=== PATIENT | female | born 1985 | race Caucasian/White ===

== ENCOUNTER 2018-12-05 18:01 | Inpatient (IN) ==
[~2018-12-05 18:01] MED LIST: CEFAZOLIN 2000MG 2,000 MG/15 ML SYR IV SCH
[2018-12-05] MEDS ORDERED: LACTATED RINGER'S 1,000 ML IV SCH ×3 (18:45→21:11)
--- NOTE | 2018-12-05 18:52 | Obstetrical Progress Note ---
Date of Service December 05, 2018 Assessment & Plan (1) Irregular contractions: Patient c/o contractions but nothing on monitor and she appears in no distress. Cervix is unchanged from yesterday. I'm unconvinced she is in true labor, though could be in latent phase. The challenge in this case is her tones. I have explained to the patient that I currently think her infant is likely truly tachycardic with decels and would recommend given she is 40wk, and that I do not feel she has the necessary time to allow for a TOLAC. She is very upset at the idea of a repeat and is tearful about this. I have reviewed the records and note that her prior occurred when she arrested dilation at 3cm with a 34wk baby, and I note the success calculator predicts a 44% chance of success. Further discussion with the patient will be ongoing but I anticipate moving to unless there is marked improvement in FHT soon. Present on Admission?: Yes (2) Previous delivery, antepartum condition or complication: Present on Admission?: Yes Subjective 33yo at 40wk presents with complaints of "labor for the last 62 hours." She reports contractions ranging from Q5-7 minutes since yesterday, when she was seen on L&D and sent home as cervix was unchanged. She returns today after calling the office to complain of ongoing painful contractions. She denies LOF, and has no VB, though she feels she lost her mucus plug earlier today. She reports good FM including here in L&D. Physical Exam Constitutional: WD/WN, vitals as above Eyes: PERRL, conjunctivae normal, anicteric sclerae ENMT: external ear and nose normal, oropharynx normal Neck: supple Respiratory: normal respiratory effort and able to speak in complete sentences; no respiratory distress Cardiovascular: Rate/Rhythm: regular rate and regular rhythm Extremities: + pedal edema Gastrointestinal (Abdomen): Gravid / AGA, nontender Musculoskeletal: no cyanosis or clubbing, extremities motor strength 5/5 Skin: no rashes, warm and dry Neurologic: patellar DTR's 2+ bilat, sensation intact Psychiatric: A+Ox3, euthymic affect Genitourinary: Speculum/Bimanual Exam: no vaginal lesions, no vaginal bleeding and uterus nontender OB Exam Abdomen: + vertex, + estimated weight (7) and + regular contractions (Q3) Manual OB Exam: + cervical dilation 1 cm, + cervical effacement 90%, + station -2 and + amniotic fluid (No leaking evident) OB Exam Monitor Tracing: + external FHT monitor used and + external uterine monitor used (No obvious contractions on short strip reviewed at the time I saw patient) Short tracing available thus far - baseline could be 160s with accels to 180, or baseline could be 180 with decels to 160. Variability is moderate. Lymphatic: no cervical or axillary lymphadenopathy Results & Data Vital Signs (Past 12 Hours) Vital Signs Temp Pulse Resp BP 12/05/18 18:07 98.2 F 96 H 22 131/88 PG Care Time/CCT Total # of Minutes Spent Total Time Spent with Patient: Total time spent is greater than 50% in coordination of care (as documented) at patient's floor/unit and/or counseling patient:
[2018-12-05] MEDS ORDERED: CITRIC ACID/SODIUM CITRATE 15 ML UDC ONE (18:59)
[2018-12-05 19:01] LABS: Basophils # (auto) 0.01 K/uL (0-0.2); Basophils % (auto) 0.1 %; Eosinophils # (auto) 0.04 K/uL (0-0.5); Eosinophils % (auto) 0.4 %; Hematocrit (blood only) 34.4 % (37-47); Hemoglobin 11.5 g/dL (12.0-16.0); Immature Granulocytes # (auto) 0.03 K/uL (0.00-0.02); Immature Granulocytes % (auto) 0.3 %; Lymphocytes # (auto) 1.76 K/uL (1.2-3.4); Mean Corpuscular Hemoglobin 27.5 pg (25-34); Mean Corpuscular Volume 82.3 fL (80-100); Mean Platelet Volume 10.3 fL (7.4-10.4); Monocytes # (auto) 0.89 K/uL (0.11-0.59); Monocytes % (auto) 8.6 %; Neutrophils # (auto) 7.64 K/uL (1.4-6.5); Neutrophils % (auto) 73.6 %; Platelet Count 233 K/uL (130-400); RDW Coefficient of Variation 14.9 % (11.5-14.5); RDW Standard Deviation 43.5 fL (36.4-46.3); Red Blood Count 4.18 M/uL (4.2-5.4); White Blood Count 10.37 K/uL (4.8-10.8)
--- NOTE | 2018-12-05 19:14 | Communication Note ---
Date of Service: December 05, 2018 Update: With further observation, the pattern of FHT appears to be most consistent with baseline 180bpm and late decels to 160, as contractions are now tracing at irregular intervals and each "dip" is preceded by a contraction. Patient counseled. She states she wants "to do whatever is best for baby." I recommended proceeding to and she agreed. She was consented with her two support persons in the room, as well as several nurses. Peds/Anesthesia have been notified. Neither are currently in-house and we are preparing for as we await their arrival.
[2018-12-05 19:21] LABS: Mean Corpuscular Hgb Conc 33.4 g/dL (32-36)
[2018-12-05] MEDS ORDERED: ePHEDrine sulfate 50 MG/ML AMP ONE (19:30)
[2018-12-05] MEDS ORDERED: ONDANSETRON INJ 2 MG/ML 2 ML VIAL ONE (19:30)
[2018-12-05] MEDS ORDERED: METOCLOPRAMIDE HCL INJ 5 MG/ML 2 ML VIAL ONE (19:30)
[2018-12-05] MEDS ORDERED: OXYTOCIN 10 UNITS/ML VIAL ONE ×3 (19:30→20:15)
[2018-12-05] MEDS ORDERED: MoRPHine SULFATE PF 1 MG/ML 10 ML AMP/VIAL ONE (19:30)
[2018-12-05] MEDS ORDERED: PHENYLEPHRINE HCL 10 MG/ML VIAL ONE (19:30)
[2018-12-05] MEDS ORDERED: fentaNYL citrate 100 MCG/2 ML VIAL ONE (19:30)
--- NOTE | 2018-12-05 20:41 | Operative Report ---
PG Post Operative Report Pre & Post Diagnosis Operation Date: 12/05/18 18:55 Pre-Op Diagnosis: 1.) Single IUP at 2.) Prior Section 3.) Non Reasurring Heart Tones 4.) Remote From Delivery Post-Op Diagnosis: Same as PreOp Procedure Operation Date: 12/05/18 18:55 Actual Procedures p Repeat low transverse Section - Lauren Hughes MD Surgeon Lauren Hughes MD Chief Digital Media Officer Carolynn Luz RN Estimated Blood Loss 650 Findings Consistent with Post-Op Diagnosis Specimens Placenta, cord blood Anesthesia Type Spinal Complications none Disposition Accompanied Patient To Recovery: Yes Disposition: L&D Description of Procedure The patient was brought to the operating room and placed on the table in the supine position with a leftward tilt, then prepped and draped in standard sterile fashion. A hard time out was taken prior to proceeding. A pfannensteil incision was created sharply and carried down to the fascia using bovie electrocautery. The fascia was nicked and then extended using velazco scissors. The edges of the fascia were grasped with Fabiola clamps and elevated, then sharply and bluntly dissected off the underlying rectus. The midline of the rectus was identified and bluntly . The peritoneum was bluntly entered, and this entry was extended using pressure from the surgeon's hands. The bladder retractor was placed and the lower uterine segment was examined and found to be well developed. A bladder flap was created and the retractor was replaced behind this flap to protect the bladder. A transverse lower uterine incision was then created, with final entry to the uterine cavity made in a blunt manner with the surgeon's finger. Clear amniotic fluid was encountered. The head was elevated to the incision and delivered using mild fundal pressure. The cord was doubly clamped and cut, then the vigorous was taken to the warmer for philosophy instructor care. The placenta was manually extracted, then the uterus was gently exteriorized from the maternal abdomen. The cavity was cleared of clot and debris using a dry lap sponge. The angles of the incision were identified with allis clamps, and the hysterotomy was then repaired in running locked fashion using 0-vicryl suture, followed by a second imbricating layer. The tubes and ovaries were examined and found to be normal bilaterally. The posterior gutter was irrigated and cleared of clot and debris. The uterus was then gently re-internalized to the abdomen. Lateral gutters were cleared of clot and debris using a damp lap sponge, and a final exam of the hysterotomy revealed a slight ooze at the R angle. This was controlled with application of 1gm navid and pressure. The rectus muscles were then allowed to reapproximate naturally. The angle of the fascia was grasped with a Fabiola clamp and the fascia was then repaired in running non-locked fashion with 1- vicryl suture. At the completion of repair, the fascia was examined and found to be free of any defect. The subcutaneous tissue was copiously irrigated and then reapproximated using 3-0 chromic. The skin was then closed using 4-0 monocryl in a running subcuticular fashion and a dermabond dressing was applied. The elliott was noted to be draining clear yellow urine as the patient was transferred back to her recovery room. I attest to the content of the Intraoperative Record and any orders documented therein. Any exceptions are noted below.
[2018-12-05] MEDS ORDERED: LACTATED RINGER'S 500 ML IV PRN (20:51)
[2018-12-05] MEDS ORDERED: METOCLOPRAMIDE HCL 20 MG in SODIUM CHLORIDE 0.9% 50 ML IV PRN (20:51)
[2018-12-05] MEDS ORDERED: NALOXONE HCL 0.4 MG/1 ML VIAL/CARP IV PRN (20:51)
[2018-12-05] MEDS ORDERED: MoRPHine SULFATE 2 MG/ML CARP IV PRN (20:51)
[2018-12-05] MEDS ORDERED: MoRPHine SULFATE PF 1 MG/ML 10 ML AMP/VIAL INT SPINAL ONE (20:51)
[2018-12-05] MEDS ORDERED: ONDANSETRON INJ 2 MG/ML 2 ML VIAL IV PRN ×2 (20:51→21:11)
[2018-12-05] MEDS ORDERED: NALOXONE HCL 1 MG in SODIUM CHLORIDE 0.9% 1000ML 1,000 ML IV PRN (20:51)
[2018-12-05] MEDS ORDERED: NALOXONE HCL 0.08 MG in SYRINGE 1.8 ML IV PRN (20:51)
[2018-12-05] MEDS ORDERED: DiphenhydrAMINE HCL 50 MG/ML VIAL IV PRN ×2 (20:51→21:11)
[2018-12-05] MEDS ORDERED: PROMETHAZINE HCL 25 MG in SODIUM CHLORIDE 0.9% 50 ML IV PRN ×2 (20:51→21:11)
[2018-12-05] MEDS ORDERED: ePHEDrine sulfate 50 MG/ML AMP IV PRN (20:51)
[2018-12-05] MEDS ORDERED: NALBUPHINE HCL INJ 10 MG/ML AMP IV PRN (20:51)
[2018-12-05] MEDS ORDERED: MEPERIDINE HCL 25 MG/ML CARP IV PRN (20:51)
--- NOTE | 2018-12-05 20:51 | Anesthesiology Consultation ---
Date of Service December 05, 2018 Assessment & Plan Chart Review Chart Review: Acceptable Risk for Surgery late entry secondary to urgent C/S. Full consult was performed with patient and consent signed prior to OR entrance Consults Requested none ASA ASA2 Proposed Anesthesia Anesthesia Type: Spinal History Surgery Operation Date: 12/05/18 18:55 Proposed Procedures p Section in - Lauren Hughes MD Height/Weight Height: 5 ft 3 in Weight: 94.801 kg Allergies Allergy/AdvReac Type Severity Reaction Status Date / Time Penicillins Allergy Verified 11/28/18 15:48 Medications Home Medications Medication Instructions Recorded Confirmed Last Taken vit-iron fum-folic ac 1 tab PO DAILY 12/04/18 12/04/18 12/03/18 08:00 [ Vitamin] ranitidine HCl 150 mg PO DAILY 12/04/18 12/04/18 12/03/18 08:00 sertraline [Zoloft] 25 mg PO DAILY 12/04/18 12/04/18 12/03/18 08:00 Active Medications Generic Name Dose Route Start Last Admin Trade Name Mary Kay PRN Reason Stop Dose Admin Citric Acid/Sodium Citrate 30 ml 12/06/18 06:00 12/05/18 19:20 Bicitra PO 12/06/18 06:01 30 ml PREOP EMILY Administration Cefazolin Sodium 2,000 mg in 15 mls @ 3.75 mls/min 12/05/18 06:00 12/05/18 19:33 Ancef 2000mg IV 12/05/18 23:00 3.75 mls/min PREOP EMILY Administration Protocol NPO Date Last Intake of Fluids: 12/05/18 Time Last Intake of Fluids: 18:45 Last Intake of Fluids Comment: water Date Last Intake of Solids: 12/05/18 Time Last Intake of Solids: 14:00 Past Medical History Medical History Ovarian cyst Varicella Exercise / Class Metabolic Activity II 4-5 Yardwork/Stairs/Walk up hill Past Family History Family History Father Hypertension Past Surgical History Surgical History H/O cervical biopsy H/O section H/O dilation and curettage History of oral surgery Past Anesthesia History No Hx of Anesthesia Complications and No Family Hx of Anesthesia Complications History of PONV No Hx of PONV and No Hx of Motion Sickness Social History Smoking Status: Former smoker tobacco type: e-cigarettes Do You Dip or Chew Tobacco: No Hx Alcohol Use: No Hx Substance Use: No substance use type: does not use Physical Exam Vital Signs Last Vital Signs Temp 36.8 C 12/05/18 18:07 Pulse 81 12/05/18 20:48 Resp 22 12/05/18 18:07 BP 120/73 12/05/18 20:43 Pulse Ox 98 12/05/18 20:48 ENMT Mouth: no TMJ abnormality Thyromental Distance: > or= 3.5 Finger Breadths Mallampati Class: II Neck normal visual inspection and trachea midline; neck extension not limited Respiratory normal respiratory effort Auscultation: lungs clear to auscultation bilaterally Cardiovascular Rate/Rhythm: regular rate and regular rhythm Heart Sounds: no murmur Musculoskeletal Spine: normal cervical ROM Extremities: full ROM of extremities Neurologic moves all extremities Psychiatric Orientation: alert and oriented x 3 Testing Laboratory Results 12/05/18 18:54 Blood Type A Positive 12/05/18 18:54 Antibody Screen NEGATIVE 12/05/18 18:54
--- NOTE | 2018-12-05 20:54 | Anesthesiology Progress Note ---
Date of Service December 05, 2018 Anesthesia Post Procedure Vital Signs Vital Signs: Temp Pulse Resp BP Pulse Ox 12/05/18 20:48 81 98 12/05/18 20:43 81 120/73 97 12/05/18 19:01 97 H 133/101 H 12/05/18 18:58 92 H 128/100 12/05/18 18:07 36.8 C 96 H 22 131/88 Transfer of Care Handoff Completed per policy Notes Mental Status: alert / awake / arousable and participated in evaluation Nausea / Vomiting: adequately controlled Pain: adequately controlled Airway Patency, RR, SpO2: stable & adequate BP & HR: stable & adequate Hydration State: stable & adequate Neuraxial Anesthesia: was administered Anesthetic Complications: no major complications apparent
[2018-12-05] MEDS ORDERED: DC INTRASPINAL MORPHINE SCH (21:00)
[2018-12-05] MEDS ORDERED: NO NARCOTICS OR SEDATIVES SCH (21:00)
[2018-12-05] MEDS ORDERED: SODIUM CHLORIDE 0.9% 1000ML 1,000 ML IV SCH (21:00)
[2018-12-05] MEDS ORDERED: BENZOCAINE 20% AER SPR 82.5 GM CAN EXT PRN (21:11)
[2018-12-05] MEDS ORDERED: HYDROCORTISONE ACETATE 25 MG SUPP PR PRN (21:11)
[2018-12-05] MEDS ORDERED: SENNA 8.6 MG TAB PO PRN (21:11)
[2018-12-05] MEDS ORDERED: MAGNESIUM HYDROXIDE SUSP 30 ML UDC PO PRN (21:11)
[2018-12-05] MEDS ORDERED: SUPERCREAM 0.870% 15 GM JAR EXT PRN (21:11)
[2018-12-05] MEDS ORDERED: DIPHTHERIA/TETANUS/PERTUSSIS 0.5 ML SYR/VIAL IM ONE (21:11)
[2018-12-05] MEDS ORDERED: OXYTOCIN 30 UNITS in LACTATED RINGER'S 1,000 ML IV SCH (21:30)
[2018-12-05] MEDS: KETOROLAC 30 MG/ML VIAL IV PRN (22:40)
[2018-12-06] MEDS: SIMETHICONE 80 MG CHEW PO SCH ×5 (01:02→20:54)
[2018-12-06] MEDS: DOCUSATE SODIUM 100 MG CAP PO SCH ×3 (01:02→20:54)
[2018-12-06] MEDS: KETOROLAC 30 MG/ML VIAL IV PRN ×2 (05:05→12:51)
--- NOTE | 2018-12-06 05:51 | Obstetrical Progress Note ---
Date of Service December 06, 2018 Assessment & Plan (1) : 33 yo s/p repeat C/S @ 39.1 for nonreassuring FHT -PPD/POD#1 - GBS negative, Blood Type A+ - Feels well today. Eating well, voiding well, ambulating well. - Pain well controlled. - Routine post operative care - After discharge will have [address] Hughes. Supervising Physician Co-Signing Physician Notes I have reviewed the resident's note and examined the patient myself, and agree with the note above. Subjective Doing well this morning, she stated "I breastfeed my other child for 3 weeks" she explained that her supply decreased despite pumping last time. No other questions or concerns today. Review of Systems Review of Systems: Denies fever, chills, sweats Denies shortness of breath, difficulty breathing, chest pain, palpitations, chest pressure. Denies breast pain. Denies dysuria. Denies headache. Physical Exam Physical Exam: General: Alert, oriented. No acute distress. Cardiac: Regular rate and rhythm, no murmurs/rubs/gallops. Respiratory: Clear to auscultation anterior and posteriorly, no wheezes/rales/rhonchi. No increased work of breathing. Symmetrical chest rise. N o respiratory distress. Abdomen: Soft, nontender, nondistended. Bowel sounds present. Uterus: Uterine fundus firm, palpable at the umbilicus. Lower Extremities: No lower extremity edema or swelling. No deep calf pain. Melissa's negative bilaterally. surgical incision intact, clean, dry. No warmth, erythema, discharge, or dehiscence. Results & Data Vital Signs (Past 12 Hours) Vital Signs Temp Pulse Pulse Resp BP BP Pulse Ox 12/06/18 05:11 18 99 12/06/18 04:30 18 98 12/06/18 03:40 36.7 C 97 H 18 115/79 98 12/06/18 02:45 18 98 12/06/18 01:23 18 99 12/06/18 00:20 18 100 12/05/18 23:50 36.7 C 89 18 109/69 100 12/05/18 22:43 36.9 C 74 20 122/65 100 12/05/18 22:38 84 100 12/05/18 22:34 81 118/57 L 12/05/18 22:33 77 100 12/05/18 22:28 75 100 12/05/18 22:23 92 H 100 12/05/18 22:18 86 100 12/05/18 22:13 85 20 139/90 100 12/05/18 22:08 88 100 12/05/18 22:03 84 128/83 100 12/05/18 21:58 76 100 12/05/18 21:54 78 124/78 12/05/18 21:53 82 100 12/05/18 21:48 89 100 12/05/18 21:43 36.9 C 86 20 122/76 100 12/05/18 21:38 86 100 12/05/18 21:34 80 18 120/72 12/05/18 21:33 80 99 12/05/18 21:28 75 99 12/05/18 21:23 76 20 116/82 99 12/05/18 21:18 80 98 12/05/18 21:13 86 20 118/73 97 12/05/18 21:08 83 98 12/05/18 21:03 75 18 116/74 98 12/05/18 20:59 86 90 12/05/18 20:58 86 97 12/05/18 20:56 64 120/75 12/05/18 20:55 20 12/05/18 20:53 81 94 12/05/18 20:48 81 98 12/05/18 20:43 36.7 C 81 18 120/73 97 12/05/18 19:01 97 H 133/101 H 12/05/18 18:58 92 H 128/100 12/05/18 18:07 36.8 C 96 H 22 131/88 PG Care Time/CCT Total # of Minutes Spent Total Time Spent with Patient: Total time spent is greater than 50% in coordination of care (as documented) at patient's floor/unit and/or counseling patient: Resident Activity Tracking Resident Involvement: Resident Care Provided Care Provided: Adult Hospital Medicine
[2018-12-06] MEDS ORDERED: CITRIC ACID/SODIUM CITRATE 15 ML UDC PO SCH (06:00)
[2018-12-06 06:54] LABS: Basophils # (auto) 0.01 K/uL (0-0.2); Basophils % (auto) 0.1 %; Eosinophils # (auto) 0.06 K/uL (0-0.5); Eosinophils % (auto) 0.8 %; Hemoglobin 9.3 g/dL (12.0-16.0); Immature Granulocytes # (auto) 0.02 K/uL (0.00-0.02); Immature Granulocytes % (auto) 0.3 %; Lymphocytes # (auto) 0.76 K/uL (1.2-3.4); Lymphocytes % (auto) 10.1 %; Mean Corpuscular Hemoglobin 27.7 pg (25-34); Mean Corpuscular Hgb Conc 33.2 g/dL (32-36); Mean Corpuscular Volume 83.3 fL (80-100); Mean Platelet Volume 10.8 fL (7.4-10.4); Monocytes # (auto) 0.35 K/uL (0.11-0.59); Monocytes % (auto) 4.7 %; Neutrophils # (auto) 6.29 K/uL (1.4-6.5); Platelet Count 178 K/uL (130-400); RDW Coefficient of Variation 15.2 % (11.5-14.5); RDW Standard Deviation 45.5 fL (36.4-46.3); Red Blood Count 3.36 M/uL (4.2-5.4); White Blood Count 7.49 K/uL (4.8-10.8)
[2018-12-06] MEDS: FERROUS SULFATE 325 MG TAB PO SCH (08:32)
[2018-12-06] MEDS: PRENATAL VITAMIN 1 TAB PO SCH (08:32)
[2018-12-06] MEDS ORDERED: SERTRALINE HCL 50 MG TABLET PO SCH (09:00)
[2018-12-06] MEDS ORDERED: MEPERIDINE HCL 50 MG/ML CARP IV PRN (14:51)
[2018-12-06] MEDS ORDERED: KETOROLAC 30 MG/ML VIAL IV PRN (14:51)
[2018-12-06] MEDS ORDERED: DiphenhydrAMINE HCL 50 MG/ML VIAL IV PRN (14:51)
[2018-12-06] MEDS: IBUPROFEN 600 MG TAB PO PRN ×2 (18:53→23:29)
[2018-12-06] MEDS: OXYCODONE/ACETAMINOPHEN 5mg/325mg TAB PO PRN ×2 (18:53→23:29)
[2018-12-07] MEDS: OXYCODONE/ACETAMINOPHEN 5mg/325mg TAB PO PRN ×4 (04:20→20:59)
[2018-12-07] MEDS: IBUPROFEN 600 MG TAB PO PRN ×4 (04:21→20:58)
--- NOTE | 2018-12-07 05:21 | Obstetrical Progress Note ---
Date of Service December 07, 2018 Assessment & Plan (1) : 33 yo s/p repeat C/S @ 39.1 for nonreassuring FHT -POD#2 - GBS negative, Blood Type A+ - Feels well today. Eating well, voiding well, ambulating well. - Pain well controlled. - Routine post operative care. - After discharge will have [address] Hughes. Supervising Physician Co-Signing Physician Notes Patient seen and evaluated and agree with the above findings and plan. Doing well. Routine care Subjective Doing well this morning, she stated "I breastfeed my other child for 3 weeks" she explained that her supply decreased despite pumping last time. No other questions or concerns today. Her pain was a 2/10. Review of Systems Review of Systems: Denies fever, chills, sweats Denies shortness of breath, difficulty breathing, chest pain, palpitations, chest pressure. Denies breast pain. Denies dysuria. Denies headache. Physical Exam Physical Exam: General: Alert, oriented. No acute distress. Cardiac: Regular rate and rhythm, no murmurs/rubs/gallops. Respiratory: Clear to auscultation anterior and posteriorly, no wheezes/rales/rhonchi. No increased work of breathing. Symmetrical chest rise. No respiratory distress. Abdomen: Soft, nontender, nondistended. Bowel sounds present. Uterus: Uterine fundus firm, palpable _cm below umbilicus. Lower Extremities: No lower extremity edema or swelling. No deep calf pain. Melissa's negative bilaterally. surgical incision intact, clean, dry. No warmth, erythema, discharge, or dehiscence. Results & Data Vital Signs (Past 12 Hours) Vital Signs Temp Pulse Resp BP Pulse Ox 12/06/18 23:25 36.7 C 81 17 101/67 98 12/06/18 20:50 36.7 C 100 H 18 101/67 97 PG Care Time/CCT Total # of Minutes Spent Total Time Spent with Patient: Total time spent is greater than 50% in coordination of care (as documented) at patient's floor/unit and/or counseling patient: Resident Activity Tracking Resident Involvement: Resident Care Provided Care Provided: Adult [facility] Medicine
[2018-12-07 06:34] LABS: Hematocrit (blood only) 25.3 % (37-47); Hemoglobin 8.3 g/dL (12.0-16.0)
[2018-12-07] MEDS: SIMETHICONE 80 MG CHEW PO SCH ×4 (08:03→20:59)
[2018-12-07] MEDS: PRENATAL VITAMIN 1 TAB PO SCH (08:03)
[2018-12-07] MEDS: FERROUS SULFATE 325 MG TAB PO SCH (08:03)
[2018-12-07] MEDS: DOCUSATE SODIUM 100 MG CAP PO SCH ×2 (08:03→20:58)
[2018-12-08] MEDS: OXYCODONE/ACETAMINOPHEN 5mg/325mg TAB PO PRN ×2 (01:22→08:02)
[2018-12-08] MEDS: IBUPROFEN 600 MG TAB PO PRN ×2 (01:23→08:01)
--- NOTE | 2018-12-08 06:22 | Obstetrical Progress Note ---
Date of Service December 08, 2018 Assessment & Plan (1) : 33 yo s/p repeat C/S @ 39.1 for nonreassuring FHT -POD#3 - GBS negative, Blood Type A+ - Feels well today. Eating well, voiding well, ambulating well. - Pain well controlled. - Routine post operative care. - After discharge will have [address] Hughes. Supervising Physician Co-Signing Physician Notes Resident Physician Supervision Note: I was present with Dr. Steward during the history and exam. I discussed the case with the resident and agree with the findings and plan as documented in the note. Any exceptions or clarifications are listed here: POD#3 doing well. DC home. Instructions discussed . Documented By: Kaylie Germain, DO Subjective Doing well this morning, she stated "I breastfeed my other child for 3 weeks" she explained that her supply decreased despite pumping last time. No other questions or concerns today. Her pain was a 2/10. Her bleeding is described as, "light." Review of Systems Review of Systems: Denies fever, chills, sweats Denies shortness of breath, difficulty breathing, chest pain, palpitations, chest pressure. Denies breast pain. Denies dysuria. Denies headache. Physical Exam Physical Exam: General: Alert, oriented. No acute distress. Cardiac: Regular rate and rhythm, no murmurs/rubs/gallops. Respiratory: Clear to auscultation anterior and posteriorly, no wheezes/rales/rhonchi. No increased work of breathing. Symmetrical chest rise. No respiratory distress. Abdomen: Soft, nontender, nondistended. Bowel sounds present. Uterus: Uterine fundus firm, palpable 1 cm below umbilicus. Lower Extremities: No lower extremity edema or swelling. No deep calf pain. Melissa's negative bilaterally. surgical incision intact, clean, dry. No warmth, erythema, discharge, or dehiscence. Results & Data Vital Signs (Past 12 Hours) Vital Signs Temp Pulse Resp BP Pulse Ox 12/07/18 23:25 36.5 C 87 20 116/75 98 12/07/18 19:30 36.7 C 92 H 20 112/78 99 PG Care Time/CCT Total # of Minutes Spent Total Time Spent with Patient: Total time spent is greater than 50% in coordination of care (as documented) at patient's floor/unit and/or counseling patient: Resident Activity Tracking Resident Involvement: Resident Care Provided Care Provided: Adult [facility] Medicine
[2018-12-08] MEDS: PRENATAL VITAMIN 1 TAB PO SCH (08:01)
[2018-12-08] MEDS: FERROUS SULFATE 325 MG TAB PO SCH (08:01)
[2018-12-08] MEDS: DOCUSATE SODIUM 100 MG CAP PO SCH (08:01)
[2018-12-08] MEDS: SIMETHICONE 80 MG CHEW PO SCH (08:03)
--- NOTE | 2018-12-09 10:23 | Discharge Summary ---
Date of Service December 09, 2018 Discharge Data Consultations 12/05/18 18:41 Consult Anesthesiology Stat Procedures Performed Operation Date: 12/05/18 18:55 Actual Procedures p Repeat Section for the of a live female child at 2003.(Left) - Lauren Hughes MD Hospital Course (1) Previous delivery, antepartum condition or complication: Patient underwent uncomplicated repeat section for NRFHT remote from delivery. See op report for details. She was discharged home in good condition on POD#3 with usual follow up instructions.
== END 2018-12-08 13:02 | disposition home or self-care (01) | DRG 788 ==
LOC: OPB 18:01 → 4S1 18:02 → 4S2 23:22
DX: Z3A.40 40 weeks gestation of pregnancy; O76 Abnormality in fetal heart rate and rhythm complicating labor and delivery; Z37.0 Single live birth

== ENCOUNTER 2020-03-14 13:49 | Inpatient (IN) ==
[2020-03-14] MEDS ORDERED: HYDROmorphone INJ 0.5 MG/0.5 ML SYR IV STA (14:16)
[2020-03-14] MEDS ORDERED: ONDANSETRON INJ 2 MG/ML 2 ML VIAL IV STA (14:16)
--- NOTE | 2020-03-14 14:24 | Emergency Department Note ---
Impression & Plan Generalized abdominal pain, Vaginal spotting ED Provider Note INFORMANT: Patient ED PROVIDER(S): Ant Borden MD CHIEF COMPLAINT: Abdominal pain PLAN: Disposition: Pending admission Condition: Good Outpatient prescription management: none Referral: None MEDICAL DECISION MAKING: The patient presented emergency room complaining of abdominal pain. She notes being almost 6 weeks . She received fentanyl prehospital and this helped transiently. She was given Zofran and Dilaudid. She was hydrated. The patient underwent blood work and ultrasound imaging. She does have an IUP with heartbeat at this point in time. I discussed the case with [employer], Dr. Lee. She felt treatment with antiemetics and Pepcid would be reasonable. This was performed. The patient was given Reglan and Pepcid. She was given additional Dilaudid. She was still very uncomfortable. At this point time I was concerned about the pain in her abdomen and she went for an abdomen complete ultrasound. The patient's case was signed out to Dr. Patel. I did review the findings with Dr. Jason of internal medicine as she will likely need to be admitted however the ultrasound will dictate further actions. Triage Nursing notes reviewed and agree them. Prior medical records reviewed regarding her work-up at [facility]. MRI report was obtained and was read as negative. Normal appendix. Vital Signs: reviewed and remarkable for no significant abnormalities Differential diagnosis: Appendicitis, ovarian cyst, ovarian torsion, ectopic , TOA, PID, infections, diverticulitis, UTI, obstruction, mesenteric ischemia, aortic pathology, inflammatory bowel disease, renal colic, PUD, pancreatitis, biliary pathology, hernia, volvulus, constipation, as well as other pathologies. Diagnostics interpreted by me: Cardiac Monitoring: Cardiac monitoring ordered by me: The patient was placed on continuous cardiac monitoring and observed. It revealed a sinus tachycardia at 106 beats per minute without ectopy or evidence of dysrhythmia. Imaging studies: Ultrasound imaging of the pelvis reveals a normal IUP. No pathology noted. Abdomen complete ultrasound pending. HPI: The patient is a 34 year old female at approximately 6 weeks who presents to the Emergency Room with complaints of generalized abdominal pain and vaginal spotting. This started 2 days ago and is worsening. The patient also notes the following associated symptoms, nausea and vomiting, constipation. The patient has found no relieving factors. Current pain is rated as 7/10. The patient presented to the ER at [facility] the day before yesterday. She had lower abdominal pain. She had an ultrasound performed and confirmed an IUP. She was discharged. Pain worsened and became generalized. She went back to the ER. She states MRI was performed to rule out appendicitis and obstruction and this was negative. She was discharged. The pain and nausea became worse today. Pain migrated to the epigastrium. She describes it as crampy. She has not had any more vaginal spotting, just some mild brown discharge when she wipes after urination. Pt denies LOC, headache, fevers, chills, diaphoresis, visual changes, neck pain, chest pain, breathing difficulties, back pain, melena, hematochezia, urinary symptoms, numbness, weakness, lymphadenopathy, rash, or other complaints. ROS: See above HPI for pertinent positives & negatives. A total of 10 systems reviewed and were otherwise negative. PAST MEDICAL HISTORY:See Below , IBS PAST SURGICAL HISTORY:See Below, FAMILY HISTORY:See Below SOCIAL HISTORY:See Below, lives with boyfriend and family HOME MEDICATIONS:See Below ALLERGIES:See Below VITALS:See Below PHYSICAL EXAMINATION: GENERAL: Awake, alert, uncomfortable-appearing, in no distress HENT: Normocephalic, atraumatic. Oropharynx unremarkable. EYES: Normal conjunctiva. Sclera non-icteric. NECK: Inspection normal. Non-tender. Supple. No nuchal rigidity. FROM. No masses. RESPIRATORY: Clear to auscultation. No wheezes. No rales. Normal respiratory effort. CARDIAC: Normal rate. Normal rhythm. No murmurs. No rubs. Extremities warm and well perfused. Pulses equal. No JVD. GI: Soft, non-distended. Generalized tenderness to palpation. No rebound or guarding. No masses. RECTAL: Deferred. MUSCULOSKELETAL: Atraumatic. Chest examination reveals no tenderness. The back is symmetrical on inspection without obvious abnormality. There is no CVA tenderness to palpation. No joint edema. LOWER EXTREMITIES: Calves are equal size bilaterally and non-tender. No edema. No discoloration. NEURO: Normal sensorium. No sensory or motor deficits noted. SKIN: No rash or jaundice noted. Ant Borden MD Past Med/Surg History Medical History Chronic idiopathic constipation Eosinophilic esophagitis Ovarian cyst Surgical History H/O cervical biopsy H/O section H/O dilation and curettage History of laparoscopic appendectomy (03/15/20) Laparoscopic Cholecystectomy and Laparoscopic Appendectomy Dr. Vale 03/15/2020 History of oral surgery Hx laparoscopic cholecystectomy (03/15/20) Laparoscopic Cholecystectomy and Laparoscopic Appendectomy Dr. Vale 03/15/2020 Family History Father Hypertension Other Gallbladder disease Social History Smoking Status: Former smoker Second Hand Exposure: No; Hx Alcohol Use: No Hx Substance Use: No Preferred Language: Syriac Communication Ability: Effective Web Services Manager Required: No Beliefs That Will Affect Care: None marital status: Single Current Living Situation: Significant Other Current Living Situation Comment: Pt lives with significant other and 14 year old son. Pt has 2 cats. Feels Safe at Home: Yes and No Is there a partner from a previous relationship who is making you feel unsafe now?: No Assistive Devices: None Allergies Allergies Allergy/AdvReac Type Severity Reaction Status Date / Time adhesive tape Allergy Mild blisters Unverified 03/14/20 15:01 on skin Penicillins Allergy Verified 03/14/20 15:00 Home Meds Home Medications Medication Instructions Recorded Confirmed acetaminophen-codeine 1 tab PO ONCE 03/14/20 03/14/20 [Tylenol-Codeine #2] cetirizine [Zyrtec] 10 mg PO QAM 03/14/20 03/14/20 21-iron fu-folic acid 1 tab PO QAM 03/14/20 03/14/20 [ Complete] Results & Data (ED) Vital Signs Vital Signs - 24 hr 03/14/20 20:26 03/14/20 20:30 03/14/20 20:40 Pulse Rate 124 H 124 H Pulse Rate from SpO2 Sensor 125 H 123 H Respiratory Rate 55 H 21 19 Blood Pressure 122/82 Blood Pressure Mean 87 Pulse Oximetry 96 96 03/14/20 21:22 03/14/20 21:25 03/14/20 21:26 Pulse Rate 117 H 114 H 122 H Pulse Rate from SpO2 Sensor 115 H 121 H Respiratory Rate 21 16 21 Blood Pressure 114/79 Blood Pressure Mean 87 Pulse Oximetry 97 100 03/14/20 21:30 03/14/20 21:40 03/14/20 22:00 Pulse Rate 120 H 115 H 115 H Pulse Rate from SpO2 Sensor 118 H 114 H 115 H Respiratory Rate 17 19 20 Blood Pressure 117/76 112/70 Blood Pressure Mean 82 84 Pulse Oximetry 97 97 98 03/14/20 22:01 03/14/20 22:20 03/14/20 22:30 Pulse Rate 116 H 120 H 119 H Pulse Rate from SpO2 Sensor 117 H 120 H Respiratory Rate 19 19 17 Blood Pressure 117/81 Blood Pressure Mean 89 Pulse Oximetry 97 98 03/14/20 22:31 03/14/20 22:40 03/14/20 23:00 Pulse Rate 115 H 122 H 117 H Pulse Rate from SpO2 Sensor Respiratory Rate 20 27 H 22 Blood Pressure 117/81 Blood Pressure Mean 91 Pulse Oximetry 03/14/20 23:01 Pulse Rate 117 H Pulse Rate from SpO2 Sensor Respiratory Rate 16 Blood Pressure Blood Pressure Mean Pulse Oximetry Laboratory Data Result diagrams: 03/15/20 06:11 03/15/20 06:11 Lab Results 03/14/20 03/14/20 03/14/20 Range/Units 14:23 14:23 14:23 WBC 14.18 H (4.8-10.8) K/uL RBC 4.52 (4.2-5.4) M/uL Hgb 12.8 (12.0-16.0) g/dL Hct 37.8 (37-47) % MCV 83.6 (80-100) fL MCH 28.3 (25-34) pg MCHC 33.9 (32-36) g/dL RDW Std Deviation 39.7 (36.4-46.3) fL RDW Coeff of Rustam 13.2 (11.5-14.5) % Plt Count 247 (130-400) K/uL MPV 10.9 H (7.4-10.4) fL Immature Gran % (Auto) 0.2 % Neut % (Auto) 89.0 % Lymph % (Auto) 4.7 % Sanborn % (Auto) 5.9 % Eos % (Auto) 0.1 % Baso % (Auto) 0.1 % Neut # (Auto) 12.61 H (1.4-6.5) K/uL Lymph # (Auto) 0.67 L (1.2-3.4) K/uL Sanborn # (Auto) 0.83 H (0.11-0.59) K/uL Eos # (Auto) 0.02 (0-0.5) K/uL Baso # (Auto) 0.02 (0-0.2) K/uL Immature Gran # (Auto) 0.03 H (0.00-0.02) K/uL PT 11.4 (9.0-12.0) Seconds INR 1.1 (0.9-1.1) APTT 30.6 (21.0-31.0) Seconds PTT Ratio 1.1 Sodium (136-145) mmol/L Potassium (3.5-5.1) mmol/L Chloride (98-107) mmol/L Carbon Dioxide (21-32) mmol/L Anion Gap (3-11) BUN (7-18) mg/dl Creatinine (0.6-1.2) mg/dl Est Cr Clr Drug Dosing Est GFR ( Amer) Est GFR (Non-Af Amer) BUN/Creatinine Ratio (10-20) Glucose (70-99) mg/dl Lactate (0.4-2.0) mmol/L Calcium (8.5-10.1) mg/dl Phosphorus (2.5-4.9) mg/dl Magnesium (1.8-2.4) mg/dl Total Bilirubin (0.2-1) mg/dl AST (15-37) U/L ALT (12-78) U/L Alkaline Phosphatase (45-117) U/L Total Protein (6.4-8.2) gm/dl Albumin (3.4-5.0) gm/dl Globulin (2.5-4.0) gm/dl Albumin/Globulin Ratio (0.9-2) Lipase (73-393) U/L HCG, Quant mIU/ml COVID-19 Eval Order SARS-CoV-2 (PCR) (Negative) Influenza Type A (PCR) (Neg) Influenza Type B (PCR) (Neg) RSV (RT-PCR) (Neg) Blood Type A Positive 03/14/20 03/14/20 03/14/20 Range/Units 14:23 14:23 21:25 WBC (4.8-10.8) K/uL RBC (4.2-5.4) M/uL Hgb (12.0-16.0) g/dL Hct (37-47) % MCV (80-100) fL MCH (25-34) pg MCHC (32-36) g/dL RDW Std Deviation (36.4-46.3) fL RDW Coeff of Rustam (11.5-14.5) % Plt Count (130-400) K/uL MPV (7.4-10.4) fL Immature Gran % (Auto) % Neut % (Auto) % Lymph % (Auto) % Sanborn % (Auto) % Eos % (Auto) % Baso % (Auto) % Neut # (Auto) (1.4-6.5) K/uL Lymph # (Auto) (1.2-3.4) K/uL Sanborn # (Auto) (0.11-0.59) K/uL Eos # (Auto) (0-0.5) K/uL Baso # (Auto) (0-0.2) K/uL Immature Gran # (Auto) (0.00-0.02) K/uL PT (9.0-12.0) Seconds INR (0.9-1.1) APTT (21.0-31.0) Seconds PTT Ratio Sodium 134 L (136-145) mmol/L Potassium 3.8 (3.5-5.1) mmol/L Chloride 102 (98-107) mmol/L Carbon Dioxide 26 (21-32) mmol/L Anion Gap 6.0 (3-11) BUN 10 (7-18) mg/dl Creatinine 0.69 (0.6-1.2) mg/dl Est Cr Clr Drug Dosing Not Reportable Est GFR ( Amer) 130.7 Est GFR (Non-Af Amer) 112.8 BUN/Creatinine Ratio 14.8 (10-20) Glucose 106 H (70-99) mg/dl Lactate (0.4-2.0) mmol/L Calcium 8.4 L (8.5-10.1) mg/dl Phosphorus 1.7 L (2.5-4.9) mg/dl Magnesium 2.8 H (1.8-2.4) mg/dl Total Bilirubin 0.5 (0.2-1) mg/dl AST 8 L (15-37) U/L ALT 12 (12-78) U/L Alkaline Phosphatase 86 (45-117) U/L Total Protein 7.2 (6.4-8.2) gm/dl Albumin 2.9 L (3.4-5.0) gm/dl Globulin 4.3 H (2.5-4.0) gm/dl Albumin/Globulin Ratio 0.7 L (0.9-2) Lipase 48 L (73-393) U/L HCG, Quant 5036 mIU/ml COVID-19 Eval Order CovFluRsv at [facility] SARS-CoV-2 (PCR) (Negative) Influenza Type A (PCR) (Neg) Influenza Type B (PCR) (Neg) RSV (RT-PCR) (Neg) Blood Type 03/14/20 03/14/20 Range/Units 21:25 21:30 WBC (4.8-10.8) K/uL RBC (4.2-5.4) M/uL Hgb (12.0-16.0) g/dL Hct (37-47) % MCV (80-100) fL MCH (25-34) pg MCHC (32-36) g/dL RDW Std Deviation (36.4-46.3) fL RDW Coeff of Rustam (11.5-14.5) % Plt Count (130-400) K/uL MPV (7.4-10.4) fL Immature Gran % (Auto) % Neut % (Auto) % Lymph % (Auto) % Sanborn % (Auto) % Eos % (Auto) % Baso % (Auto) % Neut # (Auto) (1.4-6.5) K/uL Lymph # (Auto) (1.2-3.4) K/uL Sanborn # (Auto) (0.11-0.59) K/uL Eos # (Auto) (0-0.5) K/uL Baso # (Auto) (0-0.2) K/uL Immature Gran # (Auto) (0.00-0.02) K/uL PT (9.0-12.0) Seconds INR (0.9-1.1) APTT (21.0-31.0) Seconds PTT Ratio Sodium (136-145) mmol/L Potassium (3.5-5.1) mmol/L Chloride (98-107) mmol/L Carbon Dioxide (21-32) mmol/L Anion Gap (3-11) BUN (7-18) mg/dl Creatinine (0.6-1.2) mg/dl Est Cr Clr Drug Dosing Est GFR ( Amer) Est GFR (Non-Af Amer) BUN/Creatinine Ratio (10-20) Glucose (70-99) mg/dl Lactate 0.8 (0.4-2.0) mmol/L Calcium (8.5-10.1) mg/dl Phosphorus (2.5-4.9) mg/dl Magnesium (1.8-2.4) mg/dl Total Bilirubin (0.2-1) mg/dl AST (15-37) U/L ALT (12-78) U/L Alkaline Phosphatase (45-117) U/L Total Protein (6.4-8.2) gm/dl Albumin (3.4-5.0) gm/dl Globulin (2.5-4.0) gm/dl Albumin/Globulin Ratio (0.9-2) Lipase (73-393) U/L HCG, Quant mIU/ml COVID-19 Eval Order SARS-CoV-2 (PCR) NEGATIVE (Negative) Influenza Type A (PCR) Negative (Neg) Influenza Type B (PCR) Negative (Neg) RSV (RT-PCR) Negative (Neg) Blood Type Administered Medications Acetaminophen/Codeine Phosphate (Acetaminophen W/Codeine #3 1 Tab) 1 tab PO Q4H PRN PRN Reason: Pain Stop: 04/14/20 11:28 Last Admin: 03/15/20 18:01 Dose: 1 tab Documented by: [id number] Admin: 03/15/20 11:59 Dose: 1 tab Documented by: [id number] Hydromorphone HCl (Hydromorphone Inj 0.5 Mg/0.5 Ml Syr) 0.5 mg IV Q2H PRN PRN Reason: Pain Stop: 03/29/20 00:37 Last Admin: 03/15/20 04:56 Dose: 0.5 mg Documented by: [id number] Admin: 03/15/20 02:43 Dose: 0.5 mg Documented by: [id number] Famotidine 20 mg/ Syringe 5 mls @ 2.5 mls/min IV DAILY EMILY Stop: 04/14/20 08:59 Last Admin: 03/15/20 11:33 Dose: Not Given Documented by: [id number] Sodium Chloride (Nss) 500 mls @ 80 mls/hr IV .Q6H15M EMILY Stop: 04/14/20 11:28 Last Admin: 03/15/20 19:10 Dose: 80 mls/hr Documented by: [id number] Infusion: 03/15/20 19:10 Dose: 0 mls/hr Documented by: [id number] Admin: 03/15/20 13:08 Dose: 80 mls/hr Documented by: [id number] Ceftriaxone Sodium 1,000 mg/ (Dextrose) 50 mls @ 100 mls/hr IV Q24H [facility]; Protocol Stop: 03/24/20 15:59 Last Infusion: 03/15/20 18:02 Dose: 0 mls/hr Documented by: [id number] Admin: 03/15/20 17:09 Dose: 100 mls/hr Documented by: [id number] Prenat Multivit/Mize/Iron/Folic Ac ( Vitamin 1 Tab) 1 tab PO QAM [facility] Stop: 04/14/20 08:59 Last Admin: 03/15/20 11:33 Dose: Not Given Documented by: [id number] Discontinued Medications Fentanyl Citrate (Fentanyl Citrate 100 Mcg/2 Ml Vial) 25 mcg IV Q5M PRN PRN Reason: PACU Use Only-Pain Stop: 03/15/20 16:07 Last Admin: 03/15/20 10:30 Dose: 25 mcg Documented by: [id number] Admin: 03/15/20 10:15 Dose: 25 mcg Documented by: [id number] Admin: 03/15/20 10:10 Dose: 25 mcg Documented by: [id number] Admin: 03/15/20 10:04 Dose: 25 mcg Documented by: [id number] Hydromorphone HCl (Hydromorphone Inj 0.5 Mg/0.5 Ml Syr) 0.5 mg IV NOW STA Stop: 03/14/20 14:17 Last Admin: 03/14/20 14:39 Dose: 0.5 mg Documented by: [id number] Hydromorphone HCl (Hydromorphone Inj 0.5 Mg/0.5 Ml Syr) 0.5 mg IV Q15M PRN PRN Reason: Pain Stop: 03/28/20 16:45 Last Admin: 03/14/20 20:11 Dose: 0.5 mg Documented by: [id number] Hydromorphone HCl (Hydromorphone Inj 0.5 Mg/0.5 Ml Syr) Confirm Administered Dose 0.5 mg .ROUTE .STK-MED ONE Stop: 03/15/20 00:43 Last Admin: 03/15/20 00:43 Dose: 0.5 mg Documented by: [id number] Sodium Chloride (Nss 1000ml) 1,000 mls @ 999 mls/hr IV .Q1H1M EMILY Stop: 03/14/20 15:30 Last Infusion: 03/14/20 18:11 Dose: 0 mls/hr Documented by: [id number] Admin: 03/14/20 14:39 Dose: 999 mls/hr Documented by: [id number] Sodium Chloride (Nss 1000ml) 1,000 mls @ 999 mls/hr IV .Q1H1M ONE Stop: 03/14/20 19:15 Last Infusion: 03/14/20 20:59 Dose: 0 mls/hr Documented by: [id number] Admin: 03/14/20 18:39 Dose: 999 mls/hr Documented by: [id number] Ceftriaxone Sodium (Rocephin) 1,000 mg in 50 mls @ 100 mls/hr IV NOW STA Stop: 03/14/20 18:44 Last Infusion: 03/14/20 20:59 Dose: 0 mls/hr Documented by: [id number] Admin: 03/14/20 18:39 Dose: 100 mls/hr Documented by: [id number] Famotidine (Pepcid 20mg Iv Push) 20 mg in 5 mls @ 2.5 mls/min IV NOW STA Stop: 03/14/20 18:24 Last Admin: 03/14/20 18:40 Dose: 2.5 mls/min Documented by: [id number] Promethazine HCl (Phenergan) 25 mg in 51 mls @ 204 mls/hr IV NOW STA Stop: 03/14/20 22:28 Last Infusion: 03/14/20 22:46 Dose: 0 mls/hr Documented by: [id number] Admin: 03/14/20 22:25 Dose: 204 mls/hr Documented by: [id number] Sodium Chloride (Nss 1000ml) 1,000 mls @ 100 mls/hr IV .Q10H EMILY Stop: 03/15/20 20:59 Last Admin: 03/15/20 13:03 Dose: Not Given Documented by: [id number] Infusion: 03/15/20 11:33 Dose: 0 mls/hr Documented by: [id number] Admin: 03/15/20 01:34 Dose: 100 mls/hr Documented by: [id number] Sodium Phosphate 15 mmol/ (Sodium Chloride) 255 mls @ 102 mls/hr IV ONE ONE Stop: 03/15/20 11:29 Last Infusion: 03/15/20 16:39 Dose: 0 mls/hr Documented by: [id number] Admin: 03/15/20 14:02 Dose: 102 mls/hr Documented by: [id number] Promethazine HCl 6.25 mg/ (Sodium Chloride) 50.25 mls @ 201 mls/hr IV NOW STA Stop: 03/15/20 10:27 Last Infusion: 03/15/20 13:01 Dose: 0 mls/hr Documented by: [id number] Admin: 03/15/20 10:52 Dose: 201 mls/hr Documented by: [id number] Lidocaine/Epinephrine (Lidocaine/Epinephrine 1% 20 Ml Vial) Confirm Administered Dose 20 ml .ROUTE .STK-MED ONE Stop: 03/15/20 07:15 Last Admin: 03/15/20 09:37 Dose: 10 ml Documented by: [id number] Metoclopramide HCl (Metoclopramide Hcl Inj 5 Mg/Ml 2 Ml Vial) 5 mg IV ONE ONE Stop: 03/14/20 18:26 Last Admin: 03/14/20 18:40 Dose: 5 mg Documented by: [id number] Metoclopramide HCl (Metoclopramide Hcl Inj 5 Mg/Ml 2 Ml Vial) 5 mg IV ONE ONE Stop: 03/15/20 13:05 Last Admin: 03/15/20 13:12 Dose: 5 mg Documented by: [id number] Ondansetron HCl (Ondansetron Inj 2 Mg/Ml 2 Ml Vial) 4 mg IV NOW STA Stop: 03/14/20 14:17 Last Admin: 03/14/20 14:38 Dose: 4 mg Documented by: [id number] Ondansetron HCl (Ondansetron Inj 2 Mg/Ml 2 Ml Vial) 4 mg IV ONCE PRN PRN Reason: PACU Use Only-Nausea/Vomiting Stop: 03/15/20 16:07 Last Admin: 03/15/20 10:03 Dose: 4 mg Documented by: [id number] Discharge Plan Visit Data Chief Complaint: Vaginal Bleeding ED Provider: Jerrell Patel Discharge Problem: Generalized abdominal pain, Vaginal spotting Patient Disposition: Admitted As Inpatient Discharge Instructions Interventions: ED Discharge Assessment Last Done: 03/14/20 23:39
[2020-03-14] MEDS ORDERED: SODIUM CHLORIDE 0.9% 1000ML 1,000 ML IV SCH (14:30)
[2020-03-14 14:31] LABS: Basophils # (auto) 0.02 K/uL (0-0.2); Basophils % (auto) 0.1 %; Eosinophils # (auto) 0.02 K/uL (0-0.5); Eosinophils % (auto) 0.1 %; Hematocrit (blood only) 37.8 % (37-47); Hemoglobin 12.8 g/dL (12.0-16.0); Immature Granulocytes # (auto) 0.03 K/uL (0.00-0.02); Immature Granulocytes % (auto) 0.2 %; Lymphocytes # (auto) 0.67 K/uL (1.2-3.4); Lymphocytes % (auto) 4.7 %; Mean Corpuscular Hemoglobin 28.3 pg (25-34); Mean Corpuscular Hgb Conc 33.9 g/dL (32-36); Mean Corpuscular Volume 83.6 fL (80-100); Mean Platelet Volume 10.9 fL (7.4-10.4); Monocytes # (auto) 0.83 K/uL (0.11-0.59); Monocytes % (auto) 5.9 %; Neutrophils # (auto) 12.61 K/uL (1.4-6.5); Platelet Count 247 K/uL (130-400); RDW Coefficient of Variation 13.2 % (11.5-14.5); RDW Standard Deviation 39.7 fL (36.4-46.3); Red Blood Count 4.52 M/uL (4.2-5.4); White Blood Count 14.18 K/uL (4.8-10.8)
[2020-03-14 14:44] LABS: INR 1.1 (0.9-1.1); Partial Thromboplastin Ratio 1.1; Partial Thromboplastin Time 30.6 Seconds (21.0-31.0); Prothrombin Time 11.4 Seconds (9.0-12.0)
[2020-03-14 14:51] LABS: Alanine Aminotransferase 12 U/L (12-78); Albumin Level 2.9 gm/dl (3.4-5.0); Aspartate Aminotransferase 8 U/L (15-37); BUN Creatinine Ratio 14.8 (10-20); Blood Urea Nitrogen 10 mg/dl (7-18); Calcium 8.4 mg/dl (8.5-10.1); Carbon Dioxide 26 mmol/L (21-32); Chloride 102 mmol/L (98-107); Est GFR (African American) 130.7; Est GFR (Non-African American) 112.8; Glucose 106 mg/dl (70-99); Potassium 3.8 mmol/L (3.5-5.1); Sodium 134 mmol/L (136-145)
[2020-03-14 14:54] LABS: Albumin Globulin Ratio 0.7 (0.9-2); Alkaline Phosphatase 86 U/L (45-117); Bilirubin,Total 0.5 mg/dl (0.2-1); Globulin 4.3 gm/dl (2.5-4.0); Total Protein 7.2 gm/dl (6.4-8.2)
[2020-03-14] MEDS ORDERED: HYDROmorphone INJ 0.5 MG/0.5 ML SYR IV PRN (16:46)
[2020-03-14 16:53] LABS: Lipase 48 U/L (73-393)
--- NOTE | 2020-03-14 18:04 | Ultrasound Report ---
US OB <= 14 weeks fetus CLINICAL HISTORY: low abd pain, spotting, + preg COMPARISON STUDY: No previous studies for comparison. TECHNIQUE: Transabdominal and transvaginal sonography of the pelvis was performed. FINDINGS: The uterus measures 10.1 x 5 x 5.8 cm. Intrauterine gestational sac is noted. The mean sac diameter is 0.91 cm. This contains a yolk sac as well as a pole with crown-rump length of 0.26 cm which corresponds to an estimated gestational age of 5 weeks and 6 days. cardiac activity is noted with normal heart rate of 115 bpm. Left ovary is sonographically normal. The right ovary conta ins a suspected 2.4 cm corpus luteal cyst. There is also a 2.3 cm right ovarian cyst. Debris is incid entally noted within the bladder. There is trace fluid within the pelvis. IMPRESSION: 1. Intrauterine gestational sac which contains a pole with estimated gestational age of 5 weeks and 6 days. cardiac activity identified. 2. Suspected corpus luteal cyst within the right ovary. ACT 112: Negative or not required by law. Electronically signed by: Kirill Coronel M.D. 03/14/2020 6:03 PM
[2020-03-14] MEDS ORDERED: cefTRIAXone SODIUM 1,000 MG/50 ML BAG IV STA (18:15)
[2020-03-14] MEDS ORDERED: SODIUM CHLORIDE 0.9% 1000ML 1,000 ML IV ONE (18:15)
[2020-03-14] MEDS ORDERED: FAMOTIDINE 20MG IV PUSH 20 MG/5 ML SYR IV STA (18:23)
[2020-03-14] MEDS ORDERED: METOCLOPRAMIDE HCL INJ 5 MG/ML 2 ML VIAL IV ONE (18:25)
--- NOTE | 2020-03-14 22:01 | Emergency Department Note ---
ED Visit Note The patient was taken in signout from Dr. Borden at the change of shift. Please see his note for details. In brief, the patient is a 34 y/o woman who is 6 weeks with 2 day of abdominal pain with negative MRI of abdomen at [facility] yesterday. The patient was pending US to rule out biliary etiology among others to the patient's pain. Labs with unremarkable LFTs with no elevation in bilirubin, alk phos or lipase. Ultrasound completed and commented on sludge in the gallbladder with borderline thickening of the gallbladder wall and trace surrounding fluid with reported sonographic Gentile sign suspicious for cholecystitis. I reevaluated the patient and she continues to have tenderness, more so in the epigastrium. I reviewed her ultrasound findings and plan to discuss with surgery. Already received ceftriaxone earlier. Case was discussed with Dr. Vale, general surgery on-call, who evaluated the patient at the bedside, and will plan to take to the OR in the morning. Dr. Jason, [facility] hospitalist, who was already aware the patient was updated and will admit the patient with surgery following for OR in AM. -- STATRAD Preliminary Findings Only See Final Report For Complete Findings US ABDOMEN: Sludge in the gallbladder. Borderline thickening of the gallbladder wall. Trace surrounding fluid. Sonographic Gentile's sign is reportedly positive. This may represent acute cholecystitis. Small amount of ascites. Pancreas is not visualized due to overlying bowel gas. Liver measures 15.8 cm. No focal lesion. Normal common bile duct measuring 4 mm. Spleen measures 12.9 cm, borderline in size. Visualized portions of the IVC are grossly unremarkable. Aorta is obscured by overlying bowel gas. Visualized kidneys are grossly unremarkable. No hydronephrosis or stone. Radiologist: Jayson Brambila M.D. Study ready at 21:22 and initial results transmitted at 21:28
[2020-03-14] MEDS ORDERED: PROMETHAZINE 25 MG/51 ML BAG IV STA (22:14)
[2020-03-14 22:21] LABS: Influenza A virus by PCR Negative (Neg); Influenza B virus by PCR Negative (Neg); RSV by PCR Negative (Neg); SARS CoV2 RNA(COVID-19) InHosp NEGATIVE (Negative)
--- NOTE | 2020-03-14 23:04 | Surgery Consultation ---
Date of Consultation March 14, 2020 Assessment & Plan (1) Acute cholecystitis: Patient is in her first trimester she has acute cholecystitis and I recommend that we proceed with laparoscopic cholecystectomy and plan to do it in the morning She was given antibiotic coverage 1 g Rocephin in the ER History of Present Illness Reason for Consultation: Acute cholecystitis History of Present Illness This pleasant 34-year-old female who at the present time appears very uncomfortable after having had multiple doses of Dilaudid throughout the day presented to the emergency room earlier today with abdominal pain some vaginal spotting that has subsided She stated the abdominal pain started about 2 days ago and was seen in [place] in ER 2 times when she went ultrasound of the pelvis that revealed 6 weeks gestational she underwent an MRI the abdomen which was pretty much unremarkable for acute appendicitis or other pathology and she continued to have nausea and occasional vomiting and decided to come here to this ER where she was reevaluated and underwent an ultrasound of the gallbladder which showed thickened gallbladder wall sludge and some last cholecystic fluid positive Gentile's therefore we were asked to see her Her past history is remarkable for having had a she is 3 para 2 She occasionally suffers constipation and develops lower abdominal discomfort that she has now since she has not moved her bowels in a couple days She has an allergy to penicillin Allergies Allergy/AdvReac Type Severity Reaction Status Date / Time adhesive tape Allergy Mild blisters Unverified 03/14/20 15:01 on skin Penicillins Allergy Verified 03/14/20 15:00 Home Medications Medication Instructions Recorded Confirmed Type acetaminophen-codeine 1 tab PO ONCE 03/14/20 03/14/20 History [Tylenol-Codeine #2] cetirizine [Zyrtec] 10 mg PO QAM 03/14/20 03/14/20 History 21-iron fu-folic acid 1 tab PO QAM 03/14/20 03/14/20 History [ Complete] Patient History Medical History (Updated 03/14/20 @ 23:48 by Alisha Jason DO) Chronic idiopathic constipation Eosinophilic esophagitis Ovarian cyst Surgical History H/O cervical biopsy H/O section H/O dilation and curettage History of oral surgery Family History (Updated 03/14/20 @ 23:29 by Alisha Jason DO) Father Hypertension Other Gallbladder disease Social History (Updated 10/04/18 @ 16:33 by Dina Bartlett) Smoking Status: Former smoker Second Hand Exposure: No; Hx Alcohol Use: No Hx Substance Use: No Preferred Language: Faroese Communication Ability: Effective Building 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 Pt has 2 cats. Feels Safe at Home: Yes and No Is there a partner from a previous relationship who is making you feel unsafe now?: No Assistive Devices: None Physical Exam Physical Exam: At this time Blaire has a washcloth on her head appears uncomfortable even though she has been medicated recently Sclerae nonicteric Her abdomen is slightly distended and stated she has lower abdominal guarding and some tenderness but she is exquisitely tender in her right upper quadrant Results & Data ([facility]) Vital Signs (Past 12 Hours) Vital Signs Temp Pulse Pulse Resp BP BP Pulse Ox 03/14/20 22:30 119 H 17 117/81 03/14/20 22:20 120 H 19 98 03/14/20 22:01 116 H 19 97 03/14/20 22:00 115 H 20 112/70 98 03/14/20 21:40 115 H 19 97 03/14/20 21:30 120 H 17 117/76 97 03/14/20 21:26 122 H 21 100 03/14/20 21:25 114 H 16 114/79 97 03/14/20 21:22 117 H 21 03/14/20 20:40 124 H 19 96 03/14/20 20:30 124 H 21 122/82 96 03/14/20 20:26 55 H 03/14/20 20:01 111 H 20 100 03/14/20 20:00 121 H 21 111/68 99 03/14/20 19:40 112 H 23 100 03/14/20 19:31 114 H 24 100 03/14/20 19:30 112 H 20 105/77 100 03/14/20 19:20 102 H 20 100 03/14/20 19:01 100 H 18 99 03/14/20 19:00 105 H 20 112/71 99 03/14/20 18:40 108 H 15 97 03/14/20 18:30 107 H 31 H 102/77 99 03/14/20 18:20 105 H 20 98 03/14/20 18:10 115 H 23 99 03/14/20 18:09 110 H 17 105/71 100 03/14/20 18:00 101 H 18 03/14/20 17:45 107 H 13 03/14/20 16:40 108 H 24 100 03/14/20 16:30 93 H 20 109/77 100 03/14/20 16:22 96 03/14/20 16:20 102 H 17 100 03/14/20 16:01 91 H 20 100 03/14/20 16:00 97 H 18 107/74 100 03/14/20 15:40 106 H 22 100 03/14/20 15:30 104 H 17 104/73 100 03/14/20 15:20 104 H 20 99 03/14/20 15:01 97 H 19 96 03/14/20 15:00 100 H 24 104/74 97 03/14/20 14:58 99 H 19 95 03/14/20 14:41 113 H 20 120/75 96 03/14/20 14:39 101 H 18 120/75 95 03/14/20 13:55 36.7 C 127 H 20 116/81 100 a white count is elevated at 14,000 with a left shift ultrasound of the gallbladder discussed with the physician in ER that stated the above findings PG Care Time/CCT Total # of Minutes Spent Total Time Spent with Patient: Total time spent is greater than 50% in coordination of care (as documented) at patient's floor/unit and/or counseling patient: Coding Level of Care Code 59176 Inpt Consult Level 3 Diagnoses Acute cholecystitis K81.0
--- NOTE | 2020-03-14 23:50 | History & Physical Report ---
Date of Service March 14, 2020 Assessment & Plan (1) Acute cholecystitis: 34yo female at 5 weeks + 6 days by US performed 03/14/20 presenting with 3 days of progressive abdominal pain. Patient has diffuse pain as well as focal RUQ discomfort and nausea. Suspect diffuse pain may be from chronic constipation, possibly gas. RUQUS is suspicious for acute cholecystitis. She is afebrile, tachycardic, otherwise HD stable. She is in pain but non-toxic in appearance. She has a leukocytosis with WBC=14.18, elevated neutrophils. LFTs, Lipase and Lactate are WNL. -Admit to medical floor -Keep NPO except medications -Pain control with Dilaudid 0.5mg IV q 2 hours PRN. -Zofran PRN nausea -Simethicone PRN gas pain -Patient received Ceftriaxone 1gm at 18:39 - she will be given additional antibiotics prior to OR tomorrow -General Surgery assistance appreciated. Plan for OR tomorrow. Patient will be kept NPO. SARS-CoV-2 PCR as performed in ER is NEGATIVE Present on Admission?: Yes (2) Generalized abdominal pain: As above. Suspect constipation and gas contributing to abdominal discomfort -Dilaudid as above, Zofran and Simethicone -Colace PRN -Dulcolax PA PRN Present on Admission?: Yes (3) Chronic idiopathic constipation: Patient reports having a BM 1-2 times weekly at baseline. She has been constipated since 03/11/20. She took a suppository with some relief. -Colace 100mg po BID PRN -Dulcolax PA PRN -IVF and electrolyte repletion Present on Admission?: Yes (4) : Patient with confirmed intrauterine . US performed today estimates 5 weeks + 6 days. -Avoid teratogenic agents -Continue PNVs F/E/N - NSS at 100mL/hr x 2 liters, monitor electrolytes and replete as needed, NPO for now Ppx - SCDs to bilateral LEs, Pepcid 20mg IV daily Code - Full per discussion with patient Dispo -Admit to medical Present on Admission?: Yes History of Present Illness Chief Complaint: abdominal pain Primary Care Provider: Dipak Villa Muna Villa is a 34yo female at 5 weeks + 6 days with confirmed intrauterine presenting with abdominal pain. Patient reports developing sharp lower abdominal pain and pressure on 03/11/20 as well as pressure with urination. She was seen at [facility] with this complaint on 03/12/20 and was treated with Zofran, Morphine and Oxycodone at that time. She had an MRI of the abdomen which revealed normal liver with scattered small cysts. Normal gallbladder, pancreas, spleen, adrenal glands and kidneys. Normal appendix. Presence of gestational sac within the uterus consistent with early . She had an US which noted 5w Od at that time. Her symptoms continued and she was seen at [facility] again on 03/14/20. Patient continues to have diffuse abdominal pain. Her pain is now more diffuse, with spasm and cramping, radiation into her back. She has had nausea with 4 episodes of non-bloody/non-bilious emesis - last emesis was 03/12/20. She has chronic constipation and reports being very constipated. She took a suppository and had some diarrhea. Poor appetite with decreased PO intake with last full meal being on 03/11/20. She denies fevers/chills/chest pain/palpitations/cough/SOB. No additional complaints at this time. On arrival to the ER she was found to be afebrile, sinus tachycardia at 114 bpm ER Course: Zofran 4mg IV, NSS x 2L, Dilaudid 0.5mg IV x 2, Ceftriaxone 1gm IV (18:39), Pepcid 20mg IV, Dilaudid 0.5mg IV, Phenergan 25mg IV Allergies Allergy/AdvReac Type Severity Reaction Status Date / Time adhesive tape Allergy Mild blisters Unverified 03/14/20 15:01 on skin Penicillins Allergy Verified 03/14/20 15:00 Home Medications Medication Instructions Recorded Confirmed Type acetaminophen-codeine 1 tab PO ONCE 03/14/20 03/14/20 History [Tylenol-Codeine #2] cetirizine [Zyrtec] 10 mg PO QAM 03/14/20 03/14/20 History 21-iron fu-folic acid 1 tab PO QAM 03/14/20 03/14/20 History [ Complete] Past Med/Surg History Medical History (Updated 03/14/20 @ 23:48 by Alisha Jason DO) Chronic idiopathic constipation Eosinophilic esophagitis Ovarian cyst Surgical History H/O cervical biopsy H/O section H/O dilation and curettage History of oral surgery Family History (Updated 03/14/20 @ 23:29 by Alisha Jason DO) Father Hypertension Other Gallbladder disease Social History (Updated 10/04/18 @ 16:33 by Dina Bartlett) Smoking Status: Never smoker Second Hand Exposure: No; Hx Alcohol Use: No Hx Substance Use: No Preferred Language: Rwandan Communication Ability: Effective Level Designer Required: No Beliefs That Will Affect Care: None marital status: Single Current Living Situation: Significant Other Current Living Situation Comment: Pt lives with significant other and 14 year old son. Pt has 2 cats. Feels Safe at Home: Yes Assistive Devices: None Review of Systems Review of Systems: All systems reviewed & are unremarkable except as noted in HPI & below Physical Exam Physical Exam: General: patient resting in bed, in mild distress secondary to discomfort, skin clammy Skin: warm, dry, intact, no rashes or lesions, no jaundice or icterus HEENT: NC/AT, PERRL, EOMI, anicteric sclera, conjunctiva without injection, external ear normal to inspection and nontender, nares patent, moist mucus membranes, dentition intact, no oropharyngeal lesions, neck supple, trachea midline, no LAD, no thyromegaly, no JVD Heart: +S1/S2, regular, tachycardic, no m/r/g Lungs: equal air entry bilaterally, no rales/rhonchi/wheezes Abd: +BS diminished, soft, mildly distended, diffusely tender most in RUQ with voluntary guarding, no masses/organomegaly/ascites. Patient experienced waves of discomfort during our exam during which she had to stop and breathe through the pain. During these episodes no bloating, spasm or abdominal tension noted. Ext: warm, 2+ pulses in UE/LE bilaterally, no clubbing/cyanosis or edema Neuro: nonfocal, patient AA&O x 4, speech intact, no facial droop, moving all extremities on command with equal strength 5/5 Results & Data Results & Data ([facility]) Vital Signs (Past 12 Hours) Vital Signs Temp Pulse Pulse Resp BP BP Pulse Ox 03/14/20 22:30 119 H 17 117/81 03/14/20 22:20 120 H 19 98 03/14/20 22:01 116 H 19 97 03/14/20 22:00 115 H 20 112/70 98 03/14/20 21:40 115 H 19 97 03/14/20 21:30 120 H 17 117/76 97 03/14/20 21:26 122 H 21 100 03/14/20 21:25 114 H 16 114/79 97 03/14/20 21:22 117 H 21 03/14/20 20:40 124 H 19 96 03/14/20 20:30 124 H 21 122/82 96 03/14/20 20:26 55 H 03/14/20 20:01 111 H 20 100 03/14/20 20:00 121 H 21 111/68 99 03/14/20 19:40 112 H 23 100 03/14/20 19:31 114 H 24 100 03/14/20 19:30 112 H 20 105/77 100 03/14/20 19:20 102 H 20 100 03/14/20 19:01 100 H 18 99 03/14/20 19:00 105 H 20 112/71 99 03/14/20 18:40 108 H 15 97 03/14/20 18:30 107 H 31 H 102/77 99 03/14/20 18:20 105 H 20 98 03/14/20 18:10 115 H 23 99 03/14/20 18:09 110 H 17 105/71 100 03/14/20 18:00 101 H 18 03/14/20 17:45 107 H 13 03/14/20 16:40 108 H 24 100 03/14/20 16:30 93 H 20 109/77 100 03/14/20 16:22 96 03/14/20 16:20 102 H 17 100 03/14/20 16:01 91 H 20 100 03/14/20 16:00 97 H 18 107/74 100 03/14/20 15:40 106 H 22 100 03/14/20 15:30 104 H 17 104/73 100 03/14/20 15:20 104 H 20 99 03/14/20 15:01 97 H 19 96 03/14/20 15:00 100 H 24 104/74 97 03/14/20 14:58 99 H 19 95 03/14/20 14:41 113 H 20 120/75 96 03/14/20 14:39 101 H 18 120/75 95 03/14/20 13:55 36.7 C 127 H 20 116/81 100 Laboratory Results Lab Results 03/14/20 03/14/20 03/14/20 Range/Units 14:23 14:23 14:23 WBC 14.18 H (4.8-10.8) K/uL RBC 4.52 (4.2-5.4) M/uL Hgb 12.8 (12.0-16.0) g/dL Hct 37.8 (37-47) % MCV 83.6 (80-100) fL MCH 28.3 (25-34) pg MCHC 33.9 (32-36) g/dL RDW Std Deviation 39.7 (36.4-46.3) fL RDW Coeff of Rustam 13.2 (11.5-14.5) % Plt Count 247 (130-400) K/uL MPV 10.9 H (7.4-10.4) fL Immature Gran % (Auto) 0.2 % Neut % (Auto) 89.0 % Lymph % (Auto) 4.7 % Appling % (Auto) 5.9 % Eos % (Auto) 0.1 % Baso % (Auto) 0.1 % Neut # (Auto) 12.61 H (1.4-6.5) K/uL Lymph # (Auto) 0.67 L (1.2-3.4) K/uL Appling # (Auto) 0.83 H (0.11-0.59) K/uL Eos # (Auto) 0.02 (0-0.5) K/uL Baso # (Auto) 0.02 (0-0.2) K/uL Immature Gran # (Auto) 0.03 H (0.00-0.02) K/uL PT 11.4 (9.0-12.0) Seconds INR 1.1 (0.9-1.1) APTT 30.6 (21.0-31.0) Seconds PTT Ratio 1.1 Sodium (136-145) mmol/L Potassium (3.5-5.1) mmol/L Chloride (98-107) mmol/L Carbon Dioxide (21-32) mmol/L Anion Gap (3-11) BUN (7-18) mg/dl Creatinine (0.6-1.2) mg/dl Est Cr Clr Drug Dosing Est GFR ( Amer) Est GFR (Non-Af Amer) BUN/Creatinine Ratio (10-20) Glucose (70-99) mg/dl Lactate (0.4-2.0) mmol/L Calcium (8.5-10.1) mg/dl Total Bilirubin (0.2-1) mg/dl AST (15-37) U/L ALT (12-78) U/L Alkaline Phosphatase (45-117) U/L Total Protein (6.4-8.2) gm/dl Albumin (3.4-5.0) gm/dl Globulin (2.5-4.0) gm/dl Albumin/Globulin Ratio (0.9-2) Lipase (73-393) U/L HCG, Quant mIU/ml COVID-19 Eval Order SARS-CoV-2 (PCR) (Negative) Influenza Type A (PCR) (Neg) Influenza Type B (PCR) (Neg) RSV (RT-PCR) (Neg) Blood Type A Positive 03/14/20 03/14/20 03/14/20 Range/Units 14:23 14:23 21:25 WBC (4.8-10.8) K/uL RBC (4.2-5.4) M/uL Hgb (12.0-16.0) g/dL Hct (37-47) % MCV (80-100) fL MCH (25-34) pg MCHC (32-36) g/dL RDW Std Deviation (36.4-46.3) fL RDW Coeff of Rustam (11.5-14.5) % Plt Count (130-400) K/uL MPV (7.4-10.4) fL Immature Gran % (Auto) % Neut % (Auto) % Lymph % (Auto) % Appling % (Auto) % Eos % (Auto) % Baso % (Auto) % Neut # (Auto) (1.4-6.5) K/uL Lymph # (Auto) (1.2-3.4) K/uL Appling # (Auto) (0.11-0.59) K/uL Eos # (Auto) (0-0.5) K/uL Baso # (Auto) (0-0.2) K/uL Immature Gran # (Auto) (0.00-0.02) K/uL PT (9.0-12.0) Seconds INR (0.9-1.1) APTT (21.0-31.0) Seconds PTT Ratio Sodium 134 L (136-145) mmol/L Potassium 3.8 (3.5-5.1) mmol/L Chloride 102 (98-107) mmol/L Carbon Dioxide 26 (21-32) mmol/L Anion Gap 6.0 (3-11) BUN 10 (7-18) mg/dl Creatinine 0.69 (0.6-1.2) mg/dl Est Cr Clr Drug Dosing Not Reportable Est GFR ( Amer) 130.7 Est GFR (Non-Af Amer) 112.8 BUN/Creatinine Ratio 14.8 (10-20) Glucose 106 H (70-99) mg/dl Lactate (0.4-2.0) mmol/L Calcium 8.4 L (8.5-10.1) mg/dl Total Bilirubin 0.5 (0.2-1) mg/dl AST 8 L (15-37) U/L ALT 12 (12-78) U/L Alkaline Phosphatase 86 (45-117) U/L Total Protein 7.2 (6.4-8.2) gm/dl Albumin 2.9 L (3.4-5.0) gm/dl Globulin 4.3 H (2.5-4.0) gm/dl Albumin/Globulin Ratio 0.7 L (0.9-2) Lipase 48 L (73-393) U/L HCG, Quant 5036 mIU/ml COVID-19 Eval Order CovFluRsv at [facility] SARS-CoV-2 (PCR) (Negative) Influenza Type A (PCR) (Neg) Influenza Type B (PCR) (Neg) RSV (RT-PCR) (Neg) Blood Type 03/14/20 03/14/20 Range/Units 21:25 21:30 WBC (4.8-10.8) K/uL RBC (4.2-5.4) M/uL Hgb (12.0-16.0) g/dL Hct (37-47) % MCV (80-100) fL MCH (25-34) pg MCHC (32-36) g/dL RDW Std Deviation (36.4-46.3) fL RDW Coeff of Rustam (11.5-14.5) % Plt Count (130-400) K/uL MPV (7.4-10.4) fL Immature Gran % (Auto) % Neut % (Auto) % Lymph % (Auto) % Appling % (Auto) % Eos % (Auto) % Baso % (Auto) % Neut # (Auto) (1.4-6.5) K/uL Lymph # (Auto) (1.2-3.4) K/uL Appling # (Auto) (0.11-0.59) K/uL Eos # (Auto) (0-0.5) K/uL Baso # (Auto) (0-0.2) K/uL Immature Gran # (Auto) (0.00-0.02) K/uL PT (9.0-12.0) Seconds INR (0.9-1.1) APTT (21.0-31.0) Seconds PTT Ratio Sodium (136-145) mmol/L Potassium (3.5-5.1) mmol/L Chloride (98-107) mmol/L Carbon Dioxide (21-32) mmol/L Anion Gap (3-11) BUN (7-18) mg/dl Creatinine (0.6-1.2) mg/dl Est Cr Clr Drug Dosing Est GFR ( Amer) Est GFR (Non-Af Amer) BUN/Creatinine Ratio (10-20) Glucose (70-99) mg/dl Lactate 0.8 (0.4-2.0) mmol/L Calcium (8.5-10.1) mg/dl Total Bilirubin (0.2-1) mg/dl AST (15-37) U/L ALT (12-78) U/L Alkaline Phosphatase (45-117) U/L Total Protein (6.4-8.2) gm/dl Albumin (3.4-5.0) gm/dl Globulin (2.5-4.0) gm/dl Albumin/Globulin Ratio (0.9-2) Lipase (73-393) U/L HCG, Quant mIU/ml COVID-19 Eval Order SARS-CoV-2 (PCR) NEGATIVE (Negative) Influenza Type A (PCR) Negative (Neg) Influenza Type B (PCR) Negative (Neg) RSV (RT-PCR) Negative (Neg) Blood Type Diagnostic Findings US OB <= 14 weeks fetus CLINICAL HISTORY: low abd pain, spotting, + preg COMPARISON STUDY: No previous studies for comparison. TECHNIQUE: Transabdominal and transvaginal sonography of the pelvis was performed. FINDINGS: The uterus measures 10.1 x 5 x 5.8 cm. Intrauterine gestational sac is noted. The mean sac diameter is 0.91 cm. This contains a yolk sac as well as a pole with crown-rump length of 0.26 cm which corresponds to an estimated gestational age of 5 weeks and 6 days. cardiac activity is noted with normal heart rate of 115 bpm. Left ovary is sonographically normal. The right ovary contains a suspected 2.4 cm corpus luteal cyst. There is also a 2.3 cm right ovarian cyst. Debris is incidentally noted within the bladder. There is trace fluid within the pelvis. IMPRESSION: 1. Intrauterine gestational sac which contains a pole with estimated gestational age of 5 weeks and 6 days. cardiac activity identified. 2. Suspected corpus luteal cyst within the right ovary. ACT 112: Negative or not required by law. Electronically signed by: Kirill Coronel M.D. 03/14/2020 6:03 PM Dictated: 03/14/201800Transcribed: 03/14/201800 US Abdomen: per STAT-rad - Sludge in the gallbladder. Borderline thickening of the gallbladder wall. Trace surrounding fluid. Sonographic Gentile's sign is reportedly positive. This may represent acute cholecystitis. Small amount of ascites. Pancreas is not visualized due to overlying bowel gas. Liver measures 15.8 cm. No focal lesions. Normal CBD measuring 4mm. Spleen measures 12.9 cm, borderline in size. Visualized portions of the IVC are grossly unremarkable. Aorta is obscured by overlying bowel gas. Visualized kidneys are grossly unremarkable. No hydronephrosis or stone. PG Care Time/CCT Total # of Minutes Spent Total Time Spent with Patient: Total time spent is greater than 50% in coordination of care (as documented) at patient's floor/unit and/or counseling patient: Coding Level of Care Code 23627 Initial Inpt Care Lvl 3 Diagnoses Acute cholecystitis K81.0 Generalized abdominal pain R10.84 Chronic idiopathic constipation K59.04 Z3A.01 Weeks of gestation: less than 8 weeks (1) Weeks of gestation: less than 8 weeks Qualified Code(s): Z3A.01 - Less than 8 weeks gestation of
[2020-03-15] MEDS ORDERED: SIMETHICONE 80 MG CHEW PO PRN (00:38)
[2020-03-15] MEDS ORDERED: bisacodyL 10 MG SUPP PR PRN (00:38)
[2020-03-15] MEDS ORDERED: DOCUSATE SODIUM 100 MG CAP PO PRN (00:38)
[2020-03-15] MEDS ORDERED: ONDANSETRON INJ 2 MG/ML 2 ML VIAL IV PRN ×2 (00:38→08:06)
[2020-03-15] MEDS ORDERED: HYDROmorphone INJ 0.5 MG/0.5 ML SYR ONE (00:42)
[2020-03-15 01:03] LABS: Magnesium 2.8 mg/dl (1.8-2.4); Phosphorus 1.7 mg/dl (2.5-4.9)
[2020-03-15] MEDS: SODIUM CHLORIDE 0.9% 1000ML 1,000 ML IV SCH ×2 (01:34→13:03)
[2020-03-15] MEDS: HYDROmorphone INJ 0.5 MG/0.5 ML SYR IV PRN ×2 (02:43→04:56)
[2020-03-15 04:54] LABS: Appearance Urine Cloudy (Clear); Blood Urine Trace (Negative); Color Urine Dark Yellow; Epithelial Cell Urine Auto >30 /lpf (0-5); Glucose Urine UA Negative (Negative); Ketones Urine 4+ (Negative); Leukocyte Esterase Urine Negative (Negative); Nitrite Urine Negative (Negative); Protein Urine 3+ (Negative); Specific Gravity Urine 1.033 (1.000-1.030); Urobilinogen Urine Negative (Negative); pH Urine 5.5 (4.5-7.5)
[2020-03-15 04:57] LABS: Bilirubin Urine 1+ (Negative)
[2020-03-15 05:11] LABS: Bacteria Urine Automated 2+ (Negative); Granular Casts Urine >30 /lpf (0); RBC Urine Automated 0-4 /hpf (0-4)
[2020-03-15 05:12] LABS: Mucus Urine Present (None Prsent)
[2020-03-15 06:25] LABS: Basophils # (auto) 0.01 K/uL (0-0.2); Basophils % (auto) 0.1 %; Eosinophils # (auto) 0.08 K/uL (0-0.5); Eosinophils % (auto) 0.8 %; Hematocrit (blood only) 35.6 % (37-47); Hemoglobin 11.8 g/dL (12.0-16.0); Immature Granulocytes # (auto) 0.02 K/uL (0.00-0.02); Immature Granulocytes % (auto) 0.2 %; Lymphocytes # (auto) 0.84 K/uL (1.2-3.4); Lymphocytes % (auto) 7.9 %; Mean Corpuscular Hemoglobin 27.8 pg (25-34); Mean Corpuscular Hgb Conc 33.1 g/dL (32-36); Mean Platelet Volume 10.5 fL (7.4-10.4); Monocytes # (auto) 0.69 K/uL (0.11-0.59); Monocytes % (auto) 6.5 %; Neutrophils # (auto) 8.94 K/uL (1.4-6.5); Neutrophils % (auto) 84.5 %; Platelet Count 231 K/uL (130-400); RDW Coefficient of Variation 13.3 % (11.5-14.5); RDW Standard Deviation 40.7 fL (36.4-46.3); Red Blood Count 4.24 M/uL (4.2-5.4); White Blood Count 10.58 K/uL (4.8-10.8)
[2020-03-15] MEDS ORDERED: GLYCOPYRROLATE 0.2 MG/ML VIAL ONE (07:02)
[2020-03-15] MEDS ORDERED: DEXAMETHASONE SOD INJ 4 MG/ML VIAL ONE (07:02)
[2020-03-15] MEDS ORDERED: fentaNYL citrate 100 MCG/2 ML VIAL ONE ×2 (07:02→08:24)
[2020-03-15] MEDS ORDERED: MIDAZOLAM HCL 1 MG/ML 2ML VIAL ONE (07:02)
[2020-03-15] MEDS ORDERED: ROCURONIUM BROMIDE 10 MG/ML 5 ML VIAL IV ONE (07:02)
[2020-03-15] MEDS ORDERED: NEOSTIGMINE METHYLSULFATE 5 MG/5 ML SYR ONE (07:02)
[2020-03-15] MEDS ORDERED: LIDOCAINE HCL 2% 2 ML VIAL/AMP(20MG/ML) INFIL ONE (07:02)
[2020-03-15] MEDS ORDERED: PROPOFOL IV EMULSION 10 MG/ML 20 ML VIAL IV ONE (07:02)
[2020-03-15] MEDS ORDERED: ONDANSETRON INJ 2 MG/ML 2 ML VIAL ONE (07:02)
[2020-03-15 07:03] LABS: Albumin Level 2.1 gm/dl (3.4-5.0); BUN Creatinine Ratio 14.2 (10-20); Bilirubin Direct 0.1 mg/dl (0-0.2); Creatinine Clr Calc Pharmacy 143.6 ml/min; Est GFR (African American) 141.7; Est GFR (Non-African American) 122.3; Potassium 3.8 mmol/L (3.5-5.1)
[2020-03-15 07:11] LABS: Bilirubin,Total 0.4 mg/dl (0.2-1); Total Protein 5.6 gm/dl (6.4-8.2)
--- NOTE | 2020-03-15 07:13 | Ultrasound Report ---
US abdomen complete CLINICAL HISTORY: Upper abdominal pain. . COMPARISON STUDY: No previous studies for comparison. FINDINGS: The pancreas is obscured. There is tumefactive sludge within the gallbladder. The technologist reports a positive sonographic M urphy sign. The common bile duct measures 4 mm. There is minimal intrahepatic biliary ductal prominence. The right kidney measures 11.2 cm in length. The left kidney measures 12.4 cm in length. The spleen measures 12.9 cm in length. The IVC was patent. The abdominal aorta was nonvisualized. There is trace free fluid within Morison's pouch. There is fluid surrounding the gallbladder. There i s trace fluid surrounding the spleen. Multiple fluid-filled bowel loops are visualized. IMPRESSION: 1. Nonvisualization of the pancreas 2. Tumefactive sludge within the gallbladder. Pericholecystic fluid. Technologist reported positive s onographic Gentile sign. 3. Small amount of free fluid surrounding the gallbladder, within Morison's pouch, and surrounding th e spleen. 4. Multiple nonspecific fluid-filled bowel loops. ACT 112: Negative or not required by law. Electronically signed by: Corky Altamirano M.D. 03/15/2020 7:12 AM
[2020-03-15] MEDS ORDERED: LIDOCAINE/EPINEPHRINE 1% 20 ML VIAL ONE (07:14)
--- NOTE | 2020-03-15 07:18 | Surgery Progress Note ---
Date of Service March 15, 2020 Assessment & Plan (1) Acute cholecystitis: Patient is in her first trimester she has acute cholecystitis and I recommend that we proceed with laparoscopic cholecystectomy and plan to do it in the morning She was given antibiotic coverage 1 g Rocephin in the ER March 15, 2020 At this time we will proceed with laparoscopic cholecystectomy risk and complication of the surgery was explained to the patient including bleeding infection converting to an open procedure and she would like to proceed accordingly We will call her boyfriend after surgery at her request Permit has been signed Admission and Anticipated Discharge Date Admission Date: March 14, 2020 Subjective Feels better this morning but still has some pain right side of her belly gallbladder area No nausea or emesis Physical Exam Physical Exam: Appears more comfortable than last seen last night The abdomen is relatively soft except still some tenderness in the right upper quadrant Results & Data ([facility]) Vital Signs (Past 12 Hours) Vital Signs Temp Pulse Pulse Resp BP BP Pulse Ox 03/15/20 00:12 37.1 C 114 H 20 124/82 99 03/14/20 23:39 108 H 20 112/79 95 03/14/20 23:30 108 H 20 112/79 03/14/20 23:20 110 H 20 03/14/20 23:01 117 H 16 03/14/20 23:00 117 H 22 117/81 03/14/20 22:40 122 H 27 H 03/14/20 22:31 115 H 20 03/14/20 22:30 119 H 17 117/81 03/14/20 22:20 120 H 19 98 03/14/20 22:01 116 H 19 97 03/14/20 22:00 115 H 20 112/70 98 03/14/20 21:40 115 H 19 97 03/14/20 21:30 120 H 17 117/76 97 03/14/20 21:26 122 H 21 100 03/14/20 21:25 114 H 16 114/79 97 03/14/20 21:22 117 H 21 03/14/20 20:40 124 H 19 96 03/14/20 20:30 124 H 21 122/82 96 03/14/20 20:26 55 H 03/14/20 20:01 111 H 20 100 03/14/20 20:00 121 H 21 111/68 99 01/14/21 19:40 112 H 23 100 03/14/20 19:31 114 H 24 100 03/14/20 19:30 112 H 20 105/77 100 03/14/20 19:20 102 H 20 100 PG Care Time/CCT Total # of Minutes Spent Total Time Spent with Patient: Total time spent is greater than 50% in coordination of care (as documented) at patient's floor/unit and/or counseling patient: Coding Level of Care Code 51939 Subseq Hosp Care Lvl 2 Diagnoses Acute cholecystitis K81.0
--- NOTE | 2020-03-15 07:40 | Anesthesiology Consultation ---
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 History Surgery Operation Date: 03/15/20 08:50 Proposed Procedures p Laparoscopic Cholecystectomy - Yang Vale MD Height/Weight Height: 5 ft 4 in Weight: 74.3 kg Allergies Allergy/AdvReac Type Severity Reaction Status Date / Time adhesive tape Allergy Mild blisters Unverified 03/14/20 15:01 on skin Penicillins Allergy Verified 03/14/20 15:00 Medications Home Medications Medication Instructions Recorded Confirmed Last Taken acetaminophen-codeine 1 tab PO ONCE 03/14/20 03/14/20 03/14/20 [Tylenol-Codeine #2] cetirizine [Zyrtec] 10 mg PO QAM 03/14/20 03/14/20 03/13/20 21-iron fu-folic acid 1 tab PO QAM 03/14/20 03/14/20 03/13/20 [ Complete] Active Medications Generic Name Dose Route Start Last Admin Trade Name Freq PRN Reason Stop Dose Admin Hydromorphone HCl 0.5 mg 03/15/20 00:38 03/15/20 04:56 Hydromorphone Inj 0.5 Mg/0.5 Ml Syr IV 03/29/20 00:37 0.5 mg Q2H PRN Administration Pain Sodium Chloride 1,000 mls @ 100 mls/hr 03/15/20 01:00 03/15/20 01:34 Nss 1000ml IV 03/15/20 20:59 100 mls/hr .Q10H EMILY Administration NPO Date Last Intake of Fluids: 03/15/20 Time Last Intake of Fluids: 00:30 Date Last Intake of Solids: 03/15/20 Time Last Intake of Solids: 00:30 Past Medical History Medical History Chronic idiopathic constipation Eosinophilic esophagitis Ovarian cyst Past Family History Family History Father Hypertension Other Gallbladder disease Past Surgical History Surgical History H/O cervical biopsy H/O section H/O dilation and curettage History of oral surgery Social History Smoking Status: Former smoker tobacco type: e-cigarettes Smoking End Date: former vaper Hx Alcohol Use: No Hx Substance Use: No substance use type: does not use Physical Exam Vital Signs Last Vital Signs Temp 99.1 F 03/15/20 07:31 Pulse 98 H 03/15/20 07:31 Resp 18 03/15/20 07:31 BP 106/75 03/15/20 07:31 Pulse Ox 97 03/15/20 07:31 Testing Laboratory Results 03/15/20 06:11 03/15/20 06:11 PT 11.4 Seconds (9.0-12.0) 03/14/20 14: INR 1.1 (0.9-1.1) 03/14/20 14: APTT 30.6 Seconds (21.0-31.0) 03/14/20 14: HCG, Quant 5036 mIU/ml 03/14/20 14:23 Urine Color Dark Yellow 03/15/20 Unknown Urine Appearance Cloudy (Clear) A 03/15/20 Unknown Urine pH 5.5 (4.5-7.5) 03/15/20 Unknown Ur Specific [place] 1.033 (1.000-1.030) H 03/15/20 Unknown Urine Protein 3+ (Negative) H 03/15/20 Unknown Urine Glucose (UA) Negative (Negative) 03/15/20 Unknown Urine Ketones 4+ (Negative) H 03/15/20 Unknown Urine Nitrite Negative (Negative) 03/15/20 Unknown Ur Leukocyte Esterase Negative (Negative) 03/15/20 Unknown Urine WBC (Auto) 1-5 /hpf (0-5) 03/15/20 Unknown Urine RBC (Auto) 0-4 /hpf (0-4) 03/15/20 Unknown U Hyaline Cast (Auto) 1-5 /lpf (0-5) 03/15/20 Unknown U Epithel Cells (Auto) >30 /lpf (0-5) H 03/15/20 Unknown Urine Bacteria (Auto) 2+ (Negative) H 03/15/20 Unknown Blood Type A Positive 03/14/20 14:23 03/14/20 14:23 HCG, Quant 5036 Laboratory Tests 03/14/20 21:25 SARS-CoV-2 (PCR) NEGATIVE
[2020-03-15] MEDS ORDERED: ATROPINE SULFATE 0.1 MG/ML 10ML SYR IV PRN (08:06)
[2020-03-15] MEDS ORDERED: SODIUM PHOSPHATE 3 MMOL/1 ML INFUSION IV STA (08:56)
[2020-03-15] MEDS ORDERED: SODIUM PHOSPHATE 15 MMOL in SODIUM CHLORIDE 0.9% 250 ML IV ONE (09:00)
--- NOTE | 2020-03-15 09:35 | Post Operative Brief Note ---
PG Immediate Post Op with CF Date of Surgery March 15, 2020 Pre & Post Diagnosis Operation Date: 03/15/20 08:50 Pre-Op Diagnosis: ACUTE CHOLECYSTITIS Post-Op Diagnosis: Acute Cholecystitis , Acute Appendicitis I identified the patient and participated in the time-out.: Yes Procedure Operation Date: 03/15/20 08:50 Actual Procedures p Laparoscopic Cholecystectomy and Laparoscopic Appendectomy(Not Applicable) - Yang Vale MD Surgeon Yang Vale MD Team Member Alyx HAMILTON Estimated Blood Loss 15 Findings Consistent with Post-Op Diagnosis Specimens Specimen Description: Permanent Specimen A: Gallbladder and contents B: Appendix Microbiology #1 Abdominal Fluid Routine culture and sentivity, Anerobic & Aerobic, Gram Stain Drains Geraldo-Velasquez Drain
--- NOTE | 2020-03-15 09:48 | Hospitalist Progress Note ---
Date of Service March 15, 2020 Assessment & Plan (1) Appendicitis with perforation: 34yo female at 5 weeks + 6 days by US performed 03/14/20 presenting with 3 days of progressive abdominal pain. Patient has diffuse pain as well as focal RUQ discomfort and nausea. Suspect diffuse pain may be from chronic constipation, possibly gas. RUQUS is suspicious for acute cholecystitis. She is afebrile, tachycardic, otherwise HD stable on admission. She is in pain but non-toxic in appearance. She has a leukocytosis with WBC=14.18, elevated neutrophils. LFTs, Lipase and Lactate are WNL. General surgery consulted POD#0 s/p lap chace AND appendectomy for perforation Received Ceftriaxone IV pre-operatively - continue Will see about PCN allergy Flagyl not safe -- she is not currently covered for anaerobics, but will be covered for gram negative WBC trending down, continues to be afebrile Diet post operatively -- advance as tolerated Zofran prn Added reglan prn for better control of nausea Pain control with Tylenol #3, diluadid prn IVF continued OB consulted for pt 6wks with bleeding reported -- appreciate input. Transvaginal US pending (2) Acute cholecystitis: in conjuntion with ruptured appendix as above -- see operative report (3) Generalized abdominal pain: As above. Suspect constipation and gas contributing to abdominal discomfort See above Patient states adequate pain control but has more nausea post-operatively -Colace PRN -Dulcolax MS PRN (4) Chronic idiopathic constipation: Patient reports having a BM 1-2 times weekly at baseline. She has been constipated since 03/11/20. She took a suppository with some relief. -Colace 100mg po BID PRN -Dulcolax MS PRN -IVF and electrolyte repletion (5) : Patient with confirmed intrauterine . US performed today estimates 5 weeks + 6 days. -Avoid teratogenic agents -Continue PNVs Ppx - SCDs to bilateral LEs, Pepcid 20mg IV daily Code - Full per discussion with patient Dispo -continued inpatient stay Admission and Anticipated Discharge Date Admission Date: March 14, 2020 Subjective Patient evaluated this afternoon following surgery. Patient brought in with abd pain and thought initially constipation and given suppository with some relief. She states she has not passed gas or moved bowels since arriving back to room. Got up to use bathroom and states she did have some light blood noted, then darker but was unable to discern if there were clots present. She is 6 weeks and had been scheduled follow up later this month for an ultrasound but that it was rescheduled. was planned but patient feels possible miscarriage happening. Nausea is moreso the issues compared to pain, although she is extremely painful with movement and palpation. Did just receive something but would like something else if possible/safe. Discussed there are risks with pain medications. Patient aware and would like to continue these. She states she would like to continue with as long as it will be a normal . Will have OB evaluate while inpatient. Urine output slightly low and patient placed on IVF. Eating clear diet. No emesis. No fever, chills (although did have them and that's what brought her into the ER), chest pain, shortness of breath. Worried about when she will be discharged as she is hopeful not today and to be "a burden" on her boyfriend and 2 children at home. Discussed necrotic and ruptured appendix and will continue inpatient stay at this time. Review of Systems Review of Systems: All systems reviewed & are unremarkable except as noted in HPI & below Physical Exam Constitutional: well developed, well nourished and cooperative; no acute distress and + uncomfortable Eyes: + anicteric sclerae and PERRL ENMT: mmm Neck: normal visual inspection and trachea midline Respiratory: normal respiratory effort, lungs clear to auscultation Cardiovascular: RRR, no murmur, no edema Gastrointestinal (Abdomen): Inspection/Auscultation: + hypoactive bowel sounds Percussion/Palpation: + abdomen tender (diffusely, R sided); no guarding and abdomen not rigid surgical incisions c/d/i with steri strips PREETI drain with serosanguineous drainage Musculoskeletal: no cyanosis or clubbing, extremities motor strength 5/5 Skin: warm, dry Neurologic: PERRL, EOMI, accommodation nl, no face palsy, no dysarthria Psychiatric: Orientation: alert and oriented x 3 Affect: + anxious affect and + tearful affect (about being discharged home too early) Lymphatic: no cervical or axillary lymphadenopathy Results & Data Results & Data ([facility]) Vital Signs (Past 12 Hours) Vital Signs Temp Pulse Pulse Pulse Pulse Resp BP 01/15/21 07:31 37.3 C 98 H 18 03/15/20 07:13 37.2 C 92 H 18 03/15/20 00:12 37.1 C 114 H 20 03/14/20 23:39 108 H 20 112/79 03/14/20 23:30 108 H 20 112/79 03/14/20 23:20 110 H 20 03/14/20 23:01 117 H 16 03/14/20 23:00 117 H 22 117/81 03/14/20 22:40 122 H 27 H 03/14/20 22:31 115 H 20 03/14/20 22:30 119 H 17 117/81 03/14/20 22:20 120 H 19 03/14/20 22:01 116 H 19 03/14/20 22:00 115 H 20 112/70 BP Pulse Ox 03/15/20 07:31 106/75 97 03/15/20 07:13 108/74 97 03/15/20 00:12 124/82 99 03/14/20 23:39 95 03/14/20 23:30 03/14/20 23:20 03/14/20 23:01 03/14/20 23:00 03/14/20 22:40 03/14/20 22:31 03/14/20 22:30 03/14/20 22:20 98 03/14/20 22:01 97 03/14/20 22:00 98 Laboratory Results 03/15/20 03/15/20 03/15/20 Range/Units Unknown 06:11 06:11 WBC 10.58 (4.8-10.8) K/uL RBC 4.24 (4.2-5.4) M/uL Hgb 11.8 L (12.0-16.0) g/dL Hct 35.6 L (37-47) % MCV 84.0 (80-100) fL MCH 27.8 (25-34) pg MCHC 33.1 (32-36) g/dL RDW Std Deviation 40.7 (36.4-46.3) fL RDW Coeff of Rustam 13.3 (11.5-14.5) % Plt Count 231 (130-400) K/uL MPV 10.5 H (7.4-10.4) fL Immature Gran % (Auto) 0.2 % Neut % (Auto) 84.5 % Lymph % (Auto) 7.9 % [place] % (Auto) 6.5 % Eos % (Auto) 0.8 % Baso % (Auto) 0.1 % Neut # (Auto) 8.94 H (1.4-6.5) K/uL Lymph # (Auto) 0.84 L (1.2-3.4) K/uL [place] # (Auto) 0.69 H (0.11-0.59) K/uL Eos # (Auto) 0.08 (0-0.5) K/uL Baso # (Auto) 0.01 (0-0.2) K/uL Immature Gran # (Auto) 0.02 (0.00-0.02) K/uL PT (9.0-12.0) Seconds INR (0.9-1.1) APTT (21.0-31.0) Seconds PTT Ratio Sodium 139 (136-145) mmol/L Potassium 3.8 (3.5-5.1) mmol/L Chloride 109 H (98-107) mmol/L Carbon Dioxide 22 (21-32) mmol/L Anion Gap 8.0 (3-11) BUN 8 (7-18) mg/dl Creatinine 0.54 L (0.6-1.2) mg/dl Est Cr Clr Drug Dosing 143.6 Est GFR ( Amer) 141.7 Est GFR (Non-Af Amer) 122.3 BUN/Creatinine Ratio 14.2 (10-20) Glucose 89 (70-99) mg/dl Lactate (0.4-2.0) mmol/L Calcium 8.0 L (8.5-10.1) mg/dl Phosphorus (2.5-4.9) mg/dl Magnesium (1.8-2.4) mg/dl Total Bilirubin 0.4 (0.2-1) mg/dl Direct Bilirubin 0.1 (0-0.2) mg/dl AST 5 L (15-37) U/L ALT 8 L (12-78) U/L Alkaline Phosphatase 63 (45-117) U/L Total Protein 5.6 L D (6.4-8.2) gm/dl Albumin 2.1 L (3.4-5.0) gm/dl Globulin (2.5-4.0) gm/dl Albumin/Globulin Ratio (0.9-2) Lipase (73-393) U/L HCG, Quant mIU/ml Urine Color Dark Yellow Urine Appearance Cloudy A (Clear) Urine pH 5.5 (4.5-7.5) Ur Specific [place] 1.033 H (1.000-1.030) Urine Protein 3+ H (Negative) Urine Glucose (UA) Negative (Negative) Urine Ketones 4+ H (Negative) Urine Blood Trace H (Negative) Urine Nitrite Negative (Negative) Urine Bilirubin 1+ H (Negative) Urine Urobilinogen Negative (Negative) Ur Leukocyte Esterase Negative (Negative) Urine WBC (Auto) 1-5 (0-5) /hpf Urine RBC (Auto) 0-4 (0-4) /hpf U Hyaline Cast (Auto) 1-5 (0-5) /lpf U Epithel Cells (Auto) >30 H (0-5) /lpf Urine Bacteria (Auto) 2+ H (Negative) Ur Renal Epithelial Cell Not Reportable Granular Casts >30 H (0) /lpf Urine Mucus Present A (None Prsent) Urine Yeast Not Reportable COVID-19 Eval Order SARS-CoV-2 (PCR) (Negative) Influenza Type A (PCR) (Neg) Influenza Type B (PCR) (Neg) RSV (RT-PCR) (Neg) Blood Type 03/14/20 03/14/20 03/14/20 Range/Units 21:30 21:25 21:25 WBC (4.8-10.8) K/uL RBC (4.2-5.4) M/uL Hgb (12.0-16.0) g/dL Hct (37-47) % MCV (80-100) fL MCH (25-34) pg MCHC (32-36) g/dL RDW Std Deviation (36.4-46.3) fL RDW Coeff of Rustam (11.5-14.5) % Plt Count (130-400) K/uL MPV (7.4-10.4) fL Immature Gran % (Auto) % Neut % (Auto) % Lymph % (Auto) % [place] % (Auto) % Eos % (Auto) % Baso % (Auto) % Neut # (Auto) (1.4-6.5) K/uL Lymph # (Auto) (1.2-3.4) K/uL [place] # (Auto) (0.11-0.59) K/uL Eos # (Auto) (0-0.5) K/uL Baso # (Auto) (0-0.2) K/uL Immature Gran # (Auto) (0.00-0.02) K/uL PT (9.0-12.0) Seconds INR (0.9-1.1) APTT (21.0-31.0) Seconds PTT Ratio Sodium (136-145) mmol/L Potassium (3.5-5.1) mmol/L Chloride (98-107) mmol/L Carbon Dioxide (21-32) mmol/L Anion Gap (3-11) BUN (7-18) mg/dl Creatinine (0.6-1.2) mg/dl Est Cr Clr Drug Dosing Est GFR ( Amer) Est GFR (Non-Af Amer) BUN/Creatinine Ratio (10-20) Glucose (70-99) mg/dl Lactate 0.8 (0.4-2.0) mmol/L Calcium (8.5-10.1) mg/dl Phosphorus (2.5-4.9) mg/dl Magnesium (1.8-2.4) mg/dl Total Bilirubin (0.2-1) mg/dl Direct Bilirubin (0-0.2) mg/dl AST (15-37) U/L ALT (12-78) U/L Alkaline Phosphatase (45-117) U/L Total Protein (6.4-8.2) gm/dl Albumin (3.4-5.0) gm/dl Globulin (2.5-4.0) gm/dl Albumin/Globulin Ratio (0.9-2) Lipase (73-393) U/L HCG, Quant mIU/ml Urine Color Urine Appearance (Clear) Urine pH (4.5-7.5) Ur Specific [place] (1.000-1.030) Urine Protein (Negative) Urine Glucose (UA) (Negative) Urine Ketones (Negative) Urine Blood (Negative) Urine Nitrite (Negative) Urine Bilirubin (Negative) Urine Urobilinogen (Negative) Ur Leukocyte Esterase (Negative) Urine WBC (Auto) (0-5) /hpf Urine RBC (Auto) (0-4) /hpf U Hyaline Cast (Auto) (0-5) /lpf U Epithel Cells (Auto) (0-5) /lpf Urine Bacteria (Auto) (Negative) Ur Renal Epithelial Cell Granular Casts (0) /lpf Urine Mucus (None Prsent) Urine Yeast COVID-19 Eval Order CovFluRsv at [facility] SARS-CoV-2 (PCR) NEGATIVE (Negative) Influenza Type A (PCR) Negative (Neg) Influenza Type B (PCR) Negative (Neg) RSV (RT-PCR) Negative (Neg) Blood Type 03/14/20 03/14/20 03/14/20 Range/Units 14:23 14:23 14:23 WBC (4.8-10.8) K/uL RBC (4.2-5.4) M/uL Hgb (12.0-16.0) g/dL Hct (37-47) % MCV (80-100) fL MCH (25-34) pg MCHC (32-36) g/dL RDW Std Deviation (36.4-46.3) fL RDW Coeff of Rustam (11.5-14.5) % Plt Count (130-400) K/uL MPV (7.4-10.4) fL Immature Gran % (Auto) % Neut % (Auto) % Lymph % (Auto) % [place] % (Auto) % Eos % (Auto) % Baso % (Auto) % Neut # (Auto) (1.4-6.5) K/uL Lymph # (Auto) (1.2-3.4) K/uL [place] # (Auto) (0.11-0.59) K/uL Eos # (Auto) (0-0.5) K/uL Baso # (Auto) (0-0.2) K/uL Immature Gran # (Auto) (0.00-0.02) K/uL PT 11.4 (9.0-12.0) Seconds INR 1.1 (0.9-1.1) APTT 30.6 (21.0-31.0) Seconds PTT Ratio 1.1 Sodium 134 L (136-145) mmol/L Potassium 3.8 (3.5-5.1) mmol/L Chloride 102 (98-107) mmol/L Carbon Dioxide 26 (21-32) mmol/L Anion Gap 6.0 (3-11) BUN 10 (7-18) mg/dl Creatinine 0.69 (0.6-1.2) mg/dl Est Cr Clr Drug Dosing Not Reportable Est GFR ( Amer) 130.7 Est GFR (Non-Af Amer) 112.8 BUN/Creatinine Ratio 14.8 (10-20) Glucose 106 H (70-99) mg/dl Lactate (0.4-2.0) mmol/L Calcium 8.4 L (8.5-10.1) mg/dl Phosphorus 1.7 L (2.5-4.9) mg/dl Magnesium 2.8 H (1.8-2.4) mg/dl Total Bilirubin 0.5 (0.2-1) mg/dl Direct Bilirubin (0-0.2) mg/dl AST 8 L (15-37) U/L ALT 12 (12-78) U/L Alkaline Phosphatase 86 (45-117) U/L Total Protein 7.2 (6.4-8.2) gm/dl Albumin 2.9 L (3.4-5.0) gm/dl Globulin 4.3 H (2.5-4.0) gm/dl Albumin/Globulin Ratio 0.7 L (0.9-2) Lipase 48 L (73-393) U/L HCG, Quant 5036 mIU/ml Urine Color Urine Appearance (Clear) Urine pH (4.5-7.5) Ur Specific [place] (1.000-1.030) Urine Protein (Negative) Urine Glucose (UA) (Negative) Urine Ketones (Negative) Urine Blood (Negative) Urine Nitrite (Negative) Urine Bilirubin (Negative) Urine Urobilinogen (Negative) Ur Leukocyte Esterase (Negative) Urine WBC (Auto) (0-5) /hpf Urine RBC (Auto) (0-4) /hpf U Hyaline Cast (Auto) (0-5) /lpf U Epithel Cells (Auto) (0-5) /lpf Urine Bacteria (Auto) (Negative) Ur Renal Epithelial Cell Granular Casts (0) /lpf Urine Mucus (None Prsent) Urine Yeast COVID-19 Eval Order SARS-CoV-2 (PCR) (Negative) Influenza Type A (PCR) (Neg) Influenza Type B (PCR) (Neg) RSV (RT-PCR) (Neg) Blood Type 03/14/20 03/14/20 Range/Units 14:23 14:23 WBC 14.18 H (4.8-10.8) K/uL RBC 4.52 (4.2-5.4) M/uL Hgb 12.8 (12.0-16.0) g/dL Hct 37.8 (37-47) % MCV 83.6 (80-100) fL MCH 28.3 (25-34) pg MCHC 33.9 (32-36) g/dL RDW Std Deviation 39.7 (36.4-46.3) fL RDW Coeff of Rustam 13.2 (11.5-14.5) % Plt Count 247 (130-400) K/uL MPV 10.9 H (7.4-10.4) fL Immature Gran % (Auto) 0.2 % Neut % (Auto) 89.0 % Lymph % (Auto) 4.7 % [place] % (Auto) 5.9 % Eos % (Auto) 0.1 % Baso % (Auto) 0.1 % Neut # (Auto) 12.61 H (1.4-6.5) K/uL Lymph # (Auto) 0.67 L (1.2-3.4) K/uL [place] # (Auto) 0.83 H (0.11-0.59) K/uL Eos # (Auto) 0.02 (0-0.5) K/uL Baso # (Auto) 0.02 (0-0.2) K/uL Immature Gran # (Auto) 0.03 H (0.00-0.02) K/uL PT (9.0-12.0) Seconds INR (0.9-1.1) APTT (21.0-31.0) Seconds PTT Ratio Sodium (136-145) mmol/L Potassium (3.5-5.1) mmol/L Chloride (98-107) mmol/L Carbon Dioxide (21-32) mmol/L Anion Gap (3-11) BUN (7-18) mg/dl Creatinine (0.6-1.2) mg/dl Est Cr Clr Drug Dosing Est GFR ( Amer) Est GFR (Non-Af Amer) BUN/Creatinine Ratio (10-20) Glucose (70-99) mg/dl Lactate (0.4-2.0) mmol/L Calcium (8.5-10.1) mg/dl Phosphorus (2.5-4.9) mg/dl Magnesium (1.8-2.4) mg/dl Total Bilirubin (0.2-1) mg/dl Direct Bilirubin (0-0.2) mg/dl AST (15-37) U/L ALT (12-78) U/L Alkaline Phosphatase (45-117) U/L Total Protein (6.4-8.2) gm/dl Albumin (3.4-5.0) gm/dl Globulin (2.5-4.0) gm/dl Albumin/Globulin Ratio (0.9-2) Lipase (73-393) U/L HCG, Quant mIU/ml Urine Color Urine Appearance (Clear) Urine pH (4.5-7.5) Ur Specific [place] (1.000-1.030) Urine Protein (Negative) Urine Glucose (UA) (Negative) Urine Ketones (Negative) Urine Blood (Negative) Urine Nitrite (Negative) Urine Bilirubin (Negative) Urine Urobilinogen (Negative) Ur Leukocyte Esterase (Negative) Urine WBC (Auto) (0-5) /hpf Urine RBC (Auto) (0-4) /hpf U Hyaline Cast (Auto) (0-5) /lpf U Epithel Cells (Auto) (0-5) /lpf Urine Bacteria (Auto) (Negative) Ur Renal Epithelial Cell Granular Casts (0) /lpf Urine Mucus (None Prsent) Urine Yeast COVID-19 Eval Order SARS-CoV-2 (PCR) (Negative) Influenza Type A (PCR) (Neg) Influenza Type B (PCR) (Neg) RSV (RT-PCR) (Neg) Blood Type A Positive PG Care Time/CCT Total # of Minutes Spent Total Time Spent with Patient: Total time spent is greater than 50% in coordination of care (as documented) at patient's floor/unit and/or counseling patient: Coding Level of Care Code 01301 Subseq Hosp Care Lvl 2 Diagnoses Appendicitis with perforation K35.32 Acute cholecystitis K81.0 Generalized abdominal pain R10.84 Chronic idiopathic constipation K59.04 Z3A.01 Weeks of gestation: less than 8 weeks (1) Weeks of gestation: less than 8 weeks Qualified Code(s): Z3A.01 - Less than 8 weeks gestation of
--- NOTE | 2020-03-15 09:58 | Operative Report ---
PG Post Operative Report Pre & Post Diagnosis Operation Date: 03/15/20 08:50 Pre-Op Diagnosis: ACUTE CHOLECYSTITIS Post-Op Diagnosis: Acute Cholecystitis , Acute Appendicitis I identified the patient and participated in the time-out.: Yes Procedure Operation Date: 03/15/20 08:50 Actual Procedures p Laparoscopic Cholecystectomy and Laparoscopic Appendectomy(Not Applicable) - Yang Vale MD The patient was brought into the operating theater general endotracheal anesthesia the abdomen was prepped byline solution properly draped timeout was had patient was identified patient has received antibiotics last evening this point we made a small incision supraumbilically sufficient enough to place a 5 mm trocar after we replaced the Veress needle with some CO2 point of interest bacteroids identified the camera followed and what we saw was that she had fluid around the liver appeared little bit bilious which was more than what I would expect just the preop evaluation that she had we then placed a 5 mm trocar in the epigastric area with preemptive local analgesic and 2 5 mm subcostal core with preemptive analgesic we suctioned out the fluid in the trap cultures it we then went down towards the pelvic area where we identified some fibrinous exudate small bowel distention proximal to the ileocecal valve which was a attached to the anterior abdominal wall down the pelvis she had have a previous C-sections were thought that may been related to that but with blunt dissection this came out pretty easily and my attention turned to the right lower quadrant after we irrigated the pelvis area of pretty significantly the patient was placed in left lateral position we worked her way by elevated the cecum the appendix was stuck down in most retroperitoneal area the fimbria was attached to it we move that out of the way the uterus was expected slightly enlarged with her we worked her way down to the tip of the appendix and the tip of the appendix was appear to be a localized perforation with some fibrinous exudate we at this point elevated at change start umbilical port to a 12 mm and then using the RICK stapler after we had created a window between the appendix and the cecum we were able to take the appendix off in that area the mesoappendix was similarly taken off and divided with another blue stapler. The area was checked hemostasis appear satisfactory we irrigated copiously the abdomen and pelvic area of note this was a surprise finding acute appendicitis with possible tip rupture since the patient had been worked up at [facility] in [place] with an MRI yesterday that showed a normal appendix and no other intra- abdominal pathology this point her attention was turned to the gallbladder area which was placed under traction by elevating the fundus up and towards the right shoulder some adhesions to the neck of the gallbladder were taken out by blunt dissection we then created a window between the cystic artery and cystic duct the cystic duct was of normal size we took it off just proximal to the common bile duct by clipped approximately twice distally 1 proximally and dividing it cystic artery small we divided and clipped it twice that seemed to have another posterior branch we similarly divided gallbladder was removed in antegrade fashion using electrocautery gallbladder fossa was checked hemostasis appear satisfactory gallbladder was then placed in an Endopouch and taken out intact through the epigastric port subhepatic suprahepatic area was then suctioned out copiously appear satisfactory I elected to drain the pelvic area by placing a Panad drain in the right upper quadrant going down towards right gutter and pelvic area attaching skin edges 2-0 silk we had pretty much irrigated the whole abdomen the most of the fluid was concentrated when we would in her right gutter and pelvic area and the fibrinous exudate was localized to the small bowel proximal to the ileocecal valve to the anterior abdominal wall and some fibrinous exudate towards the right gutter area the ventral trochars removed after we checked each 1 for bleeding and last the umbilical trocar fascial stitch 0 Vicryl x2 for the umbilical port 4-0 Monocryl subcuticular Steri-Strips applied procedure was tolerated well by the patient was taken recovery in good condition estimated blood loss 10 cc addendum the fluid was sent for cultures and sensitivity addendum Sis Francis physician public services assistant was present throughout the case and helped the retraction exposure and wound closure Surgeon Yang Vale MD Simonizer Alyx HAMILTON Estimated Blood Loss 15 Findings Consistent with Post-Op Diagnosis Specimens gallbladder , appendix Description of Procedure merda I attest to the content of the Intraoperative Record and any orders documented therein. Any exceptions are noted below.
[2020-03-15] MEDS: fentaNYL citrate 100 MCG/2 ML VIAL IV PRN ×4 (10:04→10:30)
[2020-03-15] MEDS ORDERED: PROMETHAZINE HCL 6.25 MG in SODIUM CHLORIDE 0.9% 50 ML IV STA (10:13)
--- NOTE | 2020-03-15 11:07 | Anesthesiology Progress Note ---
Date of Service March 15, 2020 Anesthesia Post Procedure Vital Signs Vital Signs: Temp Pulse Pulse Pulse Pulse Resp BP 03/15/20 11:00 36.7 C 91 H 18 03/15/20 10:50 36.7 C 99 H 19 03/15/20 10:40 36.7 C 107 H 21 03/15/20 10:30 36.7 C 93 H 18 03/15/20 10:20 94 H 22 03/15/20 10:10 97 H 23 03/15/20 10:00 115 H 27 H 03/15/20 09:51 36.6 C 109 H 20 03/15/20 07:31 37.3 C 98 H 18 03/15/20 07:13 37.2 C 92 H 18 03/15/20 00:12 37.1 C 114 H 20 03/14/20 23:39 108 H 20 112/79 03/14/20 23:30 108 H 20 112/79 03/14/20 23:20 110 H 20 03/14/20 23:01 117 H 16 03/14/20 23:00 117 H 22 117/81 03/14/20 22:40 122 H 27 H 03/14/20 22:31 115 H 20 03/14/20 22:30 119 H 17 117/81 03/14/20 22:20 120 H 19 03/14/20 22:01 116 H 19 03/14/20 22:00 115 H 20 112/70 03/14/20 21:40 115 H 19 03/14/20 21:30 120 H 17 117/76 03/14/20 21:26 122 H 21 03/14/20 21:25 114 H 16 114/79 03/14/20 21:22 117 H 21 03/14/20 20:40 124 H 19 03/14/20 20:30 124 H 21 122/82 03/14/20 20:26 55 H 03/14/20 20:01 111 H 20 03/14/20 20:00 121 H 21 111/68 03/14/20 19:40 112 H 23 03/14/20 19:31 114 H 24 03/14/20 19:30 112 H 20 105/77 03/14/20 19:20 102 H 20 03/14/20 19:01 100 H 18 03/14/20 19:00 105 H 20 112/71 03/14/20 18:40 108 H 15 03/14/20 18:30 107 H 31 H 102/77 03/14/20 18:20 105 H 20 03/14/20 18:10 115 H 23 03/14/20 18:09 110 H 17 105/71 03/14/20 18:00 101 H 18 03/14/20 17:45 107 H 13 03/14/20 16:40 108 H 24 03/14/20 16:30 93 H 20 109/77 03/14/20 16:22 03/14/20 16:20 102 H 17 03/14/20 16:01 91 H 20 03/14/20 16:00 97 H 18 107/74 03/14/20 15:40 106 H 22 03/14/20 15:30 104 H 17 104/73 03/14/20 15:20 104 H 20 03/14/20 15:01 97 H 19 03/14/20 15:00 100 H 24 104/74 03/14/20 14:58 99 H 19 03/14/20 14:41 113 H 20 03/14/20 14:39 101 H 18 120/75 03/14/20 13:55 36.7 C 127 H 20 116/81 BP Pulse Ox 03/15/20 11:00 126/91 96 03/15/20 10:50 121/93 96 03/15/20 10:40 122/95 99 03/15/20 10:30 126/87 96 03/15/20 10:20 130/91 96 03/15/20 10:10 130/89 95 03/15/20 10:00 134/97 99 03/15/20 09:51 140/111 H 100 03/15/20 07:31 106/75 97 03/15/20 07:13 108/74 97 03/15/20 00:12 124/82 99 03/14/20 23:39 95 03/14/20 23:30 03/14/20 23:20 03/14/20 23:01 03/14/20 23:00 03/14/20 22:40 03/14/20 22:31 03/14/20 22:30 03/14/20 22:20 98 03/14/20 22:01 97 03/14/20 22:00 98 03/14/20 21:40 97 03/14/20 21:30 97 03/14/20 21:26 100 03/14/20 21:25 97 03/14/20 21:22 03/14/20 20:40 96 03/14/20 20:30 96 03/14/20 20:26 03/14/20 20:01 100 03/14/20 20:00 99 03/14/20 19:40 100 03/14/20 19:31 100 03/14/20 19:30 100 03/14/20 19:20 100 03/14/20 19:01 99 03/14/20 19:00 99 03/14/20 18:40 97 03/14/20 18:30 99 03/14/20 18:20 98 03/14/20 18:10 99 03/14/20 18:09 100 03/14/20 18:00 03/14/20 17:45 03/14/20 16:40 100 03/14/20 16:30 100 03/14/20 16:22 96 03/14/20 16:20 100 03/14/20 16:01 100 03/14/20 16:00 100 03/14/20 15:40 100 03/14/20 15:30 100 03/14/20 15:20 99 03/14/20 15:01 96 03/14/20 15:00 97 03/14/20 14:58 95 03/14/20 14:41 120/75 96 03/14/20 14:39 95 03/14/20 13:55 100 Pain Intensity Abdomen: Pain Intensity: 2 Transfer of Care Handoff Completed per policy Notes Mental Status: alert / awake / arousable Patient Amnestic to Procedure: Yes Nausea / Vomiting: adequately controlled Pain: adequately controlled Airway Patency, RR, SpO2: stable & adequate BP & HR: stable & adequate Hydration State: stable & adequate Anesthetic Complications: no major complications apparent
[2020-03-15] MEDS: FAMOTIDINE 20 MG in SYRINGE 3 ML IV SCH (11:33)
[2020-03-15] MEDS: PRENATAL VITAMIN 1 TAB PO SCH (11:33)
[2020-03-15] MEDS: ACETAMINOPHEN W/CODEINE #3 1 TAB PO PRN ×3 (11:59→23:14)
[2020-03-15] MEDS ORDERED: METOCLOPRAMIDE HCL INJ 5 MG/ML 2 ML VIAL IV PRN (13:04)
[2020-03-15] MEDS ORDERED: METOCLOPRAMIDE HCL INJ 5 MG/ML 2 ML VIAL IV ONE (13:04)
[2020-03-15] MEDS: SODIUM CHLORIDE 0.9% 500 ML IV SCH ×2 (13:08→19:10)
--- NOTE | 2020-03-15 15:16 | OB/GYN Consultation ---
Date of Consultation March 15, 2020 Assessment & Plan (1) : Patient is relatively immediate postop but I was able to speak with her she is having some slight vaginal bleeding which can be normal also it can be a sign of miscarriage there was a documented viable fetus prior to the surgery I would recommend an ultrasound in the morning just to ensure there is a viable fetus. We discussed the possibility of miscarriage. We discussed medications that would be safe in certainly she needs her narcotic pain medication and Tylenol would be safe as well I would recommend against using nonsteroidal anti-inflammatories. My understanding from the p atient is she may stay a day or 2 we will certainly be happy to follow along and again an ultrasound tomorrow morning to ensure viability would be recommended The patient is Rh+ and does not need RhoGam for this bleeding heart rate was seen at 5 weeks and 6 days on ultrasound imaging on the History of Present Illness Attending Physician: Fede Rodriguez MD and appendix we have been consulted to follow along with at this time the patient is having a small amount of vaginal bleeding she is not having excessive cramping however she is on narcotics for surgical pain she has had 2 previous healthy pregnancies in the past both c/s deliveries no significant complications Patient is somewhat groggy as she is receiving narcotic medication for her postoperative surgical pain. Allergies Allergy/AdvReac Type Severity Reaction Status Date / Time adhesive tape Allergy Mild blisters Unverified 03/14/20 15:01 on skin Penicillins Allergy Verified 03/14/20 15:00 Home Medications Medication Instructions Recorded Confirmed Type acetaminophen-codeine 1 tab PO ONCE 03/14/20 03/14/20 History [Tylenol-Codeine #2] cetirizine [Zyrtec] 10 mg PO QAM 03/14/20 03/14/20 History 21-iron fu-folic acid 1 tab PO QAM 03/14/20 03/14/20 History [ Complete] Patient History Medical History Chronic idiopathic constipation Eosinophilic esophagitis Ovarian cyst Surgical History H/O cervical biopsy H/O section H/O dilation and curettage History of laparoscopic appendectomy (03/15/20) Laparoscopic Cholecystectomy and Laparoscopic Appendectomy Dr. Vale 03/15/2020 History of oral surgery Hx laparoscopic cholecystectomy (03/15/20) Laparoscopic Cholecystectomy and Laparoscopic Appendectomy Dr. Vale 03/15/2020 Family History Father Hypertension Other Gallbladder disease Social History Smoking Status: Former smoker Second Hand Exposure: No; Hx Alcohol Use: No Hx Substance Use: No Preferred Language: Panamanian Communication Ability: Effective County Agent Required: No Beliefs That Will Affect Care: None marital status: Single Current Living Situation: Significant Other Current Living Situation Comment: Pt lives with significant other and 14 year old son. Pt has 2 cats. Feels Safe at Home: Yes and No Is there a partner from a previous relationship who is making you feel unsafe now?: No Assistive Devices: None Results & Data ([facility]) Vital Signs (Past 12 Hours) Vital Signs Temp Pulse Pulse Pulse Resp BP Pulse Ox 03/15/20 12:00 98.4 F 88 16 128/90 99 03/15/20 11:38 98.1 F 86 16 126/86 99 03/15/20 11:29 98.2 F 88 16 120/84 99 03/15/20 11:00 98.1 F 91 H 18 126/91 96 03/15/20 10:50 98.1 F 99 H 19 121/93 96 03/15/20 10:40 98.1 F 107 H 21 122/95 99 03/15/20 10:30 98.1 F 93 H 18 126/87 96 03/15/20 10:20 94 H 22 130/91 96 03/15/20 10:10 97 H 23 130/89 95 03/15/20 10:00 115 H 27 H 134/97 99 03/15/20 09:51 97.9 F 109 H 20 140/111 H 100 03/15/20 07:31 99.1 F 98 H 18 106/75 97 03/15/20 07:13 99.0 F 92 H 18 108/74 97 PG Care Time/CCT Total # of Minutes Spent Total Time Spent: 35 Total Time Spent with Patient: Total time spent is greater than 50% in coordination of care (as documented) at patient's floor/unit and/or counseling patient: Coding Level of Care Code 96359 Office/Outpt Visit, Est Diagnoses Z3A.01 Weeks of gestation: less than 8 weeks (1) Weeks of gestation: less than 8 weeks Qualified Code(s): Z3A.01 - Less than 8 weeks gestation of
[2020-03-15] MEDS: cefTRIAXone SODIUM 1,000 MG in DEXTROSE 5% 50 ML IV SCH (17:09)
[2020-03-16] MEDS: SODIUM CHLORIDE 0.9% 500 ML IV SCH ×4 (00:27→21:40)
[2020-03-16] MEDS: ACETAMINOPHEN W/CODEINE #3 1 TAB PO PRN ×2 (08:36→23:21)
[2020-03-16] MEDS: PRENATAL VITAMIN 1 TAB PO SCH (08:36)
[2020-03-16] MEDS: FAMOTIDINE 20 MG in SYRINGE 3 ML IV SCH (08:39)
[2020-03-16 08:55] LABS: Albumin Level 2.1 gm/dl (3.4-5.0); BUN Creatinine Ratio 12.3 (10-20); Est GFR (African American) 145.3; Est GFR (Non-African American) 125.4; Potassium 3.5 mmol/L (3.5-5.1)
[2020-03-16 08:58] LABS: Albumin Globulin Ratio 0.6 (0.9-2); Bilirubin,Total 0.3 mg/dl (0.2-1); Globulin 3.3 gm/dl (2.5-4.0); Total Protein 5.4 gm/dl (6.4-8.2)
[2020-03-16 09:07] LABS: Basophils # (auto) 0.01 K/uL (0-0.2); Basophils % (auto) 0.1 %; Eosinophils # (auto) 0.04 K/uL (0-0.5); Eosinophils % (auto) 0.5 %; Hematocrit (blood only) 30.3 % (37-47); Hemoglobin 10.2 g/dL (12.0-16.0); Immature Granulocytes # (auto) 0.02 K/uL (0.00-0.02); Immature Granulocytes % (auto) 0.2 %; Lymphocytes # (auto) 1.09 K/uL (1.2-3.4); Lymphocytes % (auto) 12.9 %; Mean Corpuscular Hemoglobin 27.9 pg (25-34); Mean Corpuscular Hgb Conc 33.7 g/dL (32-36); Mean Platelet Volume 10.8 fL (7.4-10.4); Monocytes # (auto) 0.76 K/uL (0.11-0.59); Neutrophils # (auto) 6.56 K/uL (1.4-6.5); Neutrophils % (auto) 77.3 %; Platelet Count 285 K/uL (130-400); RDW Coefficient of Variation 13.3 % (11.5-14.5); RDW Standard Deviation 40.8 fL (36.4-46.3); Red Blood Count 3.65 M/uL (4.2-5.4); White Blood Count 8.48 K/uL (4.8-10.8)
--- NOTE | 2020-03-16 09:27 | Ultrasound Report ---
US OB transvaginal CLINICAL HISTORY: VIABILITY COMPARISON STUDY: OB ultrasound March 14, 2020. TECHNIQUE: Transabdominal sonography of the uterus was performed to assess for viability. FINDINGS: Intrauterine gestational sac is noted with a mean sac diameter 0.98 cm. This contains a yol k sac that measures 0.32 cm in diameter. pole is noted. Sandoval-rump length is 0.36 cm which hugo esponds to an estimated gestational age of 6 weeks and 0 days. cardiac activity is noted with n ormal heart rate of 124 bpm. IMPRESSION: Single viable intrauterine gestation with estimated gestational age of 6 weeks and 0 day s. Normal heart rate. ACT 112: Negative or not required by law. Electronically signed by: Kirill Coronel M.D. 03/16/2020 9:25 AM
--- NOTE | 2020-03-16 09:33 | Hospitalist Progress Note ---
Date of Service March 16, 2020 Assessment & Plan (1) Appendicitis with perforation: 34yo female at 5 weeks + 6 days by US performed 03/14/20 presenting with 3 days of progressive abdominal pain. Patient has diffuse pain as well as focal RUQ discomfort and nausea. Suspect diffuse pain may be from chronic constipation, possibly gas. RUQUS is suspicious for acute cholecystitis. She is afebrile, tachycardic, otherwise HD stable on admission. She is in pain but non-toxic in appearance. She has a leukocytosis with WBC=14.18, elevated neutrophils. LFTs, Lipase and Lactate are WNL. General surgery consulted POD#1 s/p lap chace AND appendectomy for perforation Received Ceftriaxone IV pre-operatively - continue Will see about PCN allergy -- reported tongue swelling and will avoid PCN Flagyl not safe -- she is not currently covered for anaerobics, but will be covered for gram negative WBC trending down, continues to be afebrile Diet post operatively -- advance as tolerated Zofran prn Added reglan prn for better control of nausea Pain control with Tylenol #3, diluadid prn IVF continued OB consulted for pt 6wks with bleeding reported -- appreciate input. Transvaginal US without abnormality, 6weeks 0 day gestational age (2) Acute cholecystitis: in conjuntion with ruptured appendix as above -- see operative report (3) Generalized abdominal pain: As above. Suspect constipation and gas contributing to abdominal discomfort See above Patient states adequate pain control but has more nausea post-operatively, increased pain today Colace PRN Dulcolax HI PRN (4) Chronic idiopathic constipation: Patient reports having a BM 1-2 times weekly at baseline. She has been constipated since 03/11/20. She took a suppository with some relief and had BM prior to OR on 03/15 -Colace 100mg po BID PRN -Dulcolax HI PRN -IVF and electrolyte repletion Added Miralax, and scheduled dulcolax (5) : Patient with confirmed intrauterine . US performed today estimates 5 weeks + 6 days. -Avoid teratogenic agents -Continue PNVs Hypophosphatemia low at 1.7 -- ordered replacement repeat in AM DVT Prophylaxis SCDs to bilateral LEs Code - Full per discussion with patient Dispo -continued inpatient stay Admission and Anticipated Discharge Date Admission Date: March 14, 2020 Subjective Patient evaluated this morning. Had some increased nausea overnight through the morning and increased pain. PREETI drain emptied approx q2 hour last night and another 3 times this morning. Drainage is clearer. Abdominal pain increased but controlled currently with ordered medications. No fever or chills. Urine with bacteria at outside facility but she states typically with UTi she has burning and then urinates "straight blood" which has not been this current coarse but will monitor her culture. Per history, allergy to penicillin. She believes it was >15 years ago and she had some tongue swelling but not entirely clear. Will avoid PCN. Has not had any issues with the Rocephin as ordered. No chest pain, shortness of breath. Vaginal US this morning with normal 6 week fetus. Not passing gas or had BM yet and will work on more ambulation and stool softeners and will monitor overnight tonight. Had 1 BM prior to going to OR yesterday. Urine is darker, but lightening in color and will continue IVF. Questions/concerns addressed at this time. Review of Systems Review of Systems: All systems reviewed & are unremarkable except as noted in HPI & below Physical Exam Constitutional: WD/WN, vitals as above comfortable; no acute distress Eyes: + anicteric sclerae and PERRL ENMT: mmm -- blue lips but just ate raspberry ice pop Neck: normal visual inspection and trachea midline Respiratory: normal respiratory effort, lungs clear to auscultation Cardiovascular: Rate/Rhythm: regular rhythm and + bradycardic Heart Sounds: no murmur Vessels: no JVD Extremities: no edema Gastrointestinal (Abdomen): Inspection/Auscultation: + hypoactive bowel sounds Percussion/Palpation: + abdomen tender (last-incisional) abdominal incisions present PREETI drain with serous output, approx 75cc no guarding or rebound, soft +BS, but hypoactive Musculoskeletal: no cyanosis or clubbing, extremities motor strength 5/5 Skin: warm, dry Neurologic: PERRL, EOMI, accommodation nl, no face palsy, no dysarthria Psychiatric: Orientation: alert and oriented x 3 Lymphatic: no cervical or axillary lymphadenopathy Results & Data Results & Data ([facility]) Vital Signs (Past 12 Hours) Vital Signs Temp Pulse Resp BP Pulse Ox 03/16/20 07:21 37 C 86 16 120/81 96 03/16/20 02:59 36.9 C 82 16 122/81 98 03/15/20 23:03 36.9 C 65 16 112/74 98 Laboratory Results 03/16/20 03/16/20 03/16/20 Range/Units 07:47 07:47 06:27 WBC 8.48 (4.8-10.8) K/uL RBC 3.65 L (4.2-5.4) M/uL Hgb 10.2 L (12.0-16.0) g/dL Hct 30.3 L (37-47) % MCV 83.0 (80-100) fL MCH 27.9 (25-34) pg MCHC 33.7 (32-36) g/dL RDW Std Deviation 40.8 (36.4-46.3) fL RDW Coeff of Rustam 13.3 (11.5-14.5) % Plt Count 285 (130-400) K/uL MPV 10.8 H (7.4-10.4) fL Immature Gran % (Auto) 0.2 % Neut % (Auto) 77.3 % Lymph % (Auto) 12.9 % Sibley % (Auto) 9.0 % Eos % (Auto) 0.5 % Baso % (Auto) 0.1 % Neut # (Auto) 6.56 H (1.4-6.5) K/uL Lymph # (Auto) 1.09 L (1.2-3.4) K/uL Sibley # (Auto) 0.76 H (0.11-0.59) K/uL Eos # (Auto) 0.04 (0-0.5) K/uL Baso # (Auto) 0.01 (0-0.2) K/uL Immature Gran # (Auto) 0.02 (0.00-0.02) K/uL Sodium 140 (136-145) mmol/L Potassium 3.5 (3.5-5.1) mmol/L Chloride 110 H (98-107) mmol/L Carbon Dioxide 23 (21-32) mmol/L Anion Gap 7.0 (3-11) BUN 6 L (7-18) mg/dl Creatinine 0.50 L (0.6-1.2) mg/dl Est Cr Clr Drug Dosing 155.0 ml/min Est GFR ( Amer) 145.3 Est GFR (Non-Af Amer) 125.4 BUN/Creatinine Ratio 12.3 (10-20) Glucose 91 (70-99) mg/dl Calcium 8.0 L (8.5-10.1) mg/dl Phosphorus 1.7 L (2.5-4.9) mg/dl Total Bilirubin 0.3 (0.2-1) mg/dl AST 21 (15-37) U/L ALT 28 (12-78) U/L Alkaline Phosphatase 64 (45-117) U/L Total Protein 5.4 L (6.4-8.2) gm/dl Albumin 2.1 L (3.4-5.0) gm/dl Globulin 3.3 (2.5-4.0) gm/dl Albumin/Globulin Ratio 0.6 L (0.9-2) PG Care Time/CCT Total # of Minutes Spent Total Time Spent with Patient: Total time spent is greater than 50% in coordination of care (as documented) at patient's floor/unit and/or counseling patient: Coding Level of Care Code 19317 Subseq Hosp Care Lvl 2 Diagnoses Appendicitis with perforation K35.32 Acute cholecystitis K81.0 Generalized abdominal pain R10.84 Chronic idiopathic constipation K59.04 Z3A.01 Weeks of gestation: less than 8 weeks (1) Weeks of gestation: less than 8 weeks Qualified Code(s): Z3A.01 - Less than 8 weeks gestation of
--- NOTE | 2020-03-16 09:55 | Surgery Progress Note ---
Date of Service March 16, 2020 Assessment & Plan (1) Appendicitis, acute: POD#1 laparoscopic appendectomy and cholecystectomy Patient afebrile and WBC 8.4 Having a little more post surgical abdominal pain this AM. Will continue po meds with prn IV medication for breakthrough pain as needed Okay to advance diet as tolerates Continue on IV abx today Keep PREETI drain in place [employer]ST following for her Would keep in-house today for ongoing pain management and diet advancement as above. having some right sided abdominal pain this AM. PREETI serous US looks good keep PREETI not ready for d/c yet. labs reviewed. (2) Acute cholecystitis: Admission and Anticipated Discharge Date Admission Date: March 14, 2020 Subjective Patient states she is feeling a little more abdominal pain this AM, more so on right side of abdomen and around the drain. Physical Exam Physical Exam: awake/alert Gastrointestinal (Abdomen): Inspection/Auscultation: + abdominal surgical drain present (serosangenous (280cc documented over last 12 hours)) Percussion/Palpation: + abdomen tender (expected last-incisional discomfort) and abdomen soft Results & Data ([facility]) Vital Signs (Past 12 Hours) Vital Signs Temp Pulse Resp BP Pulse Ox 03/16/20 07:21 37 C 86 16 120/81 96 03/16/20 02:59 36.9 C 82 16 122/81 98 03/15/20 23:03 36.9 C 65 16 112/74 98 PG Care Time/CCT Total # of Minutes Spent Total Time Spent with Patient: Total time spent is greater than 50% in coordination of care (as documented) at patient's floor/unit and/or counseling patient: Coding Level of Care Code None Diagnoses Appendicitis, acute K35.80 Acute cholecystitis K81.0
[2020-03-16] MEDS: HYDROmorphone INJ 0.5 MG/0.5 ML SYR IV PRN ×4 (09:57→21:40)
[2020-03-16] MEDS ORDERED: bisacodyL 10 MG SUPP PR STA (12:16)
[2020-03-16] MEDS ORDERED: SODIUM PHOSPHATE 3 MMOL/1 ML INFUSION IV STA (12:25)
[2020-03-16] MEDS ORDERED: POLYETHYLENE (MIRALAX) 17 GM PACK PO ONE (12:30)
[2020-03-16] MEDS ORDERED: SODIUM PHOSPHATE 24 MMOL in SODIUM CHLORIDE 0.9% 500 ML IV ONE (13:30)
--- NOTE | 2020-03-16 13:37 | Communication Note ---
Date of Service: March 16, 2020 Visited with patient this afternoon. reviewed results of ultrasound from this am. viable . Patient had some spotting this am, but this has since stopped. No cramping. She is sitting in a chair and has recently been doing some walking. Precautions reviewed. Has appts scheduled for nob appts. US scheduled for 03/21. Will keep to confirm viability. discussed that this whole experience will likely be an all or nothing experience--it will all be fine or will end in loss. Looks ok now. Questions answered.
[2020-03-16] MEDS: cefTRIAXone SODIUM 1,000 MG in DEXTROSE 5% 50 ML IV SCH (17:52)
[2020-03-17] MEDS: HYDROmorphone INJ 0.5 MG/0.5 ML SYR IV PRN (00:01)
[2020-03-17] MEDS: SODIUM CHLORIDE 0.9% 500 ML IV SCH ×2 (03:55→10:25)
[2020-03-17 06:49] LABS: Hematocrit (blood only) 28.9 % (37-47); Hemoglobin 9.7 g/dL (12.0-16.0); Mean Corpuscular Hemoglobin 27.6 pg (25-34); Mean Corpuscular Hgb Conc 33.6 g/dL (32-36); Mean Corpuscular Volume 82.3 fL (80-100); Mean Platelet Volume 10.4 fL (7.4-10.4); Platelet Count 260 K/uL (130-400); RDW Coefficient of Variation 13.5 % (11.5-14.5); RDW Standard Deviation 41.3 fL (36.4-46.3); Red Blood Count 3.51 M/uL (4.2-5.4); White Blood Count 5.98 K/uL (4.8-10.8)
[2020-03-17 07:13] LABS: Albumin Level 1.9 gm/dl (3.4-5.0); BUN Creatinine Ratio 8.6 (10-20); Calcium 7.7 mg/dl (8.5-10.1); Creatinine Clr Calc Pharmacy 158.2 ml/min; Est GFR (African American) 146.3; Est GFR (Non-African American) 126.2; Magnesium 1.8 mg/dl (1.8-2.4)
[2020-03-17 07:34] LABS: Albumin Globulin Ratio 0.7 (0.9-2); Bilirubin,Total 0.2 mg/dl (0.2-1); Globulin 2.9 gm/dl (2.5-4.0); Phosphorus 3.1 mg/dl (2.5-4.9); Total Protein 4.8 gm/dl (6.4-8.2)
[2020-03-17] MEDS: ACETAMINOPHEN W/CODEINE #3 1 TAB PO PRN ×3 (07:37→20:06)
[2020-03-17] MEDS: FAMOTIDINE 20 MG in SYRINGE 3 ML IV SCH (07:37)
[2020-03-17] MEDS: POLYETHYLENE (MIRALAX) 17 GM PACK PO SCH (07:37)
[2020-03-17] MEDS: PRENATAL VITAMIN 1 TAB PO SCH (07:37)
[2020-03-17] MEDS ORDERED: POTASSIUM CHLORIDE CRTAB 20 MEQ TABCR PO STA (08:16)
[2020-03-17 08:40] LABS: Basophils # (auto) 0.04 K/uL (0-0.2); Basophils % (auto) 0.6 %; Eosinophils # (auto) 0.35 K/uL (0-0.5); Eosinophils % (auto) 5.1 %; Hematocrit (blood only) 30.9 % (37-47); Hemoglobin 10.4 g/dL (12.0-16.0); Immature Granulocytes # (auto) 0.04 K/uL (0.00-0.02); Immature Granulocytes % (auto) 0.6 %; Lymphocytes % (auto) 20.4 %; Mean Corpuscular Hgb Conc 33.7 g/dL (32-36); Mean Corpuscular Volume 83.1 fL (80-100); Mean Platelet Volume 10.1 fL (7.4-10.4); Monocytes # (auto) 0.65 K/uL (0.11-0.59); Monocytes % (auto) 9.5 %; Neutrophils # (auto) 4.39 K/uL (1.4-6.5); Neutrophils % (auto) 63.8 %; Platelet Count 264 K/uL (130-400); RDW Coefficient of Variation 13.4 % (11.5-14.5); RDW Standard Deviation 41.2 fL (36.4-46.3); Red Blood Count 3.72 M/uL (4.2-5.4); White Blood Count 6.87 K/uL (4.8-10.8)
--- NOTE | 2020-03-17 08:41 | Gynecologic Progress Note ---
Date of Service March 17, 2020 Assessment & Plan (1) : (2) Vaginal spotting: (3) Appendicitis with perforation: (4) Acute cholecystitis: Admission and Anticipated Discharge Date Admission Date: March 14, 2020 From a standpoint, there has been no change overnight. Bleeding does not seem to be significantly increased, no pelvic cramping. If there is a change in this status, plan repeat ultrasound. Outpatient f/u set up for the patient already for new visits and has us scheduled in the office on 03/21. Med list reviewed and all appropriate in . Please call with changes or questions. Subjective Patient not feeling so well this am. Notes she has cramping that starts at her umbilicus and spreads out from there through her back. She denies pelvic cramping. Notes has some spotting, mostly. Last night when she went to the BR and wiped, there was some blood on the TP. Patient notes she had a very liquid bm last night, getting miralax. Patient was hoping to feel better today. Review of Systems Review of Systems: All systems reviewed & are unremarkable except as noted in HPI & below Physical Exam Constitutional: WD/WN, vitals as above Respiratory: normal respiratory effort, lungs clear to auscultation Cardiovascular: RRR, no murmur, no edema Extremities: no edema Gastrointestinal (Abdomen): soft, nd, appropriately tender. Incisions c/d/i. Drain with serosang fluid. Psychiatric: A+Ox3, euthymic affect Results & Data ([facility]) Vital Signs (Past 12 Hours) Vital Signs Temp Pulse Resp BP Pulse Ox 03/17/20 07:24 36.6 C 77 18 110/74 98 03/16/20 22:57 36.7 C 81 16 120/82 99 PG Care Time/CCT Total # of Minutes Spent Total Time Spent with Patient: Total time spent is greater than 50% in coordination of care (as documented) at patient's floor/unit and/or counseling patient: Coding Level of Care Code 99668 Subseq Hosp Care Lvl 1 Diagnoses Z3A.01 Weeks of gestation: less than 8 weeks Vaginal spotting N93.9 Appendicitis with perforation K35.32 Acute cholecystitis K81.0 (1) Weeks of gestation: less than 8 weeks Qualified Code(s): Z3A.01 - Less than 8 weeks gestation of
[2020-03-17] MEDS ORDERED: POTASSIUM CHLORIDE CRTAB 20 MEQ TABCR PO ONE (08:45)
--- NOTE | 2020-03-17 08:45 | Surgery Progress Note ---
Date of Service March 17, 2020 Assessment & Plan (1) Appendicitis with perforation: US yesterday essentially normal with viable PREETI looks good continue antibiotics will recheck CBC. vitals stable. not ready for d/c Admission and Anticipated Discharge Date Admission Date: March 14, 2020 Subjective pt seen. having some lower abdominal pain/cramping today. slightly worse than yesterday. Physical Exam Physical Exam: alert. mild distress secondary to discomfort. abd: soft. PREETI serous /andrade. +RLQ ttp/suprapubic ttp. Results & Data ([facility]) Vital Signs (Past 12 Hours) Vital Signs Temp Pulse Resp BP Pulse Ox 03/17/20 07:24 36.6 C 77 18 110/74 98 03/16/20 22:57 36.7 C 81 16 120/82 99 PG Care Time/CCT Total # of Minutes Spent Total Time Spent with Patient: Total time spent is greater than 50% in coordination of care (as documented) at patient's floor/unit and/or counseling patient: Coding Level of Care Code None Diagnoses Appendicitis with perforation K35.32
--- NOTE | 2020-03-17 09:06 | Hospitalist Progress Note ---
Date of Service March 17, 2020 Assessment & Plan (1) Appendicitis with perforation: 34yo female at 5 weeks + 6 days by US performed 03/14/20 presenting with 3 days of progressive abdominal pain. Patient has diffuse pain as well as focal RUQ discomfort and nausea. Suspect diffuse pain may be from chronic constipation, possibly gas. RUQUS is suspicious for acute cholecystitis. She is afebrile, tachycardic, otherwise HD stable on admission. She is in pain but non-toxic in appearance. She has a leukocytosis with WBC=14.18, elevated neutrophils. LFTs, Lipase and Lactate are WNL. General surgery consulted POD#2 s/p lap chace AND appendectomy for perforation Received Ceftriaxone IV pre-operatively - continue (on day 3 of therapy) Hx reported PCN allergy -- reported tongue swelling and will avoid PCN Flagyl not safe -- she is not currently covered for anaerobics, but will be covered for gram negative WBC wnl continues to be afebrile Diet post operatively -- advance as tolerated Zofran prn Added reglan prn for better control of nausea Pain control with Tylenol #3, diluadid prn IVF continued but will add potassium as K low at 3.0 this morning (also given 60meq PO) OB consulted for pt 6wks with bleeding reported -- appreciate input. Transvaginal US without abnormality, 6weeks 0 day gestational age (2) Acute cholecystitis: in conjuntion with ruptured appendix as above -- see operative report (3) Generalized abdominal pain: As above. Suspect constipation and gas contributing to abdominal discomfort See above Patient states adequate pain control Dulcolax ND PRN Improving, slowly (4) Chronic idiopathic constipation: Patient reports having a BM 1-2 times weekly at baseline. She has been constipated since 03/11/20. She took a suppository with some relief and had BM prior to OR on 03/15 -Colace 100mg po BID PRN -Dulcolax ND PRN -IVF and electrolyte repletion Added Miralax, and scheduled dulcolax BM on 03/16 as above (5) : Patient with confirmed intrauterine . US performed today estimates 5 weeks + 6 days. -Avoid teratogenic agents -Continue PNVs Hypophosphatemia low at 1.7 -- ordered replacement repeat wnl Hypokalemia K 3.0 -- 60meq PO and added to IVF as above Mag wnl BMP in AM DVT Prophylaxis SCDs to bilateral LEs Ambulation encouraged Dispo -continued inpatient stay Admission and Anticipated Discharge Date Admission Date: March 14, 2020 Subjective Patient evaluated around lunch time. SItting up in chair having tomato soup. Pain increased yesterday and still present with movements and pulling on her PREETI drain but improved pain to incision. PREETI output decreasing but still significant. More serous at this point compared to yesterday with continued serosanguineous. Just prior emptied by aide. Had been feeling very crampy this morning but that is also improved with potassium replacement and we discussed placing potassium in IV fluids. Still had some spotting but slightly increased. Will continue to monitor . Still without dysuria or burning with urination but possible she has a UTI as urine culture with pin-point growth and reincubating. NO fever, chills, chest pain, shortness of breath. Nausea decreased. Had loose stool last night and had some miralax this morning. Discussed could have some issues with diarrhea since removal of GB. Patient states she has not had any increased diarrhea/foul smelling/yellow discoloration concerning for cdiff but will continue to monitor. Had some back pain from sleeping in the bed and agreeable and excited about addition of heating pad for today/tonight. Questions/concerns addressed at this time. Review of Systems Review of Systems: All systems reviewed & are unremarkable except as noted in HPI & below Physical Exam Constitutional: WD/WN, vitals as above well developed, well nourished, cooperative and comfortable; no acute distress Eyes: + anicteric sclerae and PERRL ENMT: Ears: no hearing impairment Nose: no external nose abnormality Neck: normal visual inspection and trachea midline Respiratory: normal respiratory effort, lungs clear to auscultation Cardiovascular: RRR, no murmur, no edema Heart Sounds: no murmur Vessels: no JVD Extremities: no edema Gastrointestinal (Abdomen): Inspection/Auscultation: normal bowel sounds Percussion/Palpation: + abdomen tender (minimal around PREETI and with movements) and abdomen soft; no guarding and abdomen not rigid Musculoskeletal: no cyanosis or clubbing, extremities motor strength 5/5 Neurologic: PERRL, EOMI, accommodation nl, no face palsy, no dysarthria Psychiatric: Orientation: alert and oriented x 3 Lymphatic: no cervical or axillary lymphadenopathy Results & Data Results & Data ([facility]) Vital Signs (Past 12 Hours) Vital Signs Temp Pulse Resp BP Pulse Ox 03/17/20 07:24 36.6 C 77 18 110/74 98 03/16/20 22:57 36.7 C 81 16 120/82 99 Laboratory Results 03/17/20 03/17/20 03/17/20 Range/Units 08:28 08:28 06:02 WBC 6.87 (4.8-10.8) K/uL RBC 3.72 L (4.2-5.4) M/uL Hgb 10.4 L (12.0-16.0) g/dL Hct 30.9 L (37-47) % MCV 83.1 (80-100) fL MCH 28.0 (25-34) pg MCHC 33.7 (32-36) g/dL RDW Std Deviation 41.2 (36.4-46.3) fL RDW Coeff of Rustam 13.4 (11.5-14.5) % Plt Count 264 (130-400) K/uL MPV 10.1 (7.4-10.4) fL Immature Gran % (Auto) 0.6 % Neut % (Auto) 63.8 % Lymph % (Auto) 20.4 % [place] % (Auto) 9.5 % Eos % (Auto) 5.1 % Baso % (Auto) 0.6 % Neut # (Auto) 4.39 (1.4-6.5) K/uL Lymph # (Auto) 1.40 (1.2-3.4) K/uL [place] # (Auto) 0.65 H (0.11-0.59) K/uL Eos # (Auto) 0.35 (0-0.5) K/uL Baso # (Auto) 0.04 (0-0.2) K/uL Immature Gran # (Auto) 0.04 H (0.00-0.02) K/uL Sodium Pending 140 (136-145) mmol/L Potassium Pending 3.0 L (3.5-5.1) mmol/L Chloride Pending 108 H (98-107) mmol/L Carbon Dioxide Pending 26 (21-32) mmol/L Anion Gap Pending 6.0 (3-11) BUN Pending 4 L (7-18) mg/dl Creatinine Pending 0.49 L (0.6-1.2) mg/dl Est Cr Clr Drug Dosing Pending 158.2 ml/min Est GFR ( Amer) Pending 146.3 Est GFR (Non-Af Amer) Pending 126.2 BUN/Creatinine Ratio Pending 8.6 L (10-20) Glucose Pending 85 (70-99) mg/dl Calcium Pending 7.7 L (8.5-10.1) mg/dl Phosphorus 3.1 D (2.5-4.9) mg/dl Magnesium 1.8 (1.8-2.4) mg/dl Total Bilirubin 0.2 (0.2-1) mg/dl AST 28 (15-37) U/L ALT 32 (12-78) U/L Alkaline Phosphatase 63 (45-117) U/L Total Protein 4.8 L (6.4-8.2) gm/dl Albumin 1.9 L (3.4-5.0) gm/dl Globulin 2.9 (2.5-4.0) gm/dl Albumin/Globulin Ratio 0.7 L (0.9-2) 03/17/20 03/16/20 03/16/20 Range/Units 06:02 07:47 06:27 WBC 5.98 8.48 (4.8-10.8) K/uL RBC 3.51 L 3.65 L (4.2-5.4) M/uL Hgb 9.7 L 10.2 L (12.0-16.0) g/dL Hct 28.9 L 30.3 L (37-47) % MCV 82.3 83.0 (80-100) fL MCH 27.6 27.9 (25-34) pg MCHC 33.6 33.7 (32-36) g/dL RDW Std Deviation 41.3 40.8 (36.4-46.3) fL RDW Coeff of Rustam 13.5 13.3 (11.5-14.5) % Plt Count 260 285 (130-400) K/uL MPV 10.4 10.8 H (7.4-10.4) fL Immature Gran % (Auto) 0.2 % Neut % (Auto) 77.3 % Lymph % (Auto) 12.9 % [place] % (Auto) 9.0 % Eos % (Auto) 0.5 % Baso % (Auto) 0.1 % Neut # (Auto) 6.56 H (1.4-6.5) K/uL Lymph # (Auto) 1.09 L (1.2-3.4) K/uL [place] # (Auto) 0.76 H (0.11-0.59) K/uL Eos # (Auto) 0.04 (0-0.5) K/uL Baso # (Auto) 0.01 (0-0.2) K/uL Immature Gran # (Auto) 0.02 (0.00-0.02) K/uL Sodium (136-145) mmol/L Potassium (3.5-5.1) mmol/L Chloride (98-107) mmol/L Carbon Dioxide (21-32) mmol/L Anion Gap (3-11) BUN (7-18) mg/dl Creatinine (0.6-1.2) mg/dl Est Cr Clr Drug Dosing ml/min Est GFR ( Amer) Est GFR (Non-Af Amer) BUN/Creatinine Ratio (10-20) Glucose (70-99) mg/dl Calcium (8.5-10.1) mg/dl Phosphorus 1.7 L (2.5-4.9) mg/dl Magnesium (1.8-2.4) mg/dl Total Bilirubin (0.2-1) mg/dl AST (15-37) U/L ALT (12-78) U/L Alkaline Phosphatase (45-117) U/L Total Protein (6.4-8.2) gm/dl Albumin (3.4-5.0) gm/dl Globulin (2.5-4.0) gm/dl Albumin/Globulin Ratio (0.9-2) PG Care Time/CCT Total # of Minutes Spent Total Time Spent with Patient: Total time spent is greater than 50% in coordination of care (as documented) at patient's floor/unit and/or counseling patient: Coding Level of Care Code 17247 Subseq Hosp Care Lvl 2 Diagnoses Appendicitis with perforation K35.32 Acute cholecystitis K81.0 Generalized abdominal pain R10.84 Chronic idiopathic constipation K59.04 Z3A.01 Weeks of gestation: less than 8 weeks (1) Weeks of gestation: less than 8 weeks Qualified Code(s): Z3A.01 - Less than 8 weeks gestation of
[2020-03-17 09:12] LABS: BUN Creatinine Ratio 7.5 (10-20); Calcium 7.7 mg/dl (8.5-10.1); Est GFR (African American) 139.2; Est GFR (Non-African American) 120.1
[2020-03-17] MEDS: POTASSIUM CHLORIDE 40 MEQ in SODIUM CHLORIDE 0.9% 1000ML 1,000 ML IV SCH (13:36)
[2020-03-17] MEDS: cefTRIAXone SODIUM 1,000 MG in DEXTROSE 5% 50 ML IV SCH (15:59)
[2020-03-18] MEDS: ACETAMINOPHEN W/CODEINE #3 1 TAB PO PRN ×4 (00:36→21:53)
[2020-03-18] MEDS: POTASSIUM CHLORIDE 40 MEQ in SODIUM CHLORIDE 0.9% 1000ML 1,000 ML IV SCH (02:24)
--- NOTE | 2020-03-18 07:02 | Ultrasound Report ---
EXAMINATION: RENAL ULTRASOUND CLINICAL HISTORY: hematuria, ATN COMPARISON STUDY: 03/14/2020 FINDINGS: The right kidney measures 11.3 cm. The left kidney measures 11.5 cm. There is no evidence of hydronephrosis. There are no renal masses. There is right upper quadrant shadowing artifact from a surgical drain. No bladder abnormalities are visualized. Bilateral ureteral jets were visualized. IMPRESSION : No renal abnormalities identified. ACT 112: Negative or not required by law. Electronically signed by: Corky Altamirano M.D. 03/18/2020 7:00 AM
[2020-03-18 07:49] LABS: Hematocrit (blood only) 33.3 % (37-47); Hemoglobin 11.2 g/dL (12.0-16.0); Mean Corpuscular Hemoglobin 27.9 pg (25-34); Mean Corpuscular Hgb Conc 33.6 g/dL (32-36); Platelet Count 316 K/uL (130-400); RDW Coefficient of Variation 13.4 % (11.5-14.5); RDW Standard Deviation 41.2 fL (36.4-46.3); Red Blood Count 4.01 M/uL (4.2-5.4); White Blood Count 7.83 K/uL (4.8-10.8)
--- NOTE | 2020-03-18 08:18 | Surgery Progress Note ---
Date of Service March 18, 2020 Assessment & Plan (1) Appendicitis, acute: POD 3 lap appy + chace improved WBC normalized moderate drainage, plan to d/c with drain and remove Wednesday seen by Dr. Vale this AM Admission and Anticipated Discharge Date Admission Date: March 14, 2020 Subjective feeling better, tolerating diet Physical Exam Gastrointestinal (Abdomen): Inspection/Auscultation: + abdominal surgical drain present (80 cc overnight) Percussion/Palpation: abdomen soft Results & Data ([facility]) Vital Signs (Past 12 Hours) Vital Signs Temp Pulse Pulse Resp BP Pulse Ox 03/18/20 07:56 36.6 C 86 18 104/73 95 03/17/20 23:10 36.9 C 79 16 122/76 98 PG Care Time/CCT Total # of Minutes Spent Total Time Spent with Patient: Total time spent is greater than 50% in coordination of care (as documented) at patient's floor/unit and/or counseling patient: Coding Level of Care Code None Diagnoses Appendicitis, acute K35.80
[2020-03-18 08:21] LABS: Basophils # (auto) 0.03 K/uL (0-0.2); Basophils % (auto) 0.4 %; Eosinophils # (auto) 0.38 K/uL (0-0.5); Eosinophils % (auto) 4.9 %; Immature Granulocytes # (auto) 0.04 K/uL (0.00-0.02); Immature Granulocytes % (auto) 0.5 %; Lymphocytes # (auto) 1.79 K/uL (1.2-3.4); Lymphocytes % (auto) 22.9 %; Monocytes # (auto) 0.67 K/uL (0.11-0.59); Monocytes % (auto) 8.6 %; Neutrophils # (auto) 4.92 K/uL (1.4-6.5); Neutrophils % (auto) 62.7 %
[2020-03-18 08:29] LABS: Albumin Globulin Ratio 0.6 (0.9-2); Albumin Level 2.2 gm/dl (3.4-5.0); BUN Creatinine Ratio 6.5 (10-20); Bilirubin,Total 0.3 mg/dl (0.2-1); Calcium 8.6 mg/dl (8.5-10.1); Creatinine Clr Calc Pharmacy 143.6 ml/min; Est GFR (African American) 141.7; Est GFR (Non-African American) 122.3; Globulin 3.5 gm/dl (2.5-4.0); Magnesium 1.9 mg/dl (1.8-2.4); Phosphorus 3.3 mg/dl (2.5-4.9); Potassium 4.2 mmol/L (3.5-5.1); Total Protein 5.7 gm/dl (6.4-8.2)
[2020-03-18] MEDS: PRENATAL VITAMIN 1 TAB PO SCH (08:33)
[2020-03-18] MEDS: FAMOTIDINE 20 MG in SYRINGE 3 ML IV SCH (08:34)
[2020-03-18] MEDS: POLYETHYLENE (MIRALAX) 17 GM PACK PO SCH (08:34)
--- NOTE | 2020-03-18 14:40 | Ultrasound Report ---
US OB transvaginal CLINICAL HISTORY: . Cramping. COMPARISON STUDY: 03/16/2020 FINDINGS: A single live intrauterine gestation was visualized. The amniotic sac was somewhat elongated. The microsoft bi developer wn-rump length measured 6 mm corresponding to an estimated postmenstrual age of 6 weeks and 3 days. T here is a 2 mm yolk sac. The heart rate was 54. IMPRESSION: 1. Single live intrauterine gestation with an estimated postmenstrual age of 6 weeks and 3 days 2. Elongated amniotic sac 3. bradycardia (54 bpm). This is a poor prognostic indicator. Short-term follow-up is recommend ed. ACT 112: Negative or not required by law. Electronically signed by: Corky Altamirano M.D. 03/18/2020 2:38 PM
[2020-03-18] MEDS: cefTRIAXone SODIUM 1,000 MG in DEXTROSE 5% 50 ML IV SCH (16:20)
--- NOTE | 2020-03-18 18:52 | Hospitalist Progress Note ---
Date of Service March 18, 2020 Assessment & Plan (1) Appendicitis with perforation: 34yo female at 5 weeks + 6 days by US performed 03/14/20 presenting with 3 days of progressive abdominal pain. Patient has diffuse pain as well as focal RUQ discomfort and nausea. Suspect diffuse pain may be from chronic constipation, possibly gas. RUQUS is suspicious for acute cholecystitis. She is afebrile, tachycardic, otherwise HD stable on admission. She is in pain but non-toxic in appearance. She has a leukocytosis with WBC=14.18, elevated neutrophils. LFTs, Lipase and Lactate are WNL. General surgery consulted POD#3 s/p lap chace AND appendectomy for perforation Received Ceftriaxone IV pre-operatively - continue (on day 4 of therapy) medically improving/improving per surgery as well vaginal bleeding and cramping highly concerning for miscarraige - dw pt who noted that she feared this - "i'm ok, i'm not ok but i'm ok" - after discussions repeat US obtained and results d/w pt - worrisome for progressive miscarriage. (d/w OB as well). continue to follow/supportive care and expectant management (2) Acute cholecystitis: in conjuntion with ruptured appendix as above -- see operative report continue abx (3) Generalized abdominal pain: from all of above and constipation - improved overall (4) Chronic idiopathic constipation: no complaints of this today (5) : see above - highly concerning for going through miscarriage. discussed w pt extensively. continue supportive care and expectant management. still will avoid teratogens DVT Prophylaxis SCDs to bilateral LEs Ambulation encouraged Dispo - hopefully home in a day or so if ongoing improvement Admission and Anticipated Discharge Date Admission Date: March 14, 2020 Subjective cramping and bleeding much like a period - worse as the day progressed eating ok and tolerating PO well emotional as appropriate given the situation, but notes "i'm ok" Review of Systems Review of Systems: All systems reviewed & are unremarkable except as noted in HPI & below Physical Exam Physical Exam: gen aaox3 pleasant nad heent nc at mmm breathing unlabored no accessory muscles good effort skin no rashes no pallor or icterus neuro no focal deficits Results & Data Results & Data ([facility]) Vital Signs (Past 12 Hours) Vital Signs Temp Pulse Resp BP Pulse Ox 03/18/20 15:45 98.4 F 81 18 113/77 96 03/18/20 07:56 97.9 F 86 18 104/73 95 PG Care Time/CCT Total # of Minutes Spent Total Time Spent with Patient: Total time spent is greater than 50% in coordination of care (as documented) at patient's floor/unit and/or counseling patient: Coding Level of Care Code 74441 Subseq Hosp Care Lvl 3 Diagnoses Appendicitis with perforation K35.32 Acute cholecystitis K81.0 Generalized abdominal pain R10.84 Chronic idiopathic constipation K59.04 Z3A.01 Weeks of gestation: less than 8 weeks (1) Weeks of gestation: less than 8 weeks Qualified Code(s): Z3A.01 - Less than 8 weeks gestation of
--- NOTE | 2020-03-18 20:45 | Gynecologic Progress Note ---
Date of Service March 18, 2020 Assessment & Plan (1) Threatened : Muna is a 34-year-old approximately 6 weeks 3 days gestational age by first-trimester ultrasound. Heart rate was noted declined ultrasound today to the upper 50s as detailed per HPI. Discussed this is likely to become a nonviable over the next couple of days. Recommended to the patient that we re-evaluate with ultrasound within the next couple of days. This can be done inpatient or outpatient pending the patient's disposition. Per patient request I reviewed treatment options in the event that a nonviable is established including expectant management, medical management or surgical management as noted per HPI. Risks and benefits of each of these options were reviewed in detail and all questions answered patient's satisfaction. We extensively discussed bleeding precautions and recommended that she would need more acute care and likely surgical options in the event that she was bleeding greater than 1 pad an hour for greater than 8-10 hours or greater than 2 pads an hour for greater than 2-4 hours. Patient reports that she believe she is being discharged tomorrow and I discussed that I would arrange for outpatient follow- up in OBGYN clinic on 03/20 for ultrasound and discuss treatment options. If she is not discharge tomorrow I would recommend a follow-up ultrasound tomorrow or Wednesday and a treatment plan can be formalized with her inpatient in the event that the ultrasound documents non-viability. I discussed that if she has heavy bleeding as detailed above acute intervention would be necessary and to please contact on-call OBGYN to initiate acute care. Greater than 20 minutes was spent patient [id number] counseling. Admission and Anticipated Discharge Date Admission Date: March 14, 2020 Subjective Muna is a 34-year-old at 6 weeks 3 days gestational age by ultrasound on March 14. Repeat ultrasound was performed today which heart rate was noted in the upper 50s with prior ultrasounds documenting heart rate in the 110- 120s. Patient is reporting that she continues have vaginal bleeding reports this is approximately 1 pad every 4-6 hours. Discussed the ultrasound findings from today with Muna. I discussed this is likely going to be a nonviable based on the heart rate on today's ultrasound. Discussed that we would need to repeat ultrasound the next couple of days to further evaluate viability. Discussed treatment options in the event that this is diagnosis of missed per patient request. I reviewed all 3 options including expected management, medical intervention via Cytotec and surgical treatment via a dilation evacuation the uterus. Risks and benefits of all 3 options were discussed in detail multiple questions answered patient's satisfaction. Physical Exam Constitutional: WD/WN, vitals as above Psychiatric: A+Ox3, euthymic affect Results & Data ([facility]) Vital Signs (Past 12 Hours) Vital Signs Temp Pulse Resp BP Pulse Ox 03/18/20 15:45 36.9 C 81 18 113/77 96 PG Care Time/CCT Total # of Minutes Spent Total Time Spent with Patient: Total time spent is greater than 50% in coordination of care (as documented) at patient's floor/unit and/or counseling patient: Coding Level of Care Code 31160 Subseq Hosp Care Lvl 2 Diagnoses Threatened O20.0
[2020-03-19] MEDS: ACETAMINOPHEN W/CODEINE #3 1 TAB PO PRN ×3 (03:09→12:59)
[2020-03-19] MEDS ORDERED: CEFDINIR 300 MG CAP PO SCH (09:00)
[2020-03-19] MEDS: PRENATAL VITAMIN 1 TAB PO SCH (09:07)
[2020-03-19] MEDS: POLYETHYLENE (MIRALAX) 17 GM PACK PO SCH (09:07)
[2020-03-19] MEDS: FAMOTIDINE 20 MG in SYRINGE 3 ML IV SCH (09:19)
--- NOTE | 2020-03-19 10:04 | Surgery Progress Note ---
Date of Service March 19, 2020 Assessment & Plan (1) Appendicitis, acute: POD 4 lap appy + chace seen with Dr. Vale drain removed, ok for d/c, can f/u in clinic next week Admission and Anticipated Discharge Date Admission Date: March 14, 2020 Subjective some discomfort around drain Physical Exam Gastrointestinal (Abdomen): Inspection/Auscultation: + abdominal surgical incision (clean, dry) and + abdominal surgical drain present (serous); abdomen not distended Percussion/Palpation: abdomen soft Results & Data ([facility]) Vital Signs (Past 12 Hours) Vital Signs Temp Pulse Resp BP Pulse Ox 03/18/20 23:20 36.8 C 94 H 16 125/77 98 PG Care Time/CCT Total # of Minutes Spent Total Time Spent with Patient: Total time spent is greater than 50% in coordination of care (as documented) at patient's floor/unit and/or counseling patient: Coding Level of Care Code None Diagnoses Appendicitis, acute K35.80
--- NOTE | 2020-03-19 20:09 | Discharge Summary ---
Date of Service March 19, 2020 Admission HPI Per Admitting Provider Muna Villa is a 34yo female at 5 weeks + 6 days with confirmed intrauterine presenting with abdominal pain. Patient reports developing sharp lower abdominal pain and pressure on 03/11/20 as well as pressure with urination. She was seen at [facility] with this complaint on 03/12/20 and was treated with Zofran, Morphine and Oxycodone at that time. She had an MRI of the abdomen which revealed normal liver with scattered small cysts. Normal gallbladder, pancreas, spleen, adrenal glands and kidneys. Normal appendix. Presence of gestational sac within the uterus consistent with early . She had an US which noted 5w Od at that time. Her symptoms continued and she was seen at [facility] again on 03/14/20. Patient continues to have diffuse abdominal pain. Her pain is now more diffuse, with spasm and cramping, radiation into her back. She has had nausea with 4 episodes of non-bloody/non-bilious emesis - last emesis was 03/12/20. She has chronic constipation and reports being very constipated. She took a suppository and had some diarrhea. Poor appetite with decreased PO intake with last full meal being on 03/11/20. She denies fevers/chills/chest pain/palpitations/cough/SOB. No additional complaints at this time. On arrival to the ER she was found to be afebrile, sinus tachycardia at 114 bpm ER Course: Zofran 4mg IV, NSS x 2L, Dilaudid 0.5mg IV x 2, Ceftriaxone 1gm IV (18:39), Pepcid 20mg IV, Dilaudid 0.5mg IV, Phenergan 25mg IV Principal Diagnosis cholecystitis, appendicitis Discharge Exam gen aaox3 pleasant nad heent nc at mmm breathing unlabored no accessory muscles good effort skin no rashes no pallor or icterus Discharge Data Allergies Allergy/AdvReac Type Severity Reaction Status Date / Time adhesive tape Allergy Mild blisters Unverified 03/14/20 15:01 on skin Penicillins Allergy Verified 03/14/20 15:00 Consultations 03/14/20 22:23 ED Decision to Admit Stat 03/15/20 00:38 Consult General Surgery Routine 03/15/20 09:34 Consult Obstetrics Routine Procedures Performed Operation Date: 03/15/20 08:50 Actual Procedures p Laparoscopic Cholecystectomy and (Not Applicable) - Yang Vale MD s Laparoscopic Appendectomy(Not Applicable) - Yang Vale MD Ordered Studies 03/14/20 16:35 US OB <= 14 weeks fetus Stat 03/14/20 16:36 US OB transvaginal Stat 03/14/20 20:28 US abdomen complete Urgent 03/16/20 09:00 US OB transvaginal Routine 03/17/20 17:03 US renal/blad retro comp Routine 03/18/20 13:05 US OB transvaginal Routine Hospital Course (1) Appendicitis with perforation: 34yo female at 5 weeks + 6 days by US performed 03/14/20 presenting with 3 days of progressive abdominal pain. Patient has diffuse pain as well as focal RUQ discomfort and nausea. Suspect diffuse pain may be from chronic constipation, possibly gas. RUQUS is suspicious for acute cholecystitis. She is afebrile, tachycardic, otherwise HD stable on admission. She is in pain but non-toxic in appearance. She has a leukocytosis with WBC=14.18, elevated neutrophils. LFTs, Lipase and Lactate are WNL. General surgery consulted POD#4 s/p lap chace AND appendectomy for perforation treated w rocephin transition to cefdinir medically improving/improving per surgery as well - stable for home, outpt f/u later this week vaginal bleeding and cramping highly concerning for miscarriage - dw pt who noted that she feared this - "i'm ok, i'm not ok but i'm ok" - after discussions repeat US obtained and results d/w pt - worrisome for progressive miscarriage. (d/w OB as well). continue to follow/supportive care and expectant management - OB appt tomorrow (2) Acute cholecystitis: in conjuntion with ruptured appendix as above -- see operative report continue abx (3) Generalized abdominal pain: from all of above and constipation - improved overall (4) Chronic idiopathic constipation: no complaints of this today (5) : see above - highly concerning for going through miscarriage. discussed w pt extensively. continue supportive care and expectant management. still will avoid teratogens DVT Prophylaxis SCDs to bilateral LEs Ambulation encouraged Dispo - safe for home, close OB and surgery f/u Total Time Total Time Spent Total Time Spent (In Minutes): <30 Discharge Plan Discharge Items Patient Disposition: Home - Self-Care Reason For Visit: ACUTE CHOLECYSTITIS Discharge Diagnosis: cholecystitis appendicitis Activity: Per Instructions section Lifting: No more than 10 pounds Bathing Comment: may shower, no soaking in tubs/pools Exercise/Sports: Wait until after follow-up appointment Driving/Machine Use: do not resume driving while taking narcotics for pain Non-emergency contact: Primary Care Provider Call non-emergency contact if: you have any medication questions, your symptoms worsen, your pain is not controlled, your pain is worsening, your pain is unusual for you, your pain is concerning for you, you have a fever, your temperature is above 101.5, your wound has increased redness, your wound has increased drainage and your wound pain has increased Follow-up/Referrals: Yang Vale MD [Surgeon] - 03/22/20 10:15 am (Please call to make an appt in 1-2 weeks) Dipak Villa [Primary Care Provider] - Diet: Regular Addtl Attending Provider Instructions: You have small white bandages over your incisions called steri-strips. You may shower with these on. They will tend to fall off on their own within 7-10 days. Pending Studies at Discharge: Yes Studies:: surgical pathology Stand-Alone Forms: My [facility], Opioid Pain Management, Smoking Cessation Medications and DC Order Prescriptions: New cefdinir 300 mg Capsule 300 mg PO BID Qty: 9 RF: 0 Continued cetirizine [Zyrtec] 10 mg Tablet 10 mg PO QAM RF: 0 acetaminophen-codeine 300-15 mg Tablet 1 tab PO ONCE RF: 0 Complete 14 mg iron- 400 mcg Tablet 1 tab PO QAM RF: 0 Discharge Orders: Discharge Order (Routine); Ordered 03/19/20 Ordered By: Dionte Avila/Other Patient Handouts: Appendectomy Laparoscopic Dc, Cholecystectomy Laparoscopic Dc Admission Data Admit Date/Time: 03/14/20 23:08 Attending Provider: Dionte Montgomery Admit Provider: Alisha Jason Primary Care Provider: Dipak Villa Other Providers: Alisha Jason ; Yang Vale ; Adalid Foy ; Royer Mistry Other Interventions: Discharge Summary Assessment (RN) Last Done: 03/19/20 09:49 Coding Level of Care Code D/C Day Management <30 mins Diagnoses Appendicitis with perforation K35.32 Acute cholecystitis K81.0 Generalized abdominal pain R10.84 Chronic idiopathic constipation K59.04 Z3A.01 Weeks of gestation: less than 8 weeks
[2020-03-20] MEDS ORDERED: FAMOTIDINE 20 MG TAB PO SCH (09:00)
== END 2020-03-19 13:15 | disposition home or self-care (01) | DRG 817 ==
LOC: ED 13:49 → SUATTDRO 23:08 → 3W 23:08

== ENCOUNTER 2021-04-07 05:27 | Inpatient (IN) ==
--- NOTE | 2021-03-28 15:07 | Anesthesiology Consultation ---
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 Works from home. Wears mask in public. Travels to [facility]- otherwise no other travel. No known Covid positive exposures or Covid related symptoms. No known Covid infection in the past 90 days. Patient is fully vaccinated for Covid. Preop Covid testing scheduled 04/03/21 = will await results. brady Sanchez 03/14/20= Done under GA with Grade 2 view with MAC #3. ETT #7.5. History Surgery Operation Date: 04/07/21 07:30 Proposed Procedures p Section in LD - Buck Clinton MD Height/Weight Height: 5 ft 4 in Weight: 95.254 kg Allergies Allergy/AdvReac Type Severity Reaction Status Date / Time adhesive tape Allergy Mild blisters Verified 03/28/21 14:29 on skin-WITH TAPE Penicillins Allergy Vomiting Verified 03/28/21 14:29 Medications Home Medications Medication Instructions Recorded Confirmed Last Taken cetirizine 10 mg tablet (Zyrtec) 10 mg PO QAM 03/14/20 03/28/21 02/19/21 07:30 vits,calcium 21-iron fum 1 tab PO QAM 03/14/20 03/28/21 02/19/21 07:30 14 mg iron-folic acid 400 mcg tablet ( Complete) calcium carbonate 200 mg calcium 200 mg PO QID PRN 03/28/21 03/28/21 Unknown (500 mg) chewable tablet (Tums) Past Medical History Medical History Asthma A CHILD-NO INHALERS Chronic idiopathic constipation Eosinophilic esophagitis RESOLVED Migraine HX WHEN NOT Temporomandibular joint disorder CLICKS RIGHT SIDE-NO LOCKING Past Family History Family History Father Hypertension Gallbladder disease Family history of diabetes mellitus Grandmother (Paternal) Breast cancer Grandfather (Paternal) Family history of esophageal cancer Denies family history of Ovarian cancer Colorectal cancer Past Surgical History Surgical History H/O cervical biopsy H/O section x 2 H/O dilation and curettage History of colonoscopy History of esophagogastroduodenoscopy (EGD) History of laparoscopic appendectomy (03/15/20) Laparoscopic Cholecystectomy and Laparoscopic Appendectomy Dr. Vale 03/15/2020-WAS AT THE TIME-WOKE UP IN A PANIC, DISORIENTED History of oral surgery Hx laparoscopic cholecystectomy (03/15/20) Laparoscopic Cholecystectomy and Laparoscopic Appendectomy Dr. Vale 03/15/2020 Social History Smoking Status: Never smoker tobacco type: e-cigarettes Smoking cigarettes per day: WHEN NOT -SEVERAL TIMES A DAY Do You Dip or Chew Tobacco: No Hx Alcohol Use: Yes Alcohol Intake Frequency Comment: NOT -RARELY Hx Substance Use: No substance use type: does not use Lab Results Anesthesia Preop Results Results Anesthesia Widget: WBC 8.17 K/uL (4.8-10.8) 02/19/21 Hgb 11.0 g/dL (12.0-16.0) L 02/19/21 Hct 33.4 % (37-47) L 02/19/21 Plt 254 K/uL (130-400) 02/19/21 Urine Color Yellow 02/19/21 Urine Appearance Clear (Clear) 02/19/21 Urine pH 8.0 (4.5-7.5) H 02/19/21 Urine Specific [place] 1.009 (1.000-1.030) 02/19/21 Urine Protein Negative (Negative) 02/19/21 Urine Glucose (UA) Negative (Negative) 02/19/21 Urine Ketones Negative (Negative) 02/19/21 Urine Blood Negative (Negative) 02/19/21 Urine Nitrite Negative (Negative) 02/19/21 Urine Bilirubin Negative (Negative) 02/19/21 Urine Urobilinogen Negative (Negative) 02/19/21 Urine Leukocyte Esterase Negative (Negative) 02/19/21
[2021-04-07] MEDS ORDERED: LACTATED RINGER'S 1,000 ML IV SCH ×3 (05:30→15:00)
[2021-04-07 05:58] LABS: Hematocrit (blood only) 35.1 % (37-47); Hemoglobin 11.4 g/dL (12.0-16.0); Mean Corpuscular Hemoglobin 27.5 pg (25-34); Mean Corpuscular Hgb Conc 32.5 g/dL (32-36); Mean Corpuscular Volume 84.6 fL (80-100); Mean Platelet Volume 11.1 fL (7.4-10.4); Platelet Count 236 K/uL (130-400); RDW Coefficient of Variation 15.3 % (11.5-14.5); RDW Standard Deviation 47.2 fL (36.4-46.3); Red Blood Count 4.15 M/uL (4.2-5.4); White Blood Count 8.35 K/uL (4.8-10.8)
[2021-04-07] MEDS ORDERED: CITRIC ACID/SODIUM CITRATE 15 ML UDC PO SCH (06:00)
[2021-04-07] MEDS ORDERED: ceFAZolin 2000MG 2,000 MG/15 ML SYR IV SCH ×2 (06:00)
[2021-04-07] MEDS ORDERED: SODIUM CHLORIDE 0.9% 250 ML IV PRN (06:08)
--- NOTE | 2021-04-07 07:23 | History & Physical Report ---
Date of Service April 07, 2021 Assessment & Plan (1) Encounter for supervision of normal in multigravida: (2) Previous delivery, antepartum condition or complication: (3) Encounter for pre-operative examination: Plan: 35yo at 39.0 weeks GA. Presents for scheduled repeat LTCS with BTL for hx of LTCS x2. 1. Fetus: Cat 1 2. Delivery: C-sections consents reviewed and signed 3. Vitals: WNL Admission and Anticipated Discharge Date Admission Date: April 07, 2021 History of Present Illness Primary Care Provider: Dipak Villa 35yo at 39.0 weeks GA. Presents for repeat LTCS with BTL has Hx LTCS x2. complicated by AMA otherwise. OB Labs: Blood Type A Positive 09/02/20 Antibody Screen NEGATIVE 09/02/20 Hemoglobin 11.0 g/dL (12.0-16.0) L 02/19/21 Hematocrit 33.4 % (37-47) L 02/19/21 Mean Corpuscular Volume 84.1 fL (80-100) 02/19/21 Platelet Count 254 K/uL (130-400) 02/19/21 Rubella IgG Antibody Immune (Immune) 09/02/20 Rapid Plasma Reagin Nonreactive (Nonreactive) 09/02/20 Hepatitis B Surface Antigen Neg (Neg) 09/02/20 HIV (1&2) Ab and P24 Ag, 4th Gener Neg (Neg) 09/02/20 Glucose 1 Hour 50 gm Load 104 mg/dl (70-130) 01/20/21 OB Optional Labs: Chlamydia trachomatis RNA NOT DETECTED (NOT DETECTED) 09/02/20 Neisseria gonorrhoeae RNA NOT DETECTED (NOT DETECTED) 09/02/20 Labs Reviewed: GBS neg Allergies Allergy/AdvReac Type Severity Reaction Status Date / Time adhesive tape Allergy Mild blisters Verified 04/04/21 16:02 on skin-WITH TAPE Penicillins Allergy Vomiting Verified 04/04/21 16:02 Home Medications Medication Instructions Recorded Confirmed Type cetirizine 10 mg tablet (Zyrtec) 10 mg PO QAM 03/14/20 04/04/21 History vits,calcium 21-iron fum 1 tab PO QAM 03/14/20 04/04/21 History 14 mg iron-folic acid 400 mcg tablet ( Complete) calcium carbonate 200 mg calcium 200 mg PO QID PRN 03/28/21 04/04/21 History (500 mg) chewable tablet (Tums) Patient History Medical History Asthma A CHILD-NO INHALERS Chronic idiopathic constipation Eosinophilic esophagitis RESOLVED Migraine HX WHEN NOT Temporomandibular joint disorder CLICKS RIGHT SIDE-NO LOCKING Surgical History H/O cervical biopsy H/O section x 2 H/O dilation and curettage History of colonoscopy History of esophagogastroduodenoscopy (EGD) History of laparoscopic appendectomy (03/15/20) Laparoscopic Cholecystectomy and Laparoscopic Appendectomy Dr. Vale -WAS AT THE TIME-WOKE UP IN A PANIC, DISORIENTED History of oral surgery Hx laparoscopic cholecystectomy (03/15/20) Laparoscopic Cholecystectomy and Laparoscopic Appendectomy Dr. Vale 03/15/2020 Family History Father Hypertension Gallbladder disease Family history of diabetes mellitus Grandmother (Paternal) Breast cancer Grandfather (Paternal) Family history of esophageal cancer Denies family history of Ovarian cancer Colorectal cancer Social History Smoking Status: Never smoker Tobacco Type: E-cigarettes / Vaping Second Hand Exposure: No; Do You Dip or Chew Tobacco: No; Hx Alcohol Use: No Hx Substance Use: No Preferred Language: American Communication Ability: Effective Banjo Repairer Required: No Beliefs That Will Affect Care: None marital status: Single marital status details: dion Pineda(33) [phone] Current Living Situation: Family and Significant Other Current Living Situation Comment: Lives with fosanju, 2 children, dog, cats-fob changing litter current occupational status: employed 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 Other Information That Helps Us Care for You: No Feels Safe at Home: Yes Safety Concerns: Feels Safe At This Time Assistive Devices: None Physical Exam Constitutional: WD/WN, vitals as above well developed, well nourished and + well hydrated; no acute distress Neck: trachea midline, no thyromegaly Respiratory: normal respiratory effort, lungs clear to auscultation no respiratory distress, no labored breathing and no cough Cardiovascular: RRR, no murmur, no edema Heart Sounds: normal S1 and normal S2 Gastrointestinal (Abdomen): normal bowel sounds, soft, nontender, no hepatosplenomegaly Inspection/Auscultation: abdomen not distended and no abdominal edema Skin: no rashes, warm and dry normal turgor Neurologic: PERRL, EOMI, accommodation nl, no face palsy, no dysarthria normal touch/pain/proprioception Psychiatric: A+Ox3, euthymic affect Apperance: appropriately dressed and appropriately groomed Results & Data ([facility]) Vital Signs (Past 12 Hours) Vital Signs Temp Pulse Resp BP 04/07/21 05:39 36.7 C 73 18 122/83 04/07/21 05:38 73 122/83 Coding Level of Care Code None Diagnoses Encounter for supervision of normal in multigravida Z34.80 Previous delivery, antepartum condition or complication O34.219 Encounter for pre-operative examination Z01.818
[2021-04-07] MEDS ORDERED: OXYTOCIN 10 UNITS/ML 10ML VIAL ONE (08:21)
[2021-04-07] MEDS ORDERED: MoRPHine SULFATE PF 1 MG/ML 10 ML AMP/VIAL ONE (08:21)
[2021-04-07] MEDS ORDERED: fentaNYL citrate 100 MCG/2 ML VIAL ONE (08:21)
[2021-04-07] MEDS ORDERED: NALOXONE HCL 0.4 MG/1 ML VIAL/CARP IV PRN (09:01)
[2021-04-07] MEDS ORDERED: LACTATED RINGER'S 500 ML IV PRN (09:01)
[2021-04-07] MEDS ORDERED: NALBUPHINE HCL INJ 10 MG/ML AMP IV PRN (09:01)
[2021-04-07] MEDS ORDERED: diphenhydrAMINE 50 MG/ML VIAL IV PRN (09:01)
[2021-04-07] MEDS ORDERED: KETOROLAC 30 MG/ML VIAL IV PRN (09:01)
[2021-04-07] MEDS ORDERED: NALOXONE HCL 1 MG in SODIUM CHLORIDE 0.9% 1000ML 1,000 ML IV PRN (09:01)
[2021-04-07] MEDS ORDERED: NALOXONE HCL 0.08 MG in SYRINGE 1.8 ML IV PRN (09:01)
[2021-04-07] MEDS ORDERED: HYDROmorphone INJ 0.5 MG/0.5 ML SYR IV PRN (09:01)
[2021-04-07] MEDS ORDERED: ONDANSETRON INJ 2 MG/ML 2 ML VIAL IV PRN (09:01)
[2021-04-07] MEDS ORDERED: ePHEDrine sulfate 50 MG/ML AMP IV PRN (09:01)
[2021-04-07] MEDS ORDERED: MoRPHine SULFATE PF 1 MG/ML 10 ML AMP/VIAL INT SPINAL ONE (09:01)
[2021-04-07] MEDS ORDERED: SODIUM CHLORIDE 0.9% 1000ML 1,000 ML IV SCH (09:15)
[2021-04-07] MEDS ORDERED: NO NARCOTICS OR SEDATIVES SCH (09:15)
[2021-04-07] MEDS ORDERED: PHENYLEPHRINE 100MCG/ML 5ML SYR ONE (13:59)
[2021-04-07] MEDS ORDERED: ONDANSETRON INJ 2 MG/ML 2 ML VIAL ONE (14:00)
[2021-04-07] MEDS ORDERED: ARISTA ABSORBABLE HEMOSTAT 3GM TOP ONE (14:41)
--- NOTE | 2021-04-07 14:51 | Operative Report ---
PG Post Operative Report Pre & Post Diagnosis Operation Date: 04/07/21 07:30 Pre-Op Diagnosis: History of Section, desires repeat, desires sterilization Post-Op Diagnosis: History of section., desires repeat, desires sterilization I identified the patient and participated in the time-out.: Yes Procedure Operation Date: 04/07/21 07:30 Actual Procedures p Section, delivery of live female child in OR 3 - Jordyn Tate MD, FACOG s Bilateral Tubal Ligation Surgeon Jordyn Tate MD, FACOG Lathe Sander Dr. Oconnell Estimated Blood Loss 600 Findings Consistent with Post-Op Diagnosis viable female , apgars 8/9. nl utx/tubes/ovs. peritoneal cyst off of the left ovary Fluids 1400cc Specimens none Drains elliott Anesthesia Type Spinal Complications none Disposition Accompanied Patient To Recovery: Yes Disposition: L&D Indications [id number] with c/s x 2 , plan repeat c/s. desires sterilization. Description of Procedure The patient was taken to the operating room where she was identified verbally and by bracelet. She was seated on the operating table where a spinal anesthetic was placed by anesthesia. She was then placed in the supine position with a leftward tilt. A Elliott catheter was placed sterilely. the patient was prepped and draped in a normal standard fashion. the anesthetic was tested and found to be adequate. A time-out was held, identifying correct patient, procedure, positioning and preoperative antibiotics. There were no concerns. A Pfannenstiel skin incision was made with a knife and taken down to the underlying layer of fascia with the knife and Bovie electrocautery. Bleeding was attended to with the Bovie. The fascia was incised in the midline with the knife and taken out laterally with scissors. The superior edge of the fascial incision was grasped, elevated and the underlying layer of rectus muscle was taken off bluntly and with scissors. In a similar fashion, the inferior edge of the fascial incision was grasped, elevated and the underlying layer of rectus muscle was taken off bluntly and with scissors. The muscles were bluntly in the midline. The peritoneum was entered bluntly. The incision was then stretched. The bladder blade was placed. The vesicouterine peritoneum was identified, entered with scissors and taken out laterally with scissors. The bladder flap was created digitally A hysterotomy incision was scored with a k nife and the incision was stretched superiorly and inferiorly with the machine operator transplanter's fingers. The operators hand was placed into the incision and the head was delivered atraumatically. No nuchal cord. The nose and mouth were bulb suctioned. the rest of the infant was then delivered without difficulty. The nose and mouth were again bulb suctioned. The cord was clamped and cut and the infant was then handed off to the awaiting ship/rec/doc control for drying and attention. Cord blood and segment were obtained. The placenta was Manually extracted. The uterus was exteriorized and cleared of all clot and debris with moistened laparotomy sponges. The hysterotomy incision was repaired in one locked layer. Two further figure of eight sutures needed for hemostasis. Hemostasis was noted to be good. Posterior cul-de-sac was irrigated and cleared of all clot and debris. The hysterotomy incision was again inspected and found to be hemostatic. A bilateral tubal ligation was done first on the right and then on the left by taking a loop of tube with amanda, suturing x 2, removing the segment, cauterizing the ends. Hemostasis was excellent. The uterus was reinteriorized. The tubal segments were intact and hemostatic. Hysterotomy incision was again inspected and found to be hemostatic. There was some bleeding at the edge of the bladder flap that was sutured with 3-0 vicryl. Rectus muscles could not be reapproximated. The fascia was then reapproximated with 0 Vicryl starting at the edges and meeting in the midline. The subcuticular tissues were copiously irrigated and bleeding was attended to with cautery. The skin was then closed with 4-0 Vicryl in a subcuticular fashion. All sponge, lap and needle counts correct x 2 and the patient taken to recovery in stable condition. I attest to the content of the Intraoperative Record and any orders documented therein. Any exceptions are noted below. OB Procedure Charges [id number] Add on Tubal for C/S
[2021-04-07] MEDS ORDERED: SENNA 8.6 MG TAB PO PRN (14:52)
[2021-04-07] MEDS ORDERED: BENZOCAINE 20% AER SPR 82.5 GM CAN EXT PRN (14:52)
[2021-04-07] MEDS ORDERED: DIPHTHERIA/TETANUS/PERTUSSIS 0.5 ML SYR/VIAL IM ONE (14:52)
[2021-04-07] MEDS ORDERED: HYDROCORTISONE ACETATE 25 MG SUPP PR PRN (14:52)
[2021-04-07] MEDS ORDERED: MAGNESIUM HYDROXIDE SUSP 30 ML UDC PO PRN (14:52)
--- NOTE | 2021-04-07 15:32 | Anesthesiology Progress Note ---
Date of Service April 07, 2021 Anesthesia Post Procedure Vital Signs Vital Signs: Temp Pulse Resp BP Pulse Ox 04/07/21 15:29 61 107/55 L 96 04/07/21 15:24 68 98 04/07/21 15:19 77 119/63 98 04/07/21 15:14 70 97 04/07/21 15:10 75 113/53 L 04/07/21 15:08 67 96 04/07/21 15:03 67 96 04/07/21 15:00 36.5 C 18 04/07/21 14:58 67 98 04/07/21 14:55 70 102/57 L 04/07/21 08:59 75 100 04/07/21 08:54 74 100 04/07/21 05:39 36.7 C 73 18 122/83 04/07/21 05:38 73 122/83 Transfer of Care Handoff Completed per policy Notes Mental Status: alert / awake / arousable Patient Amnestic to Procedure: Yes Nausea / Vomiting: adequately controlled Pain: adequately controlled Airway Patency, RR, SpO2: stable & adequate BP & HR: stable & adequate Hydration State: stable & adequate Neuraxial Anesthesia: was administered and sensory block is resolving Anesthetic Complications: no major complications apparent and Pt Satisfied with anesthetic care
[2021-04-07] MEDS: OXYTOCIN 20 UNITS in LACTATED RINGER'S 1,000 ML IV SCH (17:00)
[2021-04-07] MEDS: SIMETHICONE 80 MG CHEW PO SCH ×2 (18:03→20:56)
[2021-04-07] MEDS ORDERED: DROPERIDOL 5 MG/2 ML VIAL IV STA (18:44)
[2021-04-07] MEDS ORDERED: PROMETHAZINE HCL 25 MG in SODIUM CHLORIDE 0.9% 50 ML IV PRN (20:18)
[2021-04-07] MEDS: DOCUSATE SODIUM 100 MG CAP PO SCH (20:56)
[2021-04-08] MEDS: OXYTOCIN 20 UNITS in LACTATED RINGER'S 1,000 ML IV SCH (01:15)
[2021-04-08] MEDS ORDERED: PROMETHAZINE HCL 25 MG in SODIUM CHLORIDE 0.9% 50 ML IV PRN (03:01)
[2021-04-08] MEDS ORDERED: ONDANSETRON INJ 2 MG/ML 2 ML VIAL IV PRN (03:01)
[2021-04-08] MEDS ORDERED: MEPERIDINE HCL 50 MG/ML CARP IV PRN (03:01)
[2021-04-08] MEDS ORDERED: diphenhydrAMINE Capsule 25 MG CAP PO PRN (03:01)
[2021-04-08] MEDS ORDERED: KETOROLAC 30 MG/ML VIAL IV PRN (03:01)
[2021-04-08] MEDS ORDERED: DC INTRASPINAL MORPHINE SCH (03:01)
[2021-04-08] MEDS ORDERED: diphenhydrAMINE 50 MG/ML VIAL IV PRN (03:01)
[2021-04-08 06:45] LABS: Basophils # (auto) 0.01 K/uL (0-0.2); Basophils % (auto) 0.1 %; Eosinophils % (auto) 1.3 %; Hematocrit (blood only) 31.6 % (37-47); Hemoglobin 10.1 g/dL (12.0-16.0); Immature Granulocytes # (auto) 0.01 K/uL (0.00-0.02); Immature Granulocytes % (auto) 0.1 %; Lymphocytes # (auto) 0.94 K/uL (1.2-3.4); Lymphocytes % (auto) 12.5 %; Mean Corpuscular Hemoglobin 26.9 pg (25-34); Mean Corpuscular Volume 84.3 fL (80-100); Mean Platelet Volume 11.3 fL (7.4-10.4); Monocytes # (auto) 0.46 K/uL (0.11-0.59); Monocytes % (auto) 6.1 %; Neutrophils # (auto) 5.98 K/uL (1.4-6.5); Neutrophils % (auto) 79.9 %; Platelet Count 182 K/uL (130-400); RDW Coefficient of Variation 15.2 % (11.5-14.5); RDW Standard Deviation 46.4 fL (36.4-46.3); Red Blood Count 3.75 M/uL (4.2-5.4)
--- NOTE | 2021-04-08 07:32 | Obstetrical Progress Note ---
Date of Service <Kristy MéndezDO - Last Filed: 04/08/21 07:47> April 08, 2021 Assessment & Plan <Kristy DevDO - Last Filed: 04/08/21 07:47> (1) Status post section: (2) Encounter for care and examination after delivery: 35 yo post op day1 from c/s with tubal ligation, doing well. -Continue routine post care. -vital signs reviewed and WNL (Tmax 37.2) -Blood Type A+, GBS-, Rubella immune -Encourage ambulation, monitor and control pain with Motrin, tylenol PRN, resume regular diet, monitor lochia -encourage breast feeding -hemoglobin 10.1 Day #:: 1 <Buck Clinton MD - Last Filed: 04/09/21 08:29> (1) Status post section: (2) Encounter for care and examination after delivery: Subjective <Kristycleveland Méndez DO - Last Filed: 04/08/21 07:47> Ambulation: ambulating normally Voiding: voiding difficulty Passing Gas:: No Diet Tolerance:: clear liquids Lochia:: Moderate Feeding Type:: breast feeding Current Pain Level(1-10): 2 Review of Systems Denies fever, chills, sweats Denies shortness of breath, difficulty breathing, chest pain, palpitations, chest pressure. Denies breast pain. Denies dysuria. Denies headache or changes in vision. Physical Exam <Kristy DevDO - Last Filed: 04/08/21 07:47> General: Alert, oriented. No acute distress. Cardiac: Regular rate and rhythm, no murmurs/rubs/gallops. Respiratory: Clear to auscultation bilaterally a/p, no wheezes/rales/rhonchi. No increased work of breathing. Symmetrical chest rise. No respiratory distress. Abdomen: Soft, nontender, nondistended. Bowel sounds present. Uterus: Uterine fundus firm, palpable at umbilicus. Surgical scar clean and healing well. Lower Extremities: No lower extremity edema or swelling. No deep calf pain. Melissa's negative bilaterally. Results & Data ([facility]) <Kristy Méndez DO - Last Filed: 04/08/21 07:47> Vital Signs (Past 12 Hours) Vital Signs Temp Pulse Resp BP Pulse Ox 04/08/21 02:50 37.2 C 78 20 102/65 96 04/07/21 23:40 37.2 C 67 20 110/74 98 04/07/21 22:00 16 96 04/07/21 21:05 16 97 04/07/21 20:05 16 99 <Buck Clinton MD - Last Filed: 04/09/21 08:29> Co-Signing Physician Notes patient seen and evaluated Agree with the above assessment and plan. routine care Resident Activity Tracking <Kristy Méndez DO - Last Filed: 04/08/21 07:47> Resident Involvement: Resident Care Provided Care Provided: Adult [facility]
--- NOTE | 2021-04-08 07:54 | Medical Student Progress Note ---
Date of Service April 08, 2021 Assessment & Plan (1) Status post section: (2) Encounter for care and examination after delivery: Plan: 35 yo post op day1 from c/s with bilateral tubal ligation, doing well. -Continue routine post care -Vital signs stable and WNL (Tmax 37.2) -Physical exam normal -PO advancing from liquid to solids, voiding well, passing gas -Blood type A+, GBS negative, Rubella immune -Hemoglobin 10.1 -Encourage ambulation, monitor and control pain with Motrin, tylenol PRN, resume regular diet, monitor lochia -Encourage breast feeding -Reaching milestones Admission and Anticipated Discharge Date Admission Date: April 07, 2021 Philip Toro is feeling okay this morning. She states she has minimal pain (2/10 which is improved from yesterday). She is tired from being up for most of the night . She has been ambulating and voiding well, passing flatus bu t not stool yet. She has minimal bleeding which she feels is improved from yesterday. She plans to exclusively breastfeed. She reports no fever, chills, headache, sob, chest pain, breast pain or discharge, or abd pain. Physical Exam Physical Exam: General: Alert, oriented. Sitting comfortably in bed, in no acute distress. HEENT: EOM intact, PERRL. Cardiac: Regular rate and rhythm, no murmurs/rubs/gallops. Respiratory: Clear to auscultation bilaterally, no wheezes/rales/rhonchi. No increased work of breathing. Symmetrical chest rise. No respiratory distress. Abdomen: Soft, nontender, nondistended. Uterus: Uterine fundus firm, palpable at umbilicus. Surgical scar with dermabond clean and healing well; no erythema. Lower Extremities: No lower extremity edema or swelling. No deep calf pain. Melissa's negative bilaterally. Results & Data ([facility]) Vital Signs (Past 12 Hours) Vital Signs Temp Pulse Resp BP Pulse Ox 04/08/21 02:50 37.2 C 78 20 102/65 96 04/07/21 23:40 37.2 C 67 20 110/74 98 04/07/21 22:00 16 96 04/07/21 21:05 16 97 04/07/21 20:05 16 99 Supervising Attestation Patient seen and evaluated and agree with the above findings and plan. Routine OB care
[2021-04-08] MEDS: FERROUS SULFATE 325 MG TAB PO SCH (08:22)
[2021-04-08] MEDS: oxyCODONE/ACETAMINOPHEN 5mg/325mg TAB PO PRN ×4 (08:23→21:26)
[2021-04-08] MEDS: DOCUSATE SODIUM 100 MG CAP PO SCH ×2 (08:23→21:25)
[2021-04-08] MEDS: PRENATAL VITAMIN 1 TAB PO SCH (08:23)
[2021-04-08] MEDS: SIMETHICONE 80 MG CHEW PO SCH ×4 (08:23→21:26)
[2021-04-08] MEDS: IBUPROFEN 600 MG TAB PO PRN ×3 (12:18→21:26)
[2021-04-08] MEDS ORDERED: bisacodyL 5 MG TABEC PO SCH (20:00)
[2021-04-09] MEDS: IBUPROFEN 600 MG TAB PO PRN ×5 (04:58→23:58)
[2021-04-09] MEDS: oxyCODONE/ACETAMINOPHEN 5mg/325mg TAB PO PRN ×5 (04:58→23:59)
--- NOTE | 2021-04-09 06:10 | Obstetrical Progress Note ---
Date of Service <Kristy Méndez DO - Last Filed: 04/09/21 06:55> April 09, 2021 Assessment & Plan <Kristy Méndez DO - Last Filed: 04/09/21 06:55> (1) Status post section: (2) Encounter for care and examination after delivery: (3) Elderly multigravida: 35 yo post op day2 from c/s with tubal ligation, doing well. -Continue routine post care. -vital signs reviewed and WNL (Tmax 37.2) -Blood Type A+, GBS-, Rubella immune -Encourage ambulation, monitor and control pain with Motrin, tylenol PRN, resume regular diet, monitor lochia -encourage breast feeding -hemoglobin 10.1 Day #:: 2 <Adalid Foy MD, FACOG - Last Filed: 04/09/21 07:23> (1) Status post section: (2) Encounter for care and examination after delivery: (3) Elderly multigravida: Subjective <Kristy Méndez DO - Last Filed: 04/09/21 06:55> Ambulation: ambulating normally Voiding: no voiding problems Passing Gas:: Yes Diet Tolerance:: regular diet Lochia:: Small Feeding Type:: breast feeding (with bottle supplementation) Current Pain Level(1-10): 1 Review of Systems Denies fever, chills, sweats Denies shortness of breath, difficulty breathing, chest pain, palpitations, chest pressure. Denies breast pain. Denies dysuria. Denies headache or changes in vision. Physical Exam <DO Minnie Sultana Last Filed: 04/09/21 06:55> General: Alert, oriented. No acute distress. Cardiac: Regular rate and rhythm, no murmurs/rubs/gallops. Respiratory: Clear to auscultation bilaterally a/p, no wheezes/rales/rhonchi. No increased work of breathing. Symmetrical chest rise. No respiratory distress. Abdomen: Soft, nontender, nondistended. Bowel sounds present. Uterus: Uterine fundus firm, palpable at umbilicus. Surgical scar clean and healing well. Lower Extremities: No lower extremity edema or swelling. No deep calf pain. Melissa's negative bilaterally. Results & Data ([facility]) <DO Minnie Sultana Last Filed: 04/09/21 06:55> Vital Signs (Past 12 Hours) Vital Signs Temp Pulse Resp BP Pulse Ox 04/08/21 23:40 37.2 C 81 18 101/67 97 04/08/21 20:00 37.3 C 89 18 99/68 L 97 <Adalid Foy MD, FACOG - Last Filed: 04/09/21 07:23> Co-Signing Physician Notes Resident Physician Supervision Note: I was present with Dr. Méndez during the history and exam. I discussed the case with the resident and agree with the findings and plan as documented in the note. Any exceptions or clarifications are listed here: [None] Documented By: Adalid Foy MD, [facility] Resident Activity Tracking <Kristy Méndez DO - Last Filed: 04/09/21 06:55> Resident Involvement: Resident Care Provided Care Provided: Adult Hospital Medicine
[2021-04-09 07:08] LABS: Hematocrit (blood only) 30.9 % (37-47); Hemoglobin 9.8 g/dL (12.0-16.0)
[2021-04-09] MEDS: FERROUS SULFATE 325 MG TAB PO SCH (07:31)
[2021-04-09] MEDS: SIMETHICONE 80 MG CHEW PO SCH ×4 (07:32→20:24)
[2021-04-09] MEDS: DOCUSATE SODIUM 100 MG CAP PO SCH ×2 (07:32→20:24)
[2021-04-09] MEDS: PRENATAL VITAMIN 1 TAB PO SCH (07:32)
[2021-04-09] MEDS ORDERED: bisacodyL 10 MG SUPP PR PRN (14:52)
[2021-04-09] MEDS ORDERED: bisacodyL 5 MG TABEC PO ONE (20:20)
[2021-04-10] MEDS: IBUPROFEN 600 MG TAB PO PRN ×3 (03:48→12:47)
--- NOTE | 2021-04-10 06:03 | Obstetrical Progress Note ---
Date of Service <Kristy Méndez DO - Last Filed: 04/10/21 06:31> April 10, 2021 Assessment & Plan <Kristy Méndez DO - Last Filed: 04/10/21 06:31> (1) Status post section: (2) Encounter for care and examination after delivery: (3) Elderly multigravida: 35 yo post op day3 from c/s with tubal ligation, doing well. -Continue routine post care. -vital signs reviewed and WNL (Tmax 37.2) -Blood Type A+, GBS-, Rubella immune -Encourage ambulation, monitor and control pain with Motrin, tylenol PRN, resume regular diet, monitor lochia -encourage breast feeding -hemoglobin 9.8 -patient comfortable with home today Day #:: 3 <Delaney Holbrook MD - Last Filed: 04/10/21 07:19> (1) Status post section: (2) Encounter for care and examination after delivery: (3) Elderly multigravida: Subjective <Kristy Méndez DO - Last Filed: 04/10/21 06:31> Ambulation: ambulating normally Voiding: no voiding problems Passing Gas:: Yes Diet Tolerance:: regular diet Lochia:: Small Feeding Type:: breast feeding Current Pain Level(1-10): 0 Review of Systems Denies fever, chills, sweats Denies shortness of breath, difficulty breathing, chest pain, palpitations, chest pressure. Denies breast pain. Denies dysuria. Denies headache or changes in vision. Physical Exam <DO Minnie Sultana Last Filed: 04/10/21 06:31> General: Alert, oriented. No acute distress. Cardiac: Regular rate and rhythm, no murmurs/rubs/gallops. Respiratory: Clear to auscultation bilaterally a/p, no wheezes/rales/rhonchi. No increased work of breathing. Symmetrical chest rise. No respiratory distress. Abdomen: Soft, nontender, nondistended. Bowel sounds present. Uterus: Uterine fundus firm, palpable at umbilicus. Surgical scar clean and healing well. Lower Extremities: minor swelling left leg gradually improving No deep calf pain. Melissa's negative bilaterally. Results & Data ([facility] [place]) <rKisty Méndez DO - Last Filed: 04/10/21 06:31> Vital Signs (Past 12 Hours) Vital Signs Temp Pulse Resp BP Pulse Ox 04/09/21 23:55 36.9 C 81 16 113/74 97 04/09/21 20:00 37.2 C 70 16 117/81 98 <Delaney Holbrook MD - Last Filed: 04/10/21 07:19> Co-Signing Physician Notes Resident Physician Supervision Note: I interviewed and examined the patient. Discussed with Dr. Méndez and agree with findings and plan as documented in the note. Any exceptions or clarifications are listed here: POD3 from rCS/BTL, doing well. VSS, exam benign and wnl, incision c/d/i. Desires d/c home and stable to do so. F/u 6 wks for pp visit Documented By: Delaney Holbrook MD Resident Activity Tracking <Kristy Méndez DO - Last Filed: 04/10/21 06:31> Resident Involvement: Resident Care Provided Care Provided: Adult [facility]
[2021-04-10] MEDS: DOCUSATE SODIUM 100 MG CAP PO SCH (08:34)
[2021-04-10] MEDS: FERROUS SULFATE 325 MG TAB PO SCH (08:34)
[2021-04-10] MEDS: SIMETHICONE 80 MG CHEW PO SCH ×2 (08:34→12:47)
[2021-04-10] MEDS: PRENATAL VITAMIN 1 TAB PO SCH (08:34)
[2021-04-10] MEDS: oxyCODONE/ACETAMINOPHEN 5mg/325mg TAB PO PRN (12:45)
--- NOTE | 2021-04-11 12:43 | Discharge Summary (DS) ---
DATE OF ADMISSION: 04/07/2021 DATE OF DISCHARGE: 04/10/2021 ADMIT DIAGNOSES: Intrauterine at 39 weeks with a history of previous section x2. DISCHARGE DIAGNOSES: Intrauterine at 39 weeks with a history of previous section x2. PROCEDURES: Repeat lower transverse section with bilateral tubal ligation. HISTORY: The patient is a 35-year-old , at 39 weeks' gestational age who presents for repeat C- section as she has had 2 previously and desires bilateral tubal sterilization. The is unco mplicated. She is AMA, but testing has been reassuring. For the rest of the patient's detailed histo ry and physical, please see her dictated history and physical. ASSESSMENT: This is a 35-year-old 4, para 2, at 39 weeks, who presents for repeat s ection and tubal ligation with history of section x2. HOSPITAL COURSE: The patient was admitted and underwent a repeat lower transverse section w ith bilateral modified Pep tubal ligation. Estimated blood loss was 600 mL. Findings were a vi able female infant with Apgars of 8 and 9. Normal uterus, tubes and ovaries were noted bilaterally. There was a peritoneal cyst off the left ovary that was removed. The patient's postoperative course was uncomplicated. She tolerated a regular diet, ambulated withou t difficulty, voided after the removal of her Vasquez catheter and her pain is well controlled with ora l pain medications. Her discharge hemoglobin was 9.8. She was discharged on day #3 with routine pos tpartum care and to return in 6 weeks for a postoperative visit. Job ID: [id number]
== END 2021-04-10 14:25 | disposition home or self-care (01) | DRG 785 ==
LOC: 4S1 → EDSTATUS 07:30 → 4S2 18:00
PROC: M.PPTLD (2021-04-07 07:30)
DX: O34.211 Maternal care for low transverse scar from previous cesarean delivery; Z20.822 Contact with and (suspected) exposure to COVID-19; Z3A.39 39 weeks gestation of pregnancy; Z91.048 Other nonmedicinal substance allergy status; Z88.0 Allergy status to penicillin; Z30.2 Encounter for sterilization; Z37.0 Single live birth